=== PATIENT | male | born 1995 | race African-American/Black ===

== ENCOUNTER 2021-07-28 22:53 | Emergency (ER) | payer MEDICAID, SELFPAY ==
[2021-07-28 23:04] VITALS: BP 138/78; PULSE 92; RESP 18; TEMP 36.6; O2SAT 97; BMI 37.5
--- NOTE | 2021-07-28 23:15 | ED_ITS ---
HPI - Psych General Chief Complaint: Psychiatric Symptoms Stated Complaint: PSYCH CRISIS Time Seen by Provider: 07/28/21 23:15 Source: patient Mode of arrival: ambulatory Limitations: no limitations History of Present Illness HPI Narrative: 26-year-old male presents via EMS for a report of bizarre behavior. EMS reports that patient call the police while in the [facility] parking lot to state that he was cold and had no place to go. MD complaint: other (Needs a place to sleep) Onset (ago): day(s) Relieving factors: none Exacerbating factors: none Associated psychiatric symptoms: none Associated symptoms: denies other symptoms Treatments prior to arrival: none Related Data Allergies Allergy/AdvReac Type Severity Reaction Status Date / Time No Known Allergies Allergy Unverified 02/08/20 19:41 [No Known Allergies*] Review of Systems Review of Systems: Yes Other (Unobtainable due to patient noncompliance.) [facility] Past Medical History Attestation statement: The following information was validated with the patient. Source: old records reviewed Physical Exam Vital Signs: Vital Signs: Last Vital Signs Temp 98 F 07/28/21 23:04 Pulse 92 07/28/21 23:04 Resp 18 07/28/21 23:04 BP 138/78 07/28/21 23:04 Pulse Ox 97 07/28/21 23:04 BMI result Body Mass Index 37.5 Appearance: Alert. Oriented X3. No acute distress. Eyes: Pupils equal, round and reactive to light. ENT: Pharynx normal. Neck: Normal inspection. CVS: Normal heart rate Respiratory: No respiratory distress. Abdomen: Soft and nontender. Skin: Skin warm and dry. Normal skin color. Normal skin turgor. Extremities: Gait well-balanced well coordinated. Neuro: No motor deficit. No sensory deficit. Course Course Course Narrative: 26-year-old male presents via EMS for a report of bizarre behavior which included a call to the police department because he was cold and needed a place to sleep. Patient states that he is looking for a place to sleep, does not want to change his clothes, and is very confrontational to all staff. Patient is not answering any questions, however denies being suicidal and homicidal. States he does not have a place to go and just wants a room. Patient states that he feels disrespected, does not feel like he is getting appropriate care, and is not redirectable. Patient was asked by several different people including this CONSTRUCTION SKILLS TEACHER what his purpose for presentation was, and he stated that he just needed a room to sleep in. The only questions he would answer was whether he was suicidal or homicidal. Was only compliant with initial vital signs, did not allow physical exam. Patient stated that he would physically assault all of us if we forced him to change his clothes. As patient is not suicidal or homicidal, and does not present with medical complaint, patient was discharged from this facility. MDM - Psych MDM Narrative Medical decision making narrative: Homeless Medical Records Attestation: I reviewed the patient's medical records. Discharge Plan Discharge Clinical Impression: Cold feeling Patient Disposition: Home, Self-Care Instructions: Conduct Disorder (ED) Additional Instructions: you presented to the emergency department for evaluation however you refused to answer any questions and threatened physical violence. He denied suicidal and homicidal ideation, and did not present with any medical complaints. Thank you for choosing this emergency department for evaluation. Please follow-up with primary care physician as needed. Return to the emergency department for any new, concerning, or worsening symptoms.
--- NOTE | 2021-07-28 23:20 | PC.NURSE ---
Patient refused to comply with exchange clerk process, made repeated verbal threat to the staff member, denied SI/HI/AVH, patient reported he needs a place to stay because it is cold and cant get to [facility], patient refused to address his problem to the provider, when offered option either address his problem (so that we can help) or discharge from the hospital, patient chose discharge option, per patient's choice he was discharged from the [facility] [place], security escorted patient out of ED POD.
== END 2021-07-29 00:15 | disposition home or self-care (01) ==
PROVIDERS: Emergency Provider Internal Medicine
DX: R20.9 Unspecified disturbances of skin sensation (principal); R46.2 Strange and inexplicable behavior; R45.6 Violent behavior; Z91.19 Patient's noncompliance with other medical treatment and regimen
CPT/HCPCS: 99281; 99282

== ENCOUNTER 2021-11-30 01:12 | Emergency (ER) | payer MEDICAID, SELFPAY ==
[2021-11-30 01:19] VITALS: BMI 37.0
--- NOTE | 2021-11-30 01:24 | ED_ITS ---
HPI - Psych General Chief Complaint: Psychiatric Symptoms Stated Complaint: CRISIS Time Seen by Provider: 11/30/21 01:16 Source: patient Mode of arrival: EMS Limitations: no limitations History of Present Illness HPI Narrative: Patient presents emergency department via EMS coming from a fpc at [facility]. Reports that he is here today because he is ?not feeling well? when asked to elaborate on this he says not good mentally . Difficulty obtaining past medical history from patient. He does state that he has not been taking medications for the past 2 months, when asked why he states because he left respite. He denies suicidal or homicidal ideations, denies hallucinations. Denies any street drug or alcohol usage. Denies any recent ill like symptoms, fevers, chills, chest pain, shortness of breath, difficulty breathing, nausea, vomiting, abdominal pain. Related Data Home Medications Medication Instructions Recorded Confirmed No Known Home Meds 11/30/21 11/30/21 Allergies Allergy/AdvReac Type Severity Reaction Status Date / Time No Known Allergies Allergy Unverified 02/08/20 19:41 [No Known Allergies*] Review of Systems Review of Systems: Constitutional : No Fever, No Chills ENT/Mouth : No Ear Pain, No Nasal Congestion, No sore throat Eyes: No Eye Pain, No Swelling, No Redness Cardiovascular : No Chest Pain, No SOB Respiratory : No Cough, No Sputum, No Dyspnea Gastrointestinal : No Nausea, No Vomiting, No Diarrhea, No Hematochezia, No Melena Genitourinary : No Dysuria, No Urinary Frequency, No Hematuria Musculoskeletal : No Myalgias Skin : No Skin Lesions, No rash Neuro : No Weakness, No Numbness, No Paresthesias, No Dizziness, No Headache Psych : Vague mentally unwell no SI/HI Heme/Lymph: No Lymphadenopathy Endocrine : No Polyuria, No Polydipsia Yes all other systems are reviewed and are negative [facility] Past Medical History Attestation statement: The following information was validated with the patient. Source: old records reviewed Social History Social History Advance Directives: No Physical Exam Vital Signs: Vital Signs: Last Vital Signs Temp 98.7 F 11/30/21 01:28 Pulse 92 11/30/21 01:28 Resp 18 11/30/21 01:28 BP 135/85 11/30/21 01:28 Pulse Ox 98 11/30/21 01:28 O2 Del Method 11/30/21 01:28 BMI result Body Mass Index 37.0 Vital signs have been reviewed as normal and appeared to be correct. Blood pressure normal.? Heart rate normal.? Respiration rate normal. Temperature normal.? Oxygen saturation normal. Appearance: Alert.?Oriented to person, place and time. Poor eye contact. Difficulty keeping train of thoughts. Appears to be responding to external stimuli at times. Eyes: Pupils equal, round and reactive to light.? ENT: Pharynx normal.?? Neck: Normal inspection.? Neck supple.?? CVS: Heart sounds normal. Normal heart rate and rhythm.? Pulses normal.?? Respiratory: No respiratory distress.? Lung sounds clear to auscultation bilaterally?? Abdomen: Soft and non-tender. Normoactive bowel sounds. Skin: Skin warm and dry.? Normal skin color.? Extremities: No lower extremity edema.? Neuro: Moves all extremities spontaneously. Sensation intact bilaterally. CN II- XII intact. No focal neuro deficits. Ambulates with normal steady gait. Course Course Course Narrative: Patient is a 26-year-old male with a past medical history of schizophrenia, sent to emergency department today for feeling mentally unwell . Vague historian, however denies SI/HI/hallucinations/drug or alcohol usage. He is overall well- appearing, well-nourished, hemodynamically stable. Answering most questions appropriately. Calm and cooperative with staff. Has no physical complaints at this time. Benign physical exam. Will obtain basic labs, COVID-19 testing, drug of abuse screen and ethanol level. Patient will be referred to [facility] for further evaluation and disposition. Reevaluation(s) Reevaluation #1: Discussed patient with ED attending Dr. Hutton, labs and urinalysis pending at this time. N consult placed, will need to be placed in physician observation as he will require time to be evaluated and have appropriate disposition. Time: 01:42 [facility] - Psych Medical Records Attestation: I reviewed the patient's medical records. Lab Data Attestation: I reviewed the patient's lab results. Labs: Lab Results 11/30/21 Range/Units 01:37 COVID-19 (LUZ MARINA) Negative (Negative) COVID-19 Clin Com See Note Discharge Plan Discharge Clinical Impression: Schizophrenia Patient Disposition: Still a Patient Prescriptions: No Action No Known Home Meds
[2021-11-30 01:28] VITALS: BP 135/85; PULSE 92; RESP 18; TEMP 37.1; O2SAT 98
[2021-11-30 02:03] LABS: COVID-19 Test Negative (Negative); IDNOW Serial# 16C4AD1C
[2021-11-30] MEDS: traZODone HCL 100 MG TABLET PO (03:19)
--- NOTE | 2021-11-30 05:28 | PC.NURSE ---
Went into POD to draw blood on this patient at this time. Pt woke from sleep and refused to have his blood drawn. RN aware and Provider aware.
--- NOTE | 2021-11-30 05:46 | PC.NURSE ---
Patient is in bed appears sleeping, no distress observed/reported, requested for Trazodone for sleep, Trazodone 100 mg administered as ordered at 0319, with + effect, patient refused lab draw, pending urine sample, [facility] referral completed/confirmed/pending ETA, VSS, behavior appropriate, patient is currently not on any medication, will continue to monitor.
--- NOTE | 2021-11-30 07:11 | PC.NURSE ---
patient appears to remain asleep at present respirations are even and unlabored patient appears in no distress
[2021-11-30 07:52] LABS: Amphetamine Screen Urine Not Detected (Not Detect); Barbiturates, Urine Not Detected (Not Detect); Benzodiazepines Screen Urine Not Detected (Not Detect); Cannabinoid Screen Urine Not Detected (Not Detect); Cocaine Screen Urine Not Detected (Not Detect); Fentanyl, urine Not Detected (Not Detect); Opiate Screen Urine Not Detected (Not Detect); Phencyclidine Screen Urine Not Detected (Not Detect)
[2021-11-30 11:34] VITALS: BP 134/107; PULSE 88; RESP 16; TEMP 36.8; O2SAT 99
--- NOTE | 2021-11-30 11:39 | PC.NURSE ---
LAMA Corbin aware of patients BP
== END 2021-11-30 14:29 | disposition home or self-care (01) ==
PROVIDERS: Emergency Medicine; Emergency Provider Student in an Organized Health Care Education/Training Program
DX: F20.9 Schizophrenia, unspecified (principal); Z20.822 Contact with and (suspected) exposure to COVID-19; Z91.14 Patient's other noncompliance with medication regimen
CPT/HCPCS: 80307; 87635; 99284

== ENCOUNTER 2021-12-19 02:05 | Emergency (ER) | payer MEDICAID, SELFPAY ==
--- NOTE | ~2021-12-19 | CT_ITS ---
EXAMINATION: CT HEAD WITHOUT CONTRAST CLINICAL INFORMATION: Fall. Head strike. COMPARISON: None TECHNIQUE: Contiguous axial imaging was performed from the skull base to vertex without intravenous administration of contrast. This CT examination was performed using dose optimization techniques as appropriate, variously including the following: *Automated exposure control *Adjustment of mA and/or kV according to patient size (this includes techniques or standardized protocols for targeted exams where dose is matched to indication/reason for exam; i.e. extremities or head) *Use of iterative reconstruction technique DLP: 752 mGy-cm FINDINGS: There is no evidence of acute intracranial hemorrhage or territorial infarction. No abnormal mass effect or midline shift is seen. Feng to white matter differentiation is well preserved. No extra-axial fluid collections are identified. The ventricles are normal in size. There is no abnormal attenuation within the brain parenchyma. The osseous structures and soft tissues are normal. The mastoid air cells and visualized portions of the paranasal sinuses are well aerated. CT/CT head/brain wo con IMPRESSION: No acute intracranial pathology.
[2021-12-19 02:15] VITALS: BMI 38.5
[2021-12-19] MEDS: LORazepam 1 MG TABLET PO (02:42)
[2021-12-19] MEDS: traZODone HCL 100 MG TABLET PO (02:42)
[2021-12-19 02:58] VITALS: BP 135/84; PULSE 88; RESP 18; TEMP 36.4; O2SAT 97
[2021-12-19 03:57] LABS: COVID-19 Test Negative (Negative)
--- NOTE | 2021-12-19 06:39 | PC.NURSE ---
Patient is in bed appears sleeping, patient restless at the time of arrival, Ativan 1 mg po and Trazodone 100 mg PO administered as ordered at 0242 with positive effect, behavior erratic but non concerning, CT of head completed/result unremarkable, [facility] referral completed/confirmed/pending ETA, med rec completed/patient is off his medication for months, VSS, urine pending, will continue to monitor.
[2021-12-19 08:00] VITALS: RESP 17
--- NOTE | 2021-12-19 09:04 | PC.NURSE ---
pt is sleeping resp even and unlabored. bhn attempted to see pt x 2, pt states/indicated that he is sleepy. bhn to attempt later today.
--- NOTE | 2021-12-19 10:12 | PC.NURSE ---
pt seen by ed mll (december) pt aware of plan of care.
--- NOTE | 2021-12-19 10:54 | ED.PSYCH ---
HPI - Psych General Chief Complaint: Psychiatric Symptoms Stated Complaint: fall Time Seen by Provider: 12/19/21 02:30 Source: patient Mode of arrival: ambulatory Limitations: no limitations History of Present Illness HPI Narrative: 26 yold male with past medical history of schizophrenia, and bipolar brought to ED for evaluation. Patient fell on his head very early this morning and was altered and brought to the ED for evaluation. Due to significant Psycg history EMS started patient should be evaluated for psych. Patient presently denies any suicidal or homicidal thoughts. Patient is not depressed. Patient came to the ED due to him falling hit his head. Patient denies any auditory / visual hallucinations. Related Data Home Medications Medication Instructions Recorded Confirmed No Known Home Meds 12/19/21 12/19/21 Allergies Allergy/AdvReac Type Severity Reaction Status Date / Time No Known Allergies Allergy Unverified 02/08/20 19:41 [No Known Allergies*] Review of Systems Review of Systems: Fall hit his head. Yes all other systems are reviewed and are negative Constitutional: Constitutional: Reports as per HPI and Reports no additional constitutional complaints [facility] Social History Social History Advance Directives: No Advance Directives Information Provided: Yes Physical Exam Vital Signs: Vital Signs: Last Vital Signs Temp 98.2 F 12/19/21 13:49 Pulse 77 12/19/21 13:49 Resp 18 12/19/21 13:49 BP 147/64 H 12/19/21 13:49 Pulse Ox 99 12/19/21 13:49 O2 Del Method 12/19/21 13:49 BMI result Body Mass Index 38.5 Const: General: cooperative, healthy appearing, comfortable, no acute distress, well developed, alert, awake and Physically active Orientation/consciousness: patient oriented x3 HEENT: Head: Yes normal to inspection, Yes No palpable skull fracture present, Yes normocephalic, Yes atraumatic and No abrasion Eyes: General: appearance normal, both eyes and all related structures Neck: Neck: Yes normal visual inspection, Yes full ROM, Yes no lymphadenopathy, Yes no meningeal signs, Yes trachea midline, Yes supple, No anterior neck swelling and No tender Chest: Chest palpation & inspection: normal inspection of the chest and normal palpation of entire chest wall Resp: Effort & Inspection: normal respiratory effort and able to speak in complete sentences Auscultation: clear to auscultation bilaterally Cardio: Jugular venous distension: no JVD Heart sounds: S1 normal heart sound present and S2 normal heart sound present GI: Inspection: Yes normal to inspection and No abdominal wall ecchymosis Palpation (GI): Soft to palpation, not firm, nontender, no guarding and not rigid : General: No CVA tenderness and Yes no CVA tenderness Back/Spine/Pelvis: Back: no CVA tenderness, No CVA tenderness and No back tenderness Skin: General skin exam: no rashes or lesions noted and elasticity normal Neuro: General: patient oriented x3, gait normal, no meningeal signs and CN's II-XI intact bilaterally Cranial nerves: Yes CN's II-XII intact bilaterally Extrem: General: Yes normal to inspection and Yes full ROM Psych: Appearance: grossly normal, well kempt and not disheveled Course Course Course Narrative: patient had head CT scan ordered that was normal. Waiting for UA ND . Crisis consult placed Reevaluation(s) Reevaluation #1: Patient seen by [facility] states patient is safe for discharge. Patient is not suicidal or homicidal. Patient is not depressed. Patient denies any auditory / visual hallucination. She states patient will be discharged and referred psych pharmacological urgent care to get his psych meds. Time: 18:12 MDM - Psych MDM Narrative Medical decision making narrative: head injury. B Lab Data Result diagrams: 12/19/21 16:15 12/19/21 16:15 Labs: Lab Results 12/19/21 12/19/21 12/19/21 Range/Units 03:33 16:15 16:15 WBC 6.2 (4.8-10.8) X10*3/uL RBC 5.33 (4.60-5.80) X10*6/uL Hgb 15.1 (14.0-18.0) g/dl Hct 44.5 (42.0-52.0) % MCV 83.5 (80.0-98.0) fL MCH 28.3 (27.0-33.0) pg MCHC 33.9 (31.0-36.0) g/dl RDW 13.0 (11.0-16.0) % Plt Count 281 (160-400) X10*3/uL MPV 8.9 L (9.4-12.4) fL Immature Gran % (Auto) 0.3 (0.0-0.4) % Neut % (Auto) 50.8 (45-73) % Lymph % (Auto) 34.6 (20-40) % Hudspeth % (Auto) 9.9 (2-11) % Eos % (Auto) 3.9 (0-4) % Baso % (Auto) 0.5 (0-2) % Lymph # (Auto) 2.1 (1.2-4.9) X10*3/uL Hudspeth # (Auto) 0.6 (0.1-1.2) X10*3/uL Eos # (Auto) 0.2 (0.0-0.4) X10*3/uL Baso # (Auto) 0.0 (0.0-0.2) X10*3/uL Abs Immat Gran (auto) 0.02 (0.00-0.03) X10*3/uL Absolute Neuts (auto) 3.1 (2.0-8.3) x10*3/uL Absolute Nucleated RBC 0.000 (0.0-0.012) X10*3/uL Nucleated RBC % (auto) 0.0 (0.0-0.2) /100WBC Sodium 142 (135-145) mmol/L Potassium 4.1 (3.3-5.1) mmol/L Chloride 104 (96-108) mmol/L Carbon Dioxide 27 (22-29) mmol/L Anion Gap 15 (12-20) BUN 12 (9-16) mg/dL Creatinine 1.37 (0.5-1.4) mg/dL Estim Creat Clear Calc 117.8 Estimated GFR > 60 Random Glucose 105 (60-115) mg/dL Calcium 9.9 (8.4-10.2) mg/dL Total Bilirubin 0.4 (0.0-1.0) mg/dL AST 40 H (5-37) U/L ALT 44 H (0-40) U/L Alkaline Phosphatase 91 (39-117) U/L Total Protein 8.2 H (6.5-8.0) g/dL Albumin 5.0 (3.5-5.0) g/dL Urine Opiates Screen (Not Detect) Urine Fentanyl Screen (Not Detect) Ur Barbiturates Screen (Not Detect) Ur Phencyclidine Scrn (Not Detect) Ur Amphetamines Screen (Not Detect) U Benzodiazepines Scrn (Not Detect) Urine Cocaine Screen (Not Detect) U Marijuana (THC) Screen (Not Detect) COVID-19 ([facility]Z MARINA) Negative (Negative) COVID-19 Clin Com See Note 12/19/21 Range/Units 16:15 WBC (4.8-10.8) X10*3/uL RBC (4.60-5.80) X10*6/uL Hgb (14.0-18.0) g/dl Hct (42.0-52.0) % MCV (80.0-98.0) fL MCH (27.0-33.0) pg MCHC (31.0-36.0) g/dl RDW (11.0-16.0) % Plt Count (160-400) X10*3/uL MPV (9.4-12.4) fL Immature Gran % (Auto) (0.0-0.4) % Neut % (Auto) (45-73) % Lymph % (Auto) (20-40) % Hudspeth % (Auto) (2-11) % Eos % (Auto) (0-4) % Baso % (Auto) (0-2) % Lymph # (Auto) (1.2-4.9) X10*3/uL Hudspeth # (Auto) (0.1-1.2) X10*3/uL Eos # (Auto) (0.0-0.4) X10*3/uL Baso # (Auto) (0.0-0.2) X10*3/uL Abs Immat Gran (auto) (0.00-0.03) X10*3/uL Absolute Neuts (auto) (2.0-8.3) x10*3/uL Absolute Nucleated RBC (0.0-0.012) X10*3/uL Nucleated RBC % (auto) (0.0-0.2) /100WBC Sodium (135-145) mmol/L Potassium (3.3-5.1) mmol/L Chloride (96-108) mmol/L Carbon Dioxide (22-29) mmol/L Anion Gap (12-20) BUN (9-16) mg/dL Creatinine (0.5-1.4) mg/dL Estim Creat Clear Calc Estimated GFR Random Glucose (60-115) mg/dL Calcium (8.4-10.2) mg/dL Total Bilirubin (0.0-1.0) mg/dL AST (5-37) U/L ALT (0-40) U/L Alkaline Phosphatase (39-117) U/L Total Protein (6.5-8.0) g/dL Albumin (3.5-5.0) g/dL Urine Opiates Screen Not Detected (Not Detect) Urine Fentanyl Screen Not Detected (Not Detect) Ur Barbiturates Screen Not Detected (Not Detect) Ur Phencyclidine Scrn Not Detected (Not Detect) Ur Amphetamines Screen Not Detected (Not Detect) U Benzodiazepines Scrn Not Detected (Not Detect) Urine Cocaine Screen Not Detected (Not Detect) U Marijuana (THC) Screen Not Detected (Not Detect) COVID-19 ([facility]Z MARINA) (Negative) COVID-19 Clin Com Discharge Plan Discharge Clinical Impression: Bipolar disorder, Head injury Patient Disposition: Home, Self-Care Instructions: Bipolar Disorder (ED), Head Injury (ED) Additional Instructions: return to the ED for any suicidal / homicidal ideation, auditory/visual hallucinations, any physical complaints, any other concerning symptoms. Please follow-up with urgent care to get your prescriptions. Please follow-up with the primary care provider and psychiatrist. Prescriptions: No Action No Known Home Meds Print Language: Pakistani
[2021-12-19 13:49] VITALS: BP 147/64; PULSE 77; RESP 18; TEMP 36.8; O2SAT 99
--- NOTE | 2021-12-19 15:26 | PC.NURSE ---
SARIKA LAM (CHD, ) CALL AND WAS UPDATED ON PT STATUS.
[2021-12-19 16:21] LABS: MANUAL DIFF FLAG NO
[2021-12-19 16:23] LABS: Basophils Percent Auto 0.5 % (0-2); Eosinophils Absolute Auto 0.2 X10*3/uL (0.0-0.4); Eosinophils Percent Auto 3.9 % (0-4); Hematocrit 44.5 % (42.0-52.0); Hemoglobin 15.1 g/dl (14.0-18.0); Imm Gran Abs Auto 0.02 X10*3/uL (0.00-0.03); Imm Gran Pct Auto 0.3 % (0.0-0.4); Lymphocytes Absolute Auto 2.1 X10*3/uL (1.2-4.9); Lymphocytes Percent Auto 34.6 % (20-40); Mean Corpuscular HGB Conc 33.9 g/dl (31.0-36.0); Mean Corpuscular Hemoglobin 28.3 pg (27.0-33.0); Mean Corpuscular Volume 83.5 fL (80.0-98.0); Mean Platelet Volume 8.9 fL (9.4-12.4); Monocytes Absolute Auto 0.6 X10*3/uL (0.1-1.2); Monocytes Percent Auto 9.9 % (2-11); Neutrophils Absolute Auto 3.1 x10*3/uL (2.0-8.3); Neutrophils Percent Auto 50.8 % (45-73); Platelet Count 281 X10*3/uL (160-400); Red Blood Count 5.33 X10*6/uL (4.60-5.80); White Blood Count 6.2 X10*3/uL (4.8-10.8)
[2021-12-19 16:44] LABS: Amphetamine Screen Urine Not Detected (Not Detect); Barbiturates, Urine Not Detected (Not Detect); Benzodiazepines Screen Urine Not Detected (Not Detect); Cannabinoid Screen Urine Not Detected (Not Detect); Cocaine Screen Urine Not Detected (Not Detect); Fentanyl, urine Not Detected (Not Detect); Opiate Screen Urine Not Detected (Not Detect); Phencyclidine Screen Urine Not Detected (Not Detect)
[2021-12-19 16:45] LABS: Alanine Aminotransferase 44 U/L (0-40); Alkaline Phosphatase 91 U/L (39-117); Anion Gap 15 (12-20); Aspartate Amino Transferase 40 U/L (5-37); Bilirubin Total 0.4 mg/dL (0.0-1.0); Blood Urea Nitrogen 12 mg/dL (9-16); Calcium 9.9 mg/dL (8.4-10.2); Carbon Dioxide 27 mmol/L (22-29); Chloride 104 mmol/L (96-108); Creatinine Clr Calc Pharmacy 117.8; Estimated Glomerular Filt Rate > 60; Glucose Random 105 mg/dL (60-115); Potassium 4.1 mmol/L (3.3-5.1); Sodium 142 mmol/L (135-145); Total Protein 8.2 g/dL (6.5-8.0)
--- NOTE | 2021-12-19 17:32 | PC.NURSE ---
[facility] HERE FOR PT ASSESSMENT.
[2021-12-19 21:50] LABS: Appearance Urine CLEAR; Color Urine YELLOW; Glucose Urine UA NEG (NEG); Leukocyte Esterase Urine NEG (NEG); Nitrite Urine NEG (NEG); PH 5.5 (5.0-8.0); Specific Gravity - Urine >= 1.030 (1.005-1.025); Urine Blood TRACE (NEG); Urine Ketones NEG (NEG); Urine Protein NEG (NEG-TRACE)
[2021-12-19 21:58] LABS: Hyaline Casts Urine 0-2 /LPF; Mucus Urine 1+ /LPF; Squamous Epithelial Cell Urine TRACE /LPF
[2021-12-19 21:59] LABS: WBC Urine 0-2 /HPF (0-4)
== END 2021-12-19 18:41 | disposition home or self-care (01) ==
PROVIDERS: Physician Assistant; Emergency Provider Student in an Organized Health Care Education/Training Program
DX: F25.0 Schizoaffective disorder, bipolar type (principal); S09.90XA Unspecified injury of head, initial encounter; W19.XXXA Unspecified fall, initial encounter; F32.A Depression, unspecified; Z20.822 Contact with and (suspected) exposure to COVID-19; Y93.9 Activity, unspecified; Y92.9 Unspecified place or not applicable; Y99.8 Other external cause status
CPT/HCPCS: 36415; 70450; 80053; 80307; 81001; 85025; 87635; 99283; 99284

== ENCOUNTER 2021-12-26 05:52 | Emergency (ER) | payer MEDICAID, SELFPAY ==
[2021-12-26 05:55] VITALS: BP 137/78; PULSE 84; RESP 16; TEMP 36.3; O2SAT 96; BMI 35.9
[2021-12-26 06:27] LABS: COVID-19 Test Negative (Negative)
--- NOTE | 2021-12-26 06:37 | ED.PSYCH ---
HPI - Psych General Chief Complaint: Psychiatric Symptoms Stated Complaint: crisis Time Seen by Provider: 12/26/21 06:37 Source: patient Mode of arrival: EMS Limitations: no limitations History of Present Illness HPI Narrative: states he just needs a break from the senior living Onset (ago): day(s) (few) Duration: constant History of same: No Relieving factors: none Exacerbating factors: other (senior living) Context: significant life stressor Associated psychiatric symptoms: depression Associated symptoms: denies other symptoms Treatments prior to arrival: none Related Data Home Medications Medication Instructions Recorded Confirmed No Known Home Meds 12/26/21 12/26/21 Allergies Allergy/AdvReac Type Severity Reaction Status Date / Time No Known Allergies Allergy Unverified 02/08/20 19:41 [No Known Allergies*] Review of Systems Review of Systems: Constitutional : No Fever, No Chills ENT/Mouth : No Ear Pain, No Nasal Congestion, No sore throat Eyes: No Eye Pain, No Swelling, No Redness Cardiovascular : No Chest Pain, No SOB Respiratory : No Cough, No Sputum, No Dyspnea Gastrointestinal : No Nausea, No Vomiting, No Diarrhea, No Hematochezia, No Melena Genitourinary : No Dysuria, No Urinary Frequency, No Hematuria Musculoskeletal : No Myalgias Skin : No Skin Lesions, No rash Neuro : No Weakness, No Numbness, No Paresthesias, No Dizziness, No Headache Psych : no Anxiety, positive Depression, no SI/HI Heme/Lymph: No Lymphadenopathy Endocrine : No Polyuria, No Polydipsia All other systems reviewed and are negative [facility] Past Medical History Attestation statement: The following information was validated with the patient. Medical History No pertinent past medical history Social History Social History (Updated 12/26/21 @ 07:39 by Rhina Laguna DO) Patient Tobacco Use Status: Never used Tobacco Use of substances other than those prescribed or required for medical reasons: No Advance Directives: No Advance Directives Information Provided: No Physical Exam Vital Signs: Vital Signs: Last Vital Signs Temp 98.2 F 12/26/21 07:55 Pulse 90 12/26/21 07:55 Resp 13 12/26/21 07:55 BP 117/54 L 12/26/21 07:55 Pulse Ox 97 12/26/21 07:55 O2 Del Method 12/26/21 07:55 BMI result Body Mass Index 35.9 Appearance: Alert. Oriented X3. No acute distress. Withdrawn flat affect Eyes: Pupils equal, round and reactive to light. ENT: Pharynx normal. Neck: Normal inspection. Neck supple. CVS: Normal heart rate and rhythm. Pulses normal. Respiratory: No respiratory distress. Breath sounds normal. Abdomen: Soft and nontender. Skin: Skin warm and dry. Normal skin color. Normal skin turgor. Extremities: No lower extremity edema. Neuro: Oriented X 3. No motor deficit. No sensory deficit. CN 2-12 intact Course Course Course Narrative: Physician observation started at 740am. Patient placed in physician observation because the patient needed more time for N to assess the need for psych admission. At the time observation was started the patient's vitals were stable, patient is alert and oriented, Neuro: nonfocal, CV RRR, Lungs clear Physician observation ended at 1222pm Patient seen and cleared by crisis. Plan is to follow up as outpatient NAD, lungs clear, CV RRR, Abd nontender, Neuro intact. Disposition is for respite MDM - Psych MDM Narrative Medical decision making narrative: 26 yo male with no sig PMH no prior dx of mental illness no inpatient stays per his reports comes with depression - he is withdrawn with flat affect having a hard time in the senior living, just states over and over he needs a break from the senior living. Will refer to [facility] team Lab Data Labs: Lab Results 12/26/21 12/26/21 Range/Units 06:07 10:31 Urine Opiates Screen Not Detected (Not Detect) Urine Fentanyl Screen Not Detected (Not Detect) Ur Barbiturates Screen Not Detected (Not Detect) Ur Phencyclidine Scrn Not Detected (Not Detect) Ur Amphetamines Screen Not Detected (Not Detect) U Benzodiazepines Scrn Not Detected (Not Detect) Urine Cocaine Screen Not Detected (Not Detect) U Marijuana (THC) Screen Not Detected (Not Detect) COVID-19 (LUZ MARINA) Negative (Negative) COVID-19 Clin Com See Note Discharge Plan Discharge Clinical Impression: Chronic schizophrenia Patient Disposition: Home, Self-Care Instructions: Schizophrenia (ED) Additional Instructions: return to ED for any worsening symptoms or concerns please go to respite Prescriptions: No Action No Known Home Meds
--- NOTE | 2021-12-26 06:56 | PC.NURSE ---
[facility] referral completed/confirmed/pending ETA, behavior non concerning, off medication for months, will continue to monitor.
[2021-12-26 07:55] VITALS: BP 117/54; PULSE 90; RESP 13; TEMP 36.8; O2SAT 97
[2021-12-26 10:54] LABS: Amphetamine Screen Urine Not Detected (Not Detect); Barbiturates, Urine Not Detected (Not Detect); Benzodiazepines Screen Urine Not Detected (Not Detect); Cannabinoid Screen Urine Not Detected (Not Detect); Cocaine Screen Urine Not Detected (Not Detect); Fentanyl, urine Not Detected (Not Detect); Opiate Screen Urine Not Detected (Not Detect); Phencyclidine Screen Urine Not Detected (Not Detect)
== END 2021-12-26 13:26 | disposition home or self-care (01) ==
PROVIDERS: Emergency Provider Emergency Medicine
DX: F33.1 Major depressive disorder, recurrent, moderate (principal); F25.9 Schizoaffective disorder, unspecified; Z20.822 Contact with and (suspected) exposure to COVID-19; Z79.899 Other long term (current) drug therapy
CPT/HCPCS: 80307; 87635; 99284; 99285

== ENCOUNTER 2022-01-03 22:54 | Emergency (ER) | payer MEDICAID, SELFPAY ==
--- NOTE | ~2022-01-03 | XR_ITS ---
EXAMINATION: XR KNEE, RIGHT CLINICAL INFORMATION: Knee pain. COMPARISON: None TECHNIQUE: Four views of the right knee. FINDINGS: Status post ACL repair. No acute abnormality. No fracture. No dislocation. No joint effusion. Joint spaces are normal. XR/XR knee RT 4V IMPRESSION: No acute abnormality. Status post ACL repair.
[2022-01-03 22:58] VITALS: BP 128/80; PULSE 88; O2SAT 100
[2022-01-03 23:12] VITALS: BP 141/81; PULSE 82; RESP 18; TEMP 36.7; O2SAT 98; BMI 36.9
--- NOTE | 2022-01-03 23:53 | ED_ITS ---
HPI - General Adult General Chief complaint: Extremity Injury, Lower Stated complaint: knee pain Time Seen by Provider: 01/03/22 23:52 Source: patient and EMS Mode of arrival: EMS Limitations: no limitations History of Present Illness HPI narrative: 26-year-old male with a past medical history of torn ACL, MCL, PCL, all of the right knee, presents to the emergency department with right knee pain that started today. Patient states that he was playing football and taking tight turns while running when his right knee suddenly gave out. He reports feeling a pop. Now patient reports being unable to bend/straighten right knee due to pain, some mild joint swelling, and tenderness just to the medial aspect of his right patella. He denies falling to his knees or any trauma to his right knee. He denies fever, chills, headache, vision changes, chest pain, shortness of breath, nausea, vomiting, diarrhea, and abdominal pain. Patient denies any loss of consciousness with the incident. Onset (ago): hour(s) Location: right and lower extremity Radiation: non-radiation Severity: mild Severity scale (1-10): 3 Quality: dull Pain Consistency: constant Relieving factors: immobilization Exacerbating factors: movement Associated symptoms: denies other symptoms Treatments prior to arrival: none Related Data Home Medications Medication Instructions Recorded Confirmed No Known Home Meds 12/26/21 12/26/21 Allergies Allergy/AdvReac Type Severity Reaction Status Date / Time No Known Allergies Allergy Verified 01/03/22 23:16 [No Known Allergies*] Review of Systems Constitutional: Constitutional: Reports as per HPI, Denies chills, Denies fatigue, Denies fever(s), Denies headache(s) and Denies malaise Eyes: Eyes: Reports as per HPI and Denies change in vision ENT: Denies headache(s) Cardiovascular: Cardiovascular: Reports as per HPI, Denies chest pain and Denies dyspnea Respiratory: Respiratory: Reports as per HPI and Denies dyspnea Gastrointestinal: Gastrointestinal: Reports as per HPI, Denies abdominal pain, Denies diarrhea, Denies nausea and Denies vomiting Genitourinary: Genitourinary: Reports no additional male genitourinary complaints, Denies hematuria, Denies oliguria, Denies difficulty urinating, Denies dysuria, Denies urinary frequency, Denies urinary hesitancy, Denies urinary incontinence and Denies urinary urgency Musculoskeletal: Musculoskeletal: Reports arthralgias, Reports joint swelling and Reports limited range of motion Neurologic: Denies headache(s) Psychiatric: Psychiatric: Reports no additional psychiatric complaints Endocrine: Endocrine: Denies fatigue Hematologic/Lymphatic: Hematologic/Lymphatic: Reports no additional hematologic/lymphatic complaints Allergic/Immunologic: Allergic/Immunologic: Reports no additional allergic/immunologic complaints PMFSH Past Medical History Attestation statement: The following information was validated with the patient. Source: old records reviewed Medical History No pertinent past medical history Social History Social History Patient Tobacco Use Status: Never used Tobacco Advance Directives: No Advance Directives Information Provided: Yes Physical Exam ED Vital Signs: Vital Signs - 24 hr 01/03/22 23:12 Temperature 98.1 F Pulse Rate 82 Respiratory Rate 18 Blood Pressure 141/81 H Pulse Oximetry 98 Oxygen Delivery Method Room Air BMI result Body Mass Index 36.9 Const General: cooperative, no acute distress, alert and awake Nutritional Appearance: well nourished Orientation/consciousness: patient oriented x3 Limitations: no limitations HENMT Head: Yes normal to inspection and Yes atraumatic Ears: hearing grossly normal bilaterally and external ears normal General nose exam: Normal external nose present, no nasal discharge noted and no epistaxis Face and sinus: Yes normal facial exam, No abrasion and No laceration Mouth: Normal oral and palatal mucosa present, no drooling and no muffled voice Eyes General: appearance normal, both eyes and all related structures Periorbital: periorbital findings normal Eyelids: Yes eyelids normal Conjunctivae: conjunctivae normal Pupils: Equal, round and reactive pupils present EOM: EOMs intact bilaterally Neck Neck: Yes normal visual inspection, Yes full ROM and Yes no lymphadenopathy Chest Chest palpation & inspection: normal inspection of the chest Resp Effort & Inspection: normal respiratory effort and able to speak in complete sentences Auscultation: clear to auscultation bilaterally Cardio Rate: regular rate Rhythm: regular rhythm GI Inspection: Yes normal to inspection Neuro General: patient oriented x3 and moves all extremities Cranial nerves: Yes Equal, round and reactive pupils present Cognition (Neuro): normal cognition Motor exam (neuro): 5/5 motor strength present throughout Sensory Exam: Normal double simultaneous stimulation for sensation Coordination: [id number] test normal Extrem Other: limited ROM of the right knee secondary to pain General: Yes normal to inspection and Yes capillary refill normal Right lower extremity: knee Details: tenderness Location: of the patella Details: medially and abnormal ROM Details: pain with active ROM during Details: in extension and in flexion; no ecchymosis, no crepitus and no deformity Psych Appearance: grossly normal Mental Status: mental status grossly normal Affect: normal affect Attitude: cooperative Thought process: Normal thought process present Thought content: Normal thought content present Insight: Good insight present (Psych) Procedures Orthopedic Splinting/Casting Injury #1: Side: right Lower Extremity Injury Location: knee Lower Extremity Immobilizer: knee immobilizer Other Orthopedic Equipment: crutches Medical Decision Making MDM Narrative Medical decision making narrative: Patient is a 26 year old male presenting to the emergency department today with right knee pain. Patient's physical exam showed pain with ROM of the right knee but was otherwise unremarkable. Patient's right knee x-ray showed no acute process. I explained my physical exam findings as well as all test results to the patient. I answered all questions asked by the patient. Patient's right knee was placed in an immobilizer and given crutches with crutch instructions. I stressed the importance of the patient taking his medication as prescribed. I stressed the importance of the patient following up with his primary care provider and an orthopedic provider. I stressed the importance of the patient returning to the emergency department immediately if his symptoms were to worsen or if he were to develop any dizziness, shortness of breath, difficulty breathing, chest pain, blurry vision, loss of vision, nausea, vomiting, abdominal pain, fever, chills, back pain, or any other complaints. Patient verbalized agreement and understanding with this treatment plan and discharge. Differential Diagnosis Differential Diagnosis: Right knee injury Medical Records Medical records reviewed: Yes I reviewed the patient's medical records. Imaging Data Right knee x-ray: Attestation: I personally reviewed and interpreted this imaging study as follows: My impression: No acute process. Radiologist's impression: EXAMINATION: XR KNEE, RIGHT? CLINICAL INFORMATION: Knee pain.? COMPARISON: None? TECHNIQUE: Four views of the right knee. FINDINGS: Status post ACL repair. No acute abnormality. No fracture. No dislocation. No joint effusion. Joint spaces are normal. XR/XR knee RT 4V IMPRESSION: No acute abnormality. Status post ACL repair. ? Dictated By: Lyndon Mulligan MD Signed By: Electronically signed by Lyndon Mulligan MD 01/03/22 8341 Discharge Plan Discharge Clinical Impression: Injury of knee Patient Disposition: Home, Self-Care Instructions: Crutch Instructions (ED), Knee Pain (ED), Knee Immobilizer (ED) Additional Instructions: Follow up with your primary care provider and an orthopedic provider. Return to the emergency department immediately if your symptoms worsen or if you develop any dizziness, shortness of breath, difficulty breathing, chest pain, blurry vision, loss of vision, nausea, vomiting, abdominal pain, fever, chills, back pain, or any other complaints. Prescriptions: No Action No Known Home Meds Referrals: [facility] [Provider Group] (Call to establish and follow up with a primary care provider. If you already have a primary care provider, follow up with them. ) [facility] Primary Care, Rosa M [Provider Group] (Call to establish and follow up with a primary care provider. If you already have a primary care provider, follow up with them. ) [facility] [place] Primary Care,Vazquez [Provider Group] (Call to establish and follow up with a primary care provider. If you already have a primary care provider, follow up with them. ) [facility] [Provider Group] (Call to establish and follow up with an orthopedic provider. ) Stand Alone Forms: Work/School Release Interventions: ED Discharge Assessment Last Done: 01/04/22 01:20 Discharge Date/Time: 01/04/22 01:21 Print Language: Grenadian
[2022-01-04] MEDS: Ketorolac Tromethamine 15 MG/ML VIAL IM (00:48)
== END 2022-01-04 01:21 | disposition home or self-care (01) ==
PROVIDERS: Emergency Provider Emergency Medicine
DX: S89.91XA Unspecified injury of right lower leg, initial encounter (principal); M25.561 Pain in right knee; Y33.XXXA Other specified events, undetermined intent, initial encounter; Y93.61 Activity, american tackle football; Y92.321 Football field as the place of occurrence of the external cause; Y99.9 Unspecified external cause status
CPT/HCPCS: 29505; 73564; 96372; 99283; 99284; J1885

== ENCOUNTER 2022-03-19 02:19 | Emergency (ER) | payer MEDICAID, SELFPAY ==
[2022-03-19 02:34] VITALS: BMI 30.5
--- NOTE | 2022-03-19 02:51 | ED.PSYCH ---
HPI - Psych General Chief Complaint: Psychiatric Symptoms Stated Complaint: bipolar Time Seen by Provider: 03/19/22 02:45 Source: patient Mode of arrival: EMS Limitations: no limitations History of Present Illness HPI Narrative: patient with bipolar disorder not on any medications feels too depressed denies any suicidal ideation no hallucinations or delusions requesting to be seen by therapist may be inpatient Related Data Home Medications Medication Instructions Recorded Confirmed No Known Home Meds 12/26/21 12/26/21 Allergies Allergy/AdvReac Type Severity Reaction Status Date / Time No Known Allergies Allergy Verified 01/03/22 23:16 [No Known Allergies*] Review of Systems Review of Systems: Yes all other systems are reviewed and are negative [facility] Past Medical History Medical History No pertinent past medical history Social History Social History Patient Tobacco Use Status: Never used Tobacco Advance Directives: No Advance Directives Information Provided: No Physical Exam Vital Signs: Vital Signs: Last Vital Signs Temp 98.2 F 03/19/22 03:50 Pulse 78 03/19/22 03:50 Resp 18 03/19/22 03:50 BP 129/77 03/19/22 03:50 Pulse Ox 96 03/19/22 03:50 O2 Del Method 03/19/22 03:50 BMI result Body Mass Index 30.5 Appearance: Alert. Oriented X3. No acute distress. flat affect Eyes: PERRLA, No Nystagmus ENT: Pharynx normal. Oral Mucosa moist Neck: Normal inspection. Neck supple. CVS: Normal heart rate and rhythm. Pulses normal. Respiratory: No respiratory distress. Equal air entry bilateral, no wheezing/rales/rhonchi Abdomen: Soft and nontender. Bowel sounds are present, no mass palpable, no CVA tenderness Skin: Skin warm and dry. Normal skin color. Normal skin turgor. Extremities: No lower extremity edema. No calf tenderness psych; look depressed, denies any hallucination or delusions no suicidal ideation at this time fair judgment Neuro: Oriented X 3. No motor deficit. No sensory deficit.No cerebellar signs , cranial nerves II-XII intact MDM - Psych MDM Narrative Medical decision making narrative: patient depression comes here for increased depression will get crisis evaluation. Patient refused any blood draw clinically stable Differential Diagnosis Differential diagnosis: Likely bipolar disorder and depression Lab Data Labs: Lab Results 03/19/22 Range/Units 03:15 COVID-19 ([facility]) Negative (Negative) COVID-19 Clin Com See Note Discharge Plan Discharge Clinical Impression: Depression Patient Disposition: Still a Patient Prescriptions: No Action No Known Home Meds
[2022-03-19] MEDS: LORazepam 1 MG TABLET 2 MG PO (03:25)
[2022-03-19 03:31] LABS: COVID-19 Test Negative (Negative)
[2022-03-19 03:50] VITALS: BP 129/77; PULSE 78; RESP 18; TEMP 36.8; O2SAT 96
[2022-03-19 05:34] VITALS: BP 121/73; PULSE 71; RESP 18; O2SAT 96
--- NOTE | 2022-03-19 05:57 | PC.NURSE ---
I assumed nursing care of Jefe upon his arrival to ED bed 9. He arrived via EMS from a local homeless intermediate after he called 911 for help. On arrival he has a flat affect but at times is observed talking and laughing to himself. He is calm and cooperative, very soft spoken. He denies SI. He denies HI. He has refused labs, MD Moore aware. He has been taking PO fluids without difficulty. He has ambulated to and from the bathroom independently and with steady gait. Awaiting crisis eval.
[2022-03-19 06:40] LABS: Amphetamine Screen Urine Not Detected (Not Detect); Barbiturates, Urine Not Detected (Not Detect); Benzodiazepines Screen Urine Not Detected (Not Detect); Cannabinoid Screen Urine Not Detected (Not Detect); Cocaine Screen Urine Not Detected (Not Detect); Fentanyl, urine Not Detected (Not Detect); Opiate Screen Urine Not Detected (Not Detect); Phencyclidine Screen Urine Not Detected (Not Detect)
[2022-03-19 07:32] VITALS: BP 135/84; PULSE 87; RESP 14; TEMP 36.5; O2SAT 97
--- NOTE | 2022-03-19 07:43 | MHC.CARE ---
Smart sheet submitted
--- NOTE | 2022-03-19 08:23 | PC.NURSE ---
Patient continues to refuse blood work.
--- NOTE | 2022-03-19 10:15 | MHC.CARE ---
CARE Team followed up with pt's housing at [facility] in [place] and spoke to Sharon Romeo ([phone]). Sharon provided information regarding pt's typical level of functioning. Sharon reported that pt has been behaving abnormally recently. She reported pt to be aggressive and confrontational with residents at the [facility] which is not pt's baseline. Sharon reported that pt has recently been having AH and verbal outbursts including symptoms of paranoia and PTSD. When asked about her thoughts on pt returning, Sharon feels pt would benefit from more support.
--- NOTE | 2022-03-19 10:45 | MHC.CARE ---
CARE Team and CARE Team automotive internet sales manager met with Pt who self presented to the ED for depression and wanting to speak with crisis. Pt presented as calm, cooperative, and engaged. Pt state he denies current SI/HI/AH/VH. Pt reported he is diagnosed with schizoaffective disorder bipolar type. Pt reports he lives in [facility] transitional housing and they are working with him on housing. Pt reports providers through [facility]. CARE Team automotive internet sales manager spoke with Pts case manger-see note. Pt is advocating for respite admission. CARE Team and Pt discussed limitations of respite admission from the ED. Plan for Pt to be discharged to [facility] office for crisis eval/ respite admission. CARE Team spoke with [facility] Triage regarding Pts case. They are aware of Pt is coming to receive crisis eval/inpt. CARE Team reviewed case with Dr. Laguna who is an agreement with plan of care.
--- NOTE | 2022-03-19 11:02 | MHC.CARE ---
CARE Team followed up with pt's manager of case, Sharon Romeo informing her of pt's discharge to [facility] on [facility]. Sharon requested for [facility] to contact her once pt is there. T/W contacted [facility] crisis and spoke to Tanmay to relay the information. [facility] will contact Sharon for an update with pt's release.
== END 2022-03-19 10:27 | disposition home or self-care (01) ==
PROVIDERS: Emergency Provider Internal Medicine
DX: F33.1 Major depressive disorder, recurrent, moderate (principal); Z79.899 Other long term (current) drug therapy; Z20.822 Contact with and (suspected) exposure to COVID-19
CPT/HCPCS: 80307; 87635; 99284; 99285

== ENCOUNTER 2022-07-10 11:00 | Emergency (ER) | payer MEDICAID, SELFPAY ==
--- NOTE | ~2022-07-10 | MR_ITS ---
EXAMINATION: MR BRAIN WITHOUT CONTRAST MR NECK WITHOUT AND WITH CONTRAST CLINICAL INFORMATION: Diplopia. Neck mass. COMPARISON: CTA head and neck from 07/10/2022. TECHNIQUE: MRI of the brain was obtained using routine sequences without contrast. Additional MRI of the neck was obtained without and following the administration of 10 mL of Gadavist intravenous contrast. FINDINGS: Brain: No focal restricted diffusion is demonstrated to suggest acute or subacute cerebral ischemia. No evidence of acute or chronic hemorrhagic products on heme-sensitive imaging. Normal parenchymal signal characteristics. The ventricles are normal in morphology and size. No abnormal mass effect. No midline shift. The sella turcica is mildly expanded with flattening of the pituitary gland. The suprasellar cistern remains widely patent. The cerebellar tonsils are mildly low lying, positioned 0.4 cm below the foramen magnum. The CSF space of the foramen magnum is maintained. Normal arterial and venous vascular flow voids are present. No abnormal contrast enhancement. Normal, homogeneous marrow signal. Mild mucosal thickening of the paranasal sinuses. No signal abnormalities within the mastoids. Neck: There is a T2 hyperintense lobulated structure in the left retropharyngeal soft tissues, measuring up to 3.1 x 1.9 x 2.9 cm. There is inherent T1 isointensity and T2 hyperintensity associated with this lesion. This lesion demonstrates patchy enhancement on early postcontrast imaging appears to fill completely with contrast on postcontrast imaging delayed by 5 minutes. No significant cutaneous thickening or subcutaneous inflammation. No discrete fluid collection within the deep tissues of the neck. Redemonstrated partial effacement of the left parapharyngeal adipose tissue. The premaxillary, retromaxillary, pterygopalatine fossa, orbital apical, right parapharyngeal, and prelaryngeal adipose tissue is maintained. Normal appearance of the parotid, submandibular, and thyroid glands. Scattered subcentimeter lymph nodes bilaterally, none of which are pathologically enlarged or abnormally enhancing. No demonstrated focal lesions or abnormal enhancement within the intrinsic tissues of the tongue or floor of mouth. Otherwise, normal mucosal contours of the pharynx and larynx without abnormal enhancement. The atlantooccipital and atlantoaxial articulations remain well aligned. There is anatomic alignment of the vertebral bodies and posterior elements. No epidural collection. There is no prevertebral soft tissue swelling. The major vascular flow voids of the neck are maintained. MR/MR orbits face neck wo/w con IMPRESSION: 1. There is a 3.1 cm lobulated lesion in the left retropharyngeal soft tissues. This lesion demonstrates patchy enhancement on early postcontrast imaging that fills in on delayed imaging. 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 2. No acute intracranial abnormalities. No additional abnormal intracranial enhancement. 3. Nonspecific partially empty sella turcica and mild cerebellar tonsillar ectopia. This constellation of findings is nonspecific but may be seen in the setting of idiopathic intracranial hypertension.
--- NOTE | ~2022-07-10 | CT_ITS ---
CT ANGIOGRAM NECK WITH CONTRAST CT ANGIOGRAM BRAIN WITH CONTRAST CLINICAL INFORMATION: Diplopia. COMPARISON: Head CT 12/19/2021. TECHNIQUE: Test bolus sequences followed by intravenous administration 80 mL of Omnipaque 350. Helical imaging was performed in the axial plane from the thoracic inlet to the skull vertex. Delayed postcontrast imaging of the head was also performed. The data was processed at the fibre technologist workstation for generation of MIP sequences. Angled MIPs and volume rendered reformatted images were also generated at an offline 3D workstation under concurrent supervision. Stenoses are assessed in accordance with NASCET criteria unless otherwise indicated. This CT examination was performed using dose optimization techniques as appropriate, variously including the following: *Automated exposure control *Adjustment of mA and/or kV according to patient size (this includes techniques or standardized protocols for targeted exams where dose is matched to indication/reason for exam; i.e. extremities or head) *Use of iterative reconstruction technique FINDINGS: BRAIN: [There is no intracranial hemorrhage, hydrocephalus, extra-axial surface collection, midline shift, or other herniation pattern. Feng to white matter differentiation is diffusely maintained without evidence of an evolved acute territorial infarct. The basilar cisterns are preserved. No significant soft tissue abnormality. No acute osseous abnormality. There is mild sinus mucosal disease. CERVICAL SOFT TISSUES AND LUNG APICES: [There is a 2.7 cm mass within the left posterolateral parapharyngeal soft tissues on image 59 of series 10 that slightly distorts the adjacent oropharynx for which a MRI with and without IV contrast is recommended for further assessment. NECK CTA: [There is a classic 3 vessel configuration of the aortic arch. The left common carotid artery arises from the brachiocephalic artery, an anatomic variant. No significant ostial stenosis is visualized on either side. Both vertebral arteries are widely patent throughout their extracranial cervical course. Both common and internal carotid arteries are normal in course and caliber.] BRAIN CTA: [There is normal opacification of major intracranial arteries. No focal flow-limiting stenosis nor discrete proximal large artery occlusion. No aneurysm. Timing of the contrast bolus allows assessment of the major dural venous sinuses, which all opacify normally] CT/CT angio head neck IMPRESSION: - There is a 2.7 cm mass within the left posterolateral parapharyngeal soft tissues on image 59 of series 10 that slightly distorts the adjacent oropharynx for which a MRI with and without IV contrast is recommended for further assessment. - No acute intracranial findings. - No acute arterial occlusions and no significant arterial stenoses within the head or neck.
[2022-07-10 11:06] VITALS: BP 138/76; PULSE 76; O2SAT 98
[2022-07-10 11:10] VITALS: BP 116/83; PULSE 83; RESP 17; TEMP 36.6; O2SAT 98; BMI 37.5
--- NOTE | 2022-07-10 11:47 | ECG_ITS ---
Test Reason : DIZZINESS Blood Pressure : / mmHG Vent. Rate : 073 BPM Atrial Rate : 073 BPM P-R Int : 202 ms QRS Dur : 094 ms QT Int : 346 ms P-R-T Axes : 046 044 017 degrees QTc Int : 381 ms Normal sinus rhythm Normal ECG No previous ECGs available Referred By: Que Tatum Electronically Signed By:Randy Franklin
--- NOTE | 2022-07-10 11:48 | ED.DIZZY ---
HPI - Dizziness General Chief Complaint: Dizziness Stated Complaint: Dizzy/tired per EMS Time Seen by Provider: 07/10/22 11:21 Source: patient Mode of arrival: EMS Limitations: no limitations History of Present Illness HPI Narrative: 27 years old patient presented by ambulance with chief complaint of dizziness and diplopia. Denies any chest pain right lower extremity weakness speech problem. He stated he woke up this way this morning MD elicited complaint: dizziness Onset (ago): hour(s) (6) Timing: sudden onset Severity: moderate Description: room spinning Exacerbating factors: nothing Relieving factors: nothing Associated symptoms: denies other symptoms Associated neuro symptoms: diplopia Related Data Home Medications Medication Instructions Recorded Confirmed No Known Home Meds 12/26/21 12/26/21 Allergies Allergy/AdvReac Type Severity Reaction Status Date / Time No Known Allergies Allergy Verified 01/03/22 23:16 [No Known Allergies*] Review of Systems Constitutional: Constitutional: Reports no additional constitutional complaints Eyes: Eyes: Reports as per HPI Cardiovascular: Cardiovascular: Reports no additional cardiovascular complaints Gastrointestinal: Gastrointestinal: Reports no additional gastrointestinal complaints Musculoskeletal: Musculoskeletal: Reports no additional musculoskeletal complaints Neurologic: Reports Abnormal speech present [facility] Past Medical History Medical History No pertinent past medical history Social History Social History Alcohol intake: never Patient Tobacco Use Status: Never used Tobacco Smoked in Last 30 Days: No Use of substances other than those prescribed or required for medical reasons: No Any prior treatment program specific to substance use: No Advance Directives: No Advance Directives Information Provided: No Physical Exam Vital Signs: Vital Signs: Last Vital Signs Temp 98 F 07/10/22 11:10 Pulse 83 07/10/22 11:10 Resp 17 07/10/22 11:10 BP 116/83 07/10/22 11:10 Pulse Ox 98 07/10/22 11:10 O2 Del Method 07/10/22 11:10 BMI result Body Mass Index 37.5 Const: General: cooperative Nutritional Appearance: well nourished Orientation/consciousness: patient oriented x3 Limitations: no limitations HEENT: Head: Yes normal to inspection General nose exam: Normal external nose present Face and sinus: Yes normal facial exam Mouth: Normal oral and palatal mucosa present Teeth and gingiva: dentition normal Neck: Neck: Yes normal visual inspection and Yes full ROM Chest: Chest palpation & inspection: normal inspection of the chest Resp: Effort & Inspection: normal respiratory effort Auscultation: clear to auscultation bilaterally Cardio: Jugular venous distension: no JVD Rate: regular rate Rhythm: regular rhythm GI: Inspection: Yes normal to inspection Palpation (GI): Soft to palpation, not firm, nontender and no guarding Neuro: General: patient oriented x3 Cranial nerves: Yes CN's II-XII intact bilaterally, Yes Facial sensation intact/muscles of mastication intact, Yes Bilaterally intact EOM present and Yes Nystagmus not present Cognition (Neuro): normal cognition Speech: Abnormal speech present Course Reevaluation(s) Reevaluation #1: Patient remained hemodynamically stable, as per since then type diplopia and dizziness, CTA was no diagnostic in the brain but he had a neck mass which probably is unrelated to his dizziness. I discussed the case with neurologist Dr. Puri will admit do an MRI of the brain, I also had an MRI of the neck to better define the mass. I discussed the case with the hospitalist Dr. Orlando. I informed the patient as well about the finding. Time: 15:42 Medications Administered Discontinued Medications Generic Name Dose Route Start Last Admin Trade Name Freq PRN Reason Stop Dose Admin Iohexol 100 ml 07/10/22 13:48 07/10/22 13:48 Iohexol 350 Mg/Ml 100 Ml Infus..Btl IV 07/10/22 13:49 70 ml ONCE ONE Administration Medical Decision Making Medical Decision Making [facility] Narrative: Patient presented with dizziness and diplopia which is improving now will go ahead pleasant IV check CTA head and neck Differential Diagnosis Differential Diagnoses: The differential diagnosis associated with the presentation includes CVA/Brain aneurism Admission/Observation Consideration of admission/observation: Escalation of care including admission/observation considered Consult Healthcare Provider Management of the patient was discussed with: Certified Medical Coding Specialist neurologist Dr Walker Lab Data [facility] Lab Attestation statement: I reviewed the patient's lab results. 07/10/22 12:09 07/10/22 12:09 Labs: Lab Results 07/10/22 07/10/22 07/10/22 Range/Units 12:09 12:09 12:09 WBC 4.6 L (4.8-10.8) X10*3/uL RBC 5.10 (4.60-5.80) X10*6/uL Hgb 14.5 (14.0-18.0) g/dl Hct 42.4 (42.0-52.0) % MCV 83.1 (80.0-98.0) fL MCH 28.4 (27.0-33.0) pg MCHC 34.2 (31.0-36.0) g/dl RDW 12.5 (11.0-16.0) % Plt Count 245 (160-400) X10*3/uL MPV 8.9 L (9.4-12.4) fL Immature Gran % (Auto) 0.2 (0.0-0.4) % Neut % (Auto) 44.2 L (45-73) % Lymph % (Auto) 36.3 (20-40) % [place] % (Auto) 9.3 (2-11) % Eos % (Auto) 9.1 H (0-4) % Baso % (Auto) 0.9 (0-2) % Lymph # (Auto) 1.7 (1.2-4.9) X10*3/uL [place] # (Auto) 0.4 (0.1-1.2) X10*3/uL Eos # (Auto) 0.4 (0.0-0.4) X10*3/uL Baso # (Auto) 0.0 (0.0-0.2) X10*3/uL Abs Immat Gran (auto) 0.01 (0.00-0.03) X10*3/uL Absolute Neuts (auto) 2.0 (2.0-8.3) x10*3/uL Absolute Nucleated RBC 0.000 (0.0-0.012) X10*3/uL Nucleated RBC % (auto) 0.0 (0.0-0.2) /100WBC Sodium 140 (135-145) mmol/L Potassium 4.7 (3.3-5.1) mmol/L Chloride 105 (96-108) mmol/L Carbon Dioxide 27 (22-29) mmol/L Anion Gap 13 (12-20) BUN 11 (9-16) mg/dL Creatinine 1.21 (0.5-1.4) mg/dL Estim Creat Clear Calc 126.9 Estimated GFR > 60 Random Glucose 119 H (60-115) mg/dL Calcium 9.6 (8.4-10.2) mg/dL Total Bilirubin 0.4 (0.0-1.0) mg/dL AST 46 H (5-37) U/L ALT 60 H (0-40) U/L Alkaline Phosphatase 93 (39-117) U/L Troponin I High Sens < 3.5 (<3.5-35.0) ng/L Total Protein 7.0 (6.5-8.0) g/dL Albumin 4.2 (3.5-5.0) g/dL Radiology Impression Discussion of test interpretation with radiology: I discussed test interpretation with the radiologist and I have reviewed the radiologist's reading. Radiologist Impression: anatomic variant. No significant ostial stenosis is visualized on either side. Both vertebral arteries are widely patent throughout their extracranial cervical course. Both common and internal carotid arteries are normal in course and caliber.] BRAIN CTA: [There is normal opacification of major intracranial arteries. No focal flow-limiting stenosis nor discrete proximal large artery occlusion. No aneurysm. Timing of the contrast bolus allows assessment of the major dural venous sinuses, which all opacify normally] CT/CT angio head neck IMPRESSION: - There is a 2.7 cm mass within the left posterolateral parapharyngeal soft tissues on image 59 of series 10 that slightly distorts the adjacent oropharynx for which a MRI with and without IV contrast is recommended for further assessment. ? - No acute intracranial findings. ? - No acute arterial occlusions and no significant arterial stenoses within the head or neck. Dictated By: Ian Dupree MD Signed By: <Electronically signed by Ian Dupree MD in OV> 07/10/22 1418 Chronic Conditions Patient?s care impacted by: Other (schizophrenia) Discharge Plan Discharge Clinical Impression: Dizziness, Diplopia Patient Disposition: Admitted As Inpatient
[2022-07-10 12:23] LABS: MANUAL DIFF FLAG NO
[2022-07-10 12:24] LABS: Basophils Percent Auto 0.9 % (0-2); Eosinophils Absolute Auto 0.4 X10*3/uL (0.0-0.4); Eosinophils Percent Auto 9.1 % (0-4); Hematocrit 42.4 % (42.0-52.0); Hemoglobin 14.5 g/dl (14.0-18.0); Imm Gran Abs Auto 0.01 X10*3/uL (0.00-0.03); Imm Gran Pct Auto 0.2 % (0.0-0.4); Lymphocytes Absolute Auto 1.7 X10*3/uL (1.2-4.9); Lymphocytes Percent Auto 36.3 % (20-40); Mean Corpuscular HGB Conc 34.2 g/dl (31.0-36.0); Mean Corpuscular Hemoglobin 28.4 pg (27.0-33.0); Mean Corpuscular Volume 83.1 fL (80.0-98.0); Mean Platelet Volume 8.9 fL (9.4-12.4); Monocytes Absolute Auto 0.4 X10*3/uL (0.1-1.2); Monocytes Percent Auto 9.3 % (2-11); Neutrophils Percent Auto 44.2 % (45-73); Platelet Count 245 X10*3/uL (160-400); Red Cell Distribution Width 12.5 % (11.0-16.0); White Blood Count 4.6 X10*3/uL (4.8-10.8)
[2022-07-10 12:43] LABS: Alanine Aminotransferase 60 U/L (0-40); Albumin Level 4.2 g/dL (3.5-5.0); Alkaline Phosphatase 93 U/L (39-117); Anion Gap 13 (12-20); Aspartate Amino Transferase 46 U/L (5-37); Bilirubin Total 0.4 mg/dL (0.0-1.0); Blood Urea Nitrogen 11 mg/dL (9-16); Calcium 9.6 mg/dL (8.4-10.2); Carbon Dioxide 27 mmol/L (22-29); Chloride 105 mmol/L (96-108); Creatinine Clr Calc Pharmacy 126.9; Estimated Glomerular Filt Rate > 60; Glucose Random 119 mg/dL (60-115); Potassium 4.7 mmol/L (3.3-5.1); Sodium 140 mmol/L (135-145)
[2022-07-10 12:49] LABS: Troponin-I High Sensitivity < 3.5 ng/L (<3.5-35.0)
[2022-07-10] MEDS: iohexoL 350 MG/ML 100 ML INFUS..BTL IV (13:48)
--- NOTE | 2022-07-10 15:50 | PC.NURSE ---
when pt is ready for d/c call Isauro Melissa @[facility] neal RN,
[2022-07-10 16:19] VITALS: BP 121/84; PULSE 76; RESP 16; O2SAT 97
--- NOTE | 2022-07-10 16:19 | PC.NURSE ---
report recieved from KEYONA Faith pt is resting comfortably on stretcher at this time, reports no pain, ambulating with steady gait to bathroom with no difficulty, awaiting dinner and further orders at this time
--- NOTE | 2022-07-10 17:29 | PC.NURSE ---
pt in MRI at this time
--- NOTE | 2022-07-10 18:20 | PHA.MEDREC ---
MED REC COMPLETE, PATIENT SEEMED UNSURE OF MEDICATIONS AND DOSES, PUT INSTRUCTIONS FROM HOME PHARMACY THE DIRECTIONS Pharmacy Consult ? Medication Reconciliation Pharmacy has completed the medication reconciliation.
--- NOTE | 2022-07-10 18:49 | PC.NURSE ---
pt eating dinner, no apparent distress at this time
[2022-07-10 20:20] LABS: COVID-19 Test Negative (Negative); IDNOW Serial# 16C4AD1C
[2022-07-14 18:48] LABS: Oxcarbazepine 3.5 mcg/mL (8.0-35.0)
== END 2022-07-11 00:04 | disposition home or self-care (01) ==
PROVIDERS: Emergency Medicine; Emergency Provider Emergency Medicine
DX: R42 Dizziness and giddiness (principal); H53.2 Diplopia; R22.1 Localized swelling, mass and lump, neck; Z20.822 Contact with and (suspected) exposure to COVID-19
CPT/HCPCS: 36415; 70496; 70498; 70543; 70551; 80053; 80339; 84484; 85025; 87635; 93005; 96374; 99284; 99285; A9585; Q9967

== ENCOUNTER 2023-05-16 23:45 | Emergency (ER) | payer MEDICAID, OTHER, SELFPAY ==
[2023-05-16 23:48] VITALS: BP 166/96; PULSE 98; RESP 18; TEMP 36.8; O2SAT 96; BMI 36.3
[2023-05-17 00:18] LABS: MANUAL DIFF FLAG NO
[2023-05-17 00:19] LABS: Basophils Absolute Auto 0.1 X10*3/uL (0.0-0.2); Basophils Percent Auto 0.7 % (0-2); Eosinophils Absolute Auto 0.5 X10*3/uL (0.0-0.4); Eosinophils Percent Auto 5.8 % (0-4); Hematocrit 42.5 % (42.0-52.0); Hemoglobin 14.8 g/dl (14.0-18.0); Imm Gran Abs Auto 0.02 X10*3/uL (0.00-0.03); Imm Gran Pct Auto 0.2 % (0.0-0.4); Lymphocytes Absolute Auto 3.8 X10*3/uL (1.2-4.9); Mean Corpuscular HGB Conc 34.8 g/dl (31.0-36.0); Mean Corpuscular Hemoglobin 29.4 pg (27.0-33.0); Mean Corpuscular Volume 84.3 fL (80.0-98.0); Mean Platelet Volume 9.2 fL (9.4-12.4); Monocytes Absolute Auto 0.8 X10*3/uL (0.1-1.2); Monocytes Percent Auto 9.1 % (2-11); Neutrophils Absolute Auto 3.8 x10*3/uL (2.0-8.3); Neutrophils Percent Auto 42.2 % (45-73); Platelet Count 247 X10*3/uL (160-400); Red Blood Count 5.04 X10*6/uL (4.60-5.80); Red Cell Distribution Width 12.2 % (11.0-16.0)
--- NOTE | 2023-05-17 00:29 | ED_ITS ---
HPI - Psych General Chief Complaint: Psychiatric Symptoms Stated Complaint: Request Psych Time Seen by Provider: 05/17/23 00:29 Source: patient Mode of arrival: ambulatory Limitations: no limitations History of Present Illness HPI Narrative: Patient has history of bipolar disorder feeling off for a while denies any SI or HI at this time taking his medications compliant had 2 pints of alcohol today Related Data Home Medications Medication Instructions Recorded Confirmed oxcarbazepine 300 mg tablet 300 mg PO DAILY 07/10/22 07/10/22 oxcarbazepine 300 mg tablet 450 mg PO BEDTIME 07/10/22 07/10/22 quetiapine 50 mg tablet (Seroquel) 50 mg PO BEDTIME 07/10/22 07/10/22 Allergies Allergy/AdvReac Type Severity Reaction Status Date / Time No Known Allergies Allergy Verified 01/03/22 23:16 [No Known Allergies*] Review of Systems 2 Review of Systems: Yes all other systems are reviewed and are negative [facility] Past Medical History Medical History No pertinent past medical history Social History Social History Alcohol intake: never Patient Tobacco Use Status: Never used Tobacco Advance Directives: No Advance Directives Information Provided: No Physical Exam 2 Vital Signs: Vital Signs: Last Vital Signs Temp 98.2 F 05/16/23 23:48 Pulse 98 05/16/23 23:48 Resp 18 05/16/23 23:48 BP 166/96 H 05/16/23 23:48 Pulse Ox 96 05/16/23 23:48 O2 Del Method Room Air 05/16/23 23:48 BMI result Body Mass Index 36.3 Appearance: Alert. Oriented X3. No acute distress. Eyes: PERRLA, No Nystagmus ENT: Pharynx normal. Oral Mucosa moist Neck: Normal inspection. Neck supple. CVS: Normal heart rate and rhythm. Pulses normal. Respiratory: No respiratory distress. Equal air entry bilateral, no wheezing/rales/rhonchi Abdomen: Soft and nontender. Bowel sounds are present, no mass palpable, no CVA tenderness Skin: Skin warm and dry. Normal skin color. Normal skin turgor. Extremities: No lower extremity edema. No calf tenderness psych: Intoxicated no current SI or HI no hallucination or delusion Neuro: Oriented X 3. No motor deficit. No sensory deficit.No cerebellar signs , cranial nerves II-XII intact Medications Administered Discontinued Medications Generic Name Dose Route Start Last Admin Trade Name Lior PRN Reason Stop Dose Admin Hydroxyzine HCl 50 mg 05/17/23 01:03 05/17/23 01:05 Hydroxyzine Hcl 50 Mg Tablet PO 05/17/23 01:04 50 mg ONCE ONE Administration Medical Decision Making Medical Decision Making [facility] Narrative: Patient with bipolar disorder with alcohol intoxication will re-evaluate after patient is over patient may need care team evaluation Lab Data [facility] Lab Attestation statement: I reviewed the patient's lab results. 05/17/23 00:04 05/17/23 00:04 Labs: Lab Results 05/17/23 Range/Units 00:04 WBC 9.0 (4.8-10.8) X10*3/uL RBC 5.04 (4.60-5.80) X10*6/uL Hgb 14.8 (14.0-18.0) g/dl Hct 42.5 (42.0-52.0) % MCV 84.3 (80.0-98.0) fL MCH 29.4 (27.0-33.0) pg MCHC 34.8 (31.0-36.0) g/dl RDW 12.2 (11.0-16.0) % Plt Count 247 (160-400) X10*3/uL MPV 9.2 L (9.4-12.4) fL Immature Gran % (Auto) 0.2 (0.0-0.4) % Neut % (Auto) 42.2 L (45-73) % Lymph % (Auto) 42.0 H (20-40) % [place] % (Auto) 9.1 (2-11) % Eos % (Auto) 5.8 H (0-4) % Baso % (Auto) 0.7 (0-2) % Lymph # (Auto) 3.8 (1.2-4.9) X10*3/uL [place] # (Auto) 0.8 (0.1-1.2) X10*3/uL Eos # (Auto) 0.5 H (0.0-0.4) X10*3/uL Baso # (Auto) 0.1 (0.0-0.2) X10*3/uL Abs Immat Gran (auto) 0.02 (0.00-0.03) X10*3/uL Absolute Neuts (auto) 3.8 (2.0-8.3) x10*3/uL Absolute Nucleated RBC 0.000 (0.0-0.012) X10*3/uL Nucleated RBC % (auto) 0.0 (0.0-0.2) /100WBC Sodium 145 (135-145) mmol/L Potassium 3.5 D (3.3-5.1) mmol/L Chloride 105 (96-108) mmol/L Carbon Dioxide 26 (22-29) mmol/L Anion Gap 18 (12-20) BUN 14 (9-16) mg/dL Creatinine 1.28 (0.5-1.4) mg/dL Estim Creat Clear Calc 116.7 Estimated GFR > 60 Random Glucose 93 (60-115) mg/dL Calcium 9.8 (8.4-10.2) mg/dL Total Bilirubin 0.4 (0.0-1.0) mg/dL AST 87 H (5-37) U/L ALT 103 H (0-40) U/L Alkaline Phosphatase 76 (39-117) U/L Total Protein 8.2 H (6.5-8.0) g/dL Albumin 4.9 (3.5-5.0) g/dL Ethyl Alcohol 335 H* mg/dL COVID-19 ([facility] MARINA) Negative (Negative) COVID-19 Clin Com See Note Discharge Plan Discharge Clinical Impression: Alcohol intoxication Patient Disposition: Still a Patient Prescriptions: No Action quetiapine [Seroquel] 50 mg Tablet 50 mg PO BEDTIME oxcarbazepine 300 mg Tablet 300 mg PO DAILY oxcarbazepine 300 mg Tablet 450 mg PO BEDTIME Interventions: [place]-Suicide Risk Severity Scale Last Done: 05/17/23 00:18
[2023-05-17 00:32] LABS: Alanine Aminotransferase 103 U/L (0-40); Albumin Level 4.9 g/dL (3.5-5.0); Alkaline Phosphatase 76 U/L (39-117); Anion Gap 18 (12-20); Aspartate Amino Transferase 87 U/L (5-37); Bilirubin Total 0.4 mg/dL (0.0-1.0); Blood Urea Nitrogen 14 mg/dL (9-16); Calcium 9.8 mg/dL (8.4-10.2); Carbon Dioxide 26 mmol/L (22-29); Chloride 105 mmol/L (96-108); Creatinine Clr Calc Pharmacy 116.7; Estimated Glomerular Filt Rate > 60; Ethanol 335 mg/dL; Glucose Random 93 mg/dL (60-115); Potassium 3.5 mmol/L (3.3-5.1); Sodium 145 mmol/L (135-145); Total Protein 8.2 g/dL (6.5-8.0)
[2023-05-17 00:37] LABS: COVID-19 Test Negative (Negative); IDNOW Serial# BCCEAD1C
[2023-05-17] MEDS: hydrOXYzine HCL 50 MG TABLET PO (01:05)
--- NOTE | 2023-05-17 01:16 | PC.NURSE ---
patient came and asked t/w questions about his liver if it was healthy, t/w relayed how enzymes were elevated and how etoh can impact this, informed client if he didnt have a pcp we would give him some contacts before he leaves to help him. patient returned to his room.
--- NOTE | 2023-05-17 04:25 | PC.NURSE ---
t/w observed at least three times during the night client seems to yell out loudly in his sleep (like night terrors)
[2023-05-17 10:18] LABS: Appearance Urine Clear; Color Urine Yellow; Glucose Urine UA 100 mg/dL (Negative); Leukocyte Esterase Urine Negative (Negative); Nitrite Urine Negative (Negative); PH 5.5 (5.0-9.0); Specific Gravity - Urine 1.025 (1.005-1.025); Urine Blood Negative (Negative); Urine Ketones Trace mg/dL (Negative); Urine Protein Negative (Neg-Trace)
[2023-05-17 10:23] LABS: Bacteria Urine None Seen (None Seen); Hyaline Casts Urine 0-2 /LPF (0-2); RBC Urine 0-2 /HPF (0-2); Squamous Epithelial Cell Urine 0-2 /HPF (0-2); WBC Urine 0-5 /HPF (0-5)
[2023-05-17 10:25] LABS: Amphetamine Screen Urine Not Detected (Not Detect); Barbiturates, Urine Not Detected (Not Detect); Benzodiazepines Screen Urine Not Detected (Not Detect); Cannabinoid Screen Urine POSITIVE (Not Detect); Cocaine Screen Urine Not Detected (Not Detect); Fentanyl, urine Not Detected (Not Detect); Opiate Screen Urine Not Detected (Not Detect); Phencyclidine Screen Urine Not Detected (Not Detect)
--- NOTE | 2023-05-17 10:34 | PC.NURSE ---
CARE team at bedside to evaluate pt
--- NOTE | 2023-05-17 10:49 | PC.NURSE ---
Addendum entered by Tory Johnson RN 05/17/23 10:52: attempted to call pts pharmacy to determine pts med history, due to the holiday the pharmacy is currently closed Original Note: pt reports he takes home meds and gets them through [facility]. it appears that the last time the pt filled his meds was early july of this year,.
[2023-05-17 13:03] VITALS: BP 144/87; PULSE 82; RESP 16; O2SAT 98
--- NOTE | 2023-05-17 13:17 | MHC.CARE ---
Patient evaluated by the CARE Team, recommendation is for [facility], referral sent to [facility].
--- NOTE | 2023-05-17 15:11 | MHC.CARE ---
Patient accepted to [facility] for admission at 4:00-4:30, CARE Team will arrange transportation via [employer].
--- NOTE | 2023-05-17 15:49 | PC.NURSE ---
pt a&ox4, vss, CIWA 0, plan for [facility] bed, CARE team arranging transport via [employer].
== END 2023-05-17 16:23 ==
PROVIDERS: Emergency Provider Internal Medicine
DX: F10.120 Alcohol abuse with intoxication, uncomplicated (principal); Y90.8 Blood alcohol level of 240 mg/100 ml or more; F31.9 Bipolar disorder, unspecified; Z11.52 Encounter for screening for COVID-19
CPT/HCPCS: 80053; 80307; 81001; 85025; 87635; 99285; S9485

== ENCOUNTER 2023-06-16 23:56 | Emergency (ER) | payer OTHER, SELFPAY ==
[2023-06-16 23:59] VITALS: BP 136/95; PULSE 103; RESP 18; TEMP 36.6; O2SAT 96; BMI 32.8
--- NOTE | 2023-06-17 00:54 | PC.NURSE ---
t/w gave 2 apple juices and warm blanket, patient states current with medications. strong odor or etoh emanates from the client.
[2023-06-17 01:03] LABS: Basophils Absolute Auto 0.1 X10*3/uL (0.0-0.2); Basophils Percent Auto 0.8 % (0-2); Eosinophils Absolute Auto 0.4 X10*3/uL (0.0-0.4); Eosinophils Percent Auto 5.9 % (0-4); Hematocrit 45.2 % (42.0-52.0); Hemoglobin 15.7 g/dl (14.0-18.0); Imm Gran Abs Auto 0.01 X10*3/uL (0.00-0.03); Imm Gran Pct Auto 0.1 % (0.0-0.4); Lymphocytes Absolute Auto 3.8 X10*3/uL (1.2-4.9); Lymphocytes Percent Auto 51.1 % (20-40); MANUAL DIFF FLAG NO; Mean Corpuscular HGB Conc 34.7 g/dl (31.0-36.0); Mean Corpuscular Volume 83.5 fL (80.0-98.0); Mean Platelet Volume 8.7 fL (9.4-12.4); Monocytes Absolute Auto 0.7 X10*3/uL (0.1-1.2); Monocytes Percent Auto 9.3 % (2-11); Neutrophils Absolute Auto 2.4 x10*3/uL (2.0-8.3); Neutrophils Percent Auto 32.8 % (45-73); Platelet Count 311 X10*3/uL (160-400); Red Blood Count 5.41 X10*6/uL (4.60-5.80); Red Cell Distribution Width 12.6 % (11.0-16.0); White Blood Count 7.3 X10*3/uL (4.8-10.8)
[2023-06-17 01:20] LABS: Alanine Aminotransferase 78 U/L (0-40); Alkaline Phosphatase 88 U/L (39-117); Anion Gap 16 (12-20); Aspartate Amino Transferase 69 U/L (5-37); Bilirubin Total 0.5 mg/dL (0.0-1.0); Blood Urea Nitrogen 7 mg/dL (9-16); Calcium 9.5 mg/dL (8.4-10.2); Carbon Dioxide 28 mmol/L (22-29); Chloride 104 mmol/L (96-108); Creatinine Clr Calc Pharmacy 96.1; Estimated Glomerular Filt Rate 56; Ethanol 367 mg/dL; Glucose Random 140 mg/dL (60-115); Potassium 3.7 mmol/L (3.3-5.1); Sodium 144 mmol/L (135-145); Total Protein 8.6 g/dL (6.5-8.0)
--- NOTE | 2023-06-17 01:21 | ED_ITS ---
HPI - General Adult General Chief complaint: Psychiatric Symptoms Stated complaint: depression Time Seen by Provider: 06/17/23 01:08 Source: patient, RN notes reviewed and old records reviewed Mode of arrival: ambulatory History of Present Illness HPI narrative: Significant for bipolar disorder presents for evaluation of ?depression. ? Patient states that he has been depressed for ?a long time. ? When asked him to elaborate he states that he has been depressed since yesterday He denies any inciting incidents leading to worsening depression. He reported to triage that he ?went blind. ? However he was witnessed walking with a steady, even gait. While I was in the room, he was watching TV, picked up the remote and change the volume without any difficulty He does appear to be responding to internal stimuli He was laughing to himself and talking to himself as I entered the room He reports that he has been compliant with his medication Patient was last here about a month ago for alcohol intoxication Related Data Home Medications Medication Instructions Recorded Confirmed aripiprazole 10 mg disintegrating 10 mg PO DAILY 06/17/23 06/17/23 tablet quetiapine 100 mg tablet 100 mg PO BEDTIME 06/17/23 06/17/23 Allergies Allergy/AdvReac Type Severity Reaction Status Date / Time No Known Allergies Allergy Verified 06/16/23 23:58 [No Known Allergies*] Review of Systems 2 Constitutional: Constitutional: Denies chills and Denies fever(s) Cardiovascular: Cardiovascular: Denies chest pain and Denies dyspnea Respiratory: Respiratory: Denies dyspnea Gastrointestinal: Gastrointestinal: Denies abdominal pain and Denies vomiting Psychiatric: Psychiatric: Reports depression PMFSH Past Medical History Medical History No pertinent past medical history Social History Social History Alcohol intake: never Patient Tobacco Use Status: Never used Tobacco Advance Directives: No Advance Directives Information Provided: No Physical Exam ED Vital Signs: Vital Signs - 24 hr 06/16/23 23:59 Temperature 97.8 F Pulse Rate 103 H Respiratory Rate 18 Blood Pressure 136/95 H Pulse Oximetry 96 Oxygen Delivery Method Room Air BMI result Body Mass Index 32.8 Const General: healthy appearing, comfortable, no acute distress, alert and awake Nutritional Appearance: well nourished HENAZ Head: Yes normocephalic and Yes atraumatic Eyes Eyelids: Yes eyelids normal Conjunctivae: conjunctivae normal Sclerae: sclerae normal Corneas: corneas normal Pupils: Equal, round and reactive pupils present EOM: EOMs intact bilaterally Resp Effort & Inspection: normal respiratory effort, able to speak in complete sentences and not labored Skin General skin exam: elasticity normal Neuro Cranial nerves: Yes Equal, round and reactive pupils present and Yes Bilaterally intact EOM present Cognition (Neuro): normal cognition Extrem Other: Moving all extremities well without any obvious deformities Psych Appearance: grossly normal Affect: Animated affect present Attitude: cooperative Thought process: Loose association thought process present Thought content: Depressive thoughts present Insight: Poor insight present (Psych) Judgement: Poor judgement present (Psych) Course Reevaluation(s) Reevaluation #1: Patient workup largely unremarkable with the exception of an alcohol level of 367. Patient can be evaluate the care team once clinically sober Time: 02:00 Reevaluation #2: This patient was re-evaluated by the care team today and was felt to be safe for discharge. There was consideration of the patient going to respite for the patient would prefer to go home. The care team feels this is a safe option and the patient also feels this is a safe option. Apparently the patient has a lot of services at home already. Time: 11:12 Medications Administered Discontinued Medications Generic Name Dose Route Start Last Admin Trade Name Freq PRN Reason Stop Dose Admin Hydroxyzine HCl 50 mg 06/17/23 03:14 06/17/23 03:17 Hydroxyzine Hcl 50 Mg Tablet PO 06/17/23 03:15 50 mg ONCE ONE Administration Medical Decision Making Medical Decision Making [facility] Narrative: 28-year-old male presents for evaluation of depression. He appears to be responding to internal stimuli. The patient does have a history of schizophrenia bipolar disorder. Plan for medical clearance and care team evaluation Differential Diagnosis Differential Diagnoses: The differential diagnosis associated with the presentation includes Schizophrenic Bipolar disorder Polysubstance abuse Hallucinations Depression Suicidal ideation Lab Data [facility] Lab Attestation statement: I reviewed the patient's lab results. Back no leukocytosis or anemia. Normal platelet count. No electrolyte abnormalities. Patient's BUN is just below normal at 7, his creatinine is slightly elevated to 1.48, however his baseline appears to be around 1.3. 06/17/23 00:49 06/17/23 00:49 Labs: Lab Results 06/17/23 06/17/23 Range/Units 00:49 07:37 WBC 7.3 (4.8-10.8) X10*3/uL RBC 5.41 (4.60-5.80) X10*6/uL Hgb 15.7 (14.0-18.0) g/dl Hct 45.2 (42.0-52.0) % MCV 83.5 (80.0-98.0) fL MCH 29.0 (27.0-33.0) pg MCHC 34.7 (31.0-36.0) g/dl RDW 12.6 (11.0-16.0) % Plt Count 311 D (160-400) X10*3/uL MPV 8.7 L (9.4-12.4) fL Immature Gran % (Auto) 0.1 (0.0-0.4) % Neut % (Auto) 32.8 L (45-73) % Lymph % (Auto) 51.1 H (20-40) % [place] % (Auto) 9.3 (2-11) % Eos % (Auto) 5.9 H (0-4) % Baso % (Auto) 0.8 (0-2) % Lymph # (Auto) 3.8 (1.2-4.9) X10*3/uL [place] # (Auto) 0.7 (0.1-1.2) X10*3/uL Eos # (Auto) 0.4 (0.0-0.4) X10*3/uL Baso # (Auto) 0.1 (0.0-0.2) X10*3/uL Abs Immat Gran (auto) 0.01 (0.00-0.03) X10*3/uL Absolute Neuts (auto) 2.4 (2.0-8.3) x10*3/uL Absolute Nucleated RBC 0.000 (0.0-0.012) X10*3/uL Nucleated RBC % (auto) 0.0 (0.0-0.2) /100WBC Sodium 144 (135-145) mmol/L Potassium 3.7 (3.3-5.1) mmol/L Chloride 104 (96-108) mmol/L Carbon Dioxide 28 (22-29) mmol/L Anion Gap 16 (12-20) BUN 7 L (9-16) mg/dL Creatinine 1.48 H (0.5-1.4) mg/dL Estim Creat Clear Calc 96.1 Estimated GFR 56 Random Glucose 140 H (60-115) mg/dL Calcium 9.5 (8.4-10.2) mg/dL Total Bilirubin 0.5 (0.0-1.0) mg/dL AST 69 H (5-37) U/L ALT 78 H (0-40) U/L Alkaline Phosphatase 88 (39-117) U/L Total Protein 8.6 H (6.5-8.0) g/dL Albumin 5.0 (3.5-5.0) g/dL Urine Color Yellow Urine Appearance Clear Urine pH 5.0 (5.0-9.0) Ur Specific [place] 1.025 (1.005-1.025) Urine Protein Negative (Neg-Trace) mg/dL Urine Glucose (UA) Negative (Negative) mg/dL Urine Ketones Trace (Negative) mg/dL Urine Blood Trace H (Negative) Urine Nitrite Negative (Negative) Ur Leukocyte Esterase Negative (Negative) Urine RBC 0-2 (0-2) /HPF Urine WBC 0-5 (0-5) /HPF Ur Squamous Epith Cells 0-2 (0-2) /HPF Urine Bacteria None Seen (None Seen) Hyaline Casts 6-10 (0-2) /LPF Granular Casts Present Urine Opiates Screen Not Detected (Not Detect) Urine Fentanyl Screen Not Detected (Not Detect) Ur Barbiturates Screen Not Detected (Not Detect) Ur Phencyclidine Scrn Not Detected (Not Detect) Ur Amphetamines Screen Not Detected (Not Detect) U Benzodiazepines Scrn Not Detected (Not Detect) Urine Cocaine Screen Not Detected (Not Detect) U Marijuana (THC) Screen POSITIVE H (Not Detect) Ethyl Alcohol 367 H* mg/dL Discharge Plan Discharge Clinical Impression: Depression, Alcohol abuse Patient Disposition: Home, Self-Care Additional Instructions: Please continue all your regular medications and follow up with your regular providers. If at any point you wish to speak somebody confidentially about how you are feeling you can contact the crisis hotline at [phone]. Return to the emergency room if significantly worse. Prescriptions: No Action quetiapine 100 mg tablet 100 mg PO BEDTIME aripiprazole 10 mg tablet,disintegrating 10 mg PO DAILY Interventions: [place]-Suicide Risk Severity Scale Last Done: 06/17/23 00:30
--- NOTE | 2023-06-17 02:46 | PC.NURSE ---
client persevorates on asking for a medication which is incongruous with clients blood etoh level. hes been asked to try an rest and client verbally escalates using profanity, patient appears consistently unhappy with what we provide for his comfort
[2023-06-17] MEDS: hydrOXYzine HCL 50 MG TABLET PO (03:17)
[2023-06-17 07:51] LABS: Appearance Urine Clear; Color Urine Yellow; Glucose Urine UA Negative (Negative); Leukocyte Esterase Urine Negative (Negative); Nitrite Urine Negative (Negative); Specific Gravity - Urine 1.025 (1.005-1.025); UMIC TRIGGER UACC YES; Urine Blood Trace (Negative); Urine Ketones Trace mg/dL (Negative); Urine Protein Negative (Neg-Trace)
[2023-06-17 07:52] LABS: Amphetamine Screen Urine Not Detected (Not Detect); Barbiturates, Urine Not Detected (Not Detect); Benzodiazepines Screen Urine Not Detected (Not Detect); Cannabinoid Screen Urine POSITIVE (Not Detect); Cocaine Screen Urine Not Detected (Not Detect); Fentanyl, urine Not Detected (Not Detect); Opiate Screen Urine Not Detected (Not Detect); Phencyclidine Screen Urine Not Detected (Not Detect)
[2023-06-17 08:09] LABS: Bacteria Urine None Seen (None Seen); Granular Casts Urine Present; RBC Urine 0-2 /HPF (0-2); Squamous Epithelial Cell Urine 0-2 /HPF (0-2); WBC Urine 0-5 /HPF (0-5)
[2023-06-17 11:33] VITALS: RESP 18
--- NOTE | 2023-06-17 11:34 | PC.NURSE ---
Jefe was OOB this morning and is advocating for DC. Pleasant when engaged. CIWA 1. Appetite good. Belongings returned. No behavioral concerns.
--- NOTE | 2023-06-17 16:00 | MHC.CARE ---
Pt seen by CARE team and discharged. Pt referred to [facility] for three day follow up.
== END 2023-06-17 11:35 | disposition home or self-care (01) ==
PROVIDERS: Emergency Medicine Emergency Medical Services; Physician Assistant; Emergency Provider Emergency Medicine
DX: F33.1 Major depressive disorder, recurrent, moderate (principal); F10.10 Alcohol abuse, uncomplicated; Y90.8 Blood alcohol level of 240 mg/100 ml or more; Z79.899 Other long term (current) drug therapy
CPT/HCPCS: 36415; 80053; 80307; 81001; 85025; 99284; S9485

== ENCOUNTER 2023-08-10 21:39 | Inpatient (IN) | payer MEDICAID, OTHER, SELFPAY ==
[2023-08-10 21:44] VITALS: BP 147/87; PULSE 113; RESP 16; TEMP 36.8; O2SAT 96; BMI 33.6
[2023-08-10] MEDS: LORazepam 1 MG TABLET 2 MG PO (22:20)
[2023-08-10 22:34] LABS: Basophils Percent Auto 0.6 % (0-2); Eosinophils Absolute Auto 0.3 X10*3/uL (0.0-0.4); Eosinophils Percent Auto 4.3 % (0-4); Hemoglobin 16.1 g/dl (14.0-18.0); Imm Gran Abs Auto 0.02 X10*3/uL (0.00-0.03); Imm Gran Pct Auto 0.3 % (0.0-0.4); Lymphocytes Absolute Auto 2.7 X10*3/uL (1.2-4.9); MANUAL DIFF FLAG NO; Mean Corpuscular HGB Conc 35.8 g/dl (31.0-36.0); Mean Corpuscular Hemoglobin 29.5 pg (27.0-33.0); Mean Corpuscular Volume 82.4 fL (80.0-98.0); Monocytes Absolute Auto 0.7 X10*3/uL (0.1-1.2); Monocytes Percent Auto 10.3 % (2-11); Neutrophils Absolute Auto 2.7 x10*3/uL (2.0-8.3); Neutrophils Percent Auto 42.5 % (45-73); Platelet Count 248 X10*3/uL (160-400); Red Blood Count 5.46 X10*6/uL (4.60-5.80); Red Cell Distribution Width 13.1 % (11.0-16.0); White Blood Count 6.3 X10*3/uL (4.8-10.8)
--- NOTE | 2023-08-10 22:37 | PC.NURSE ---
states comes in for depression, reports no recent meds, appears obtunded, not given urine as yet, pleasant sometimes gives random outburst type statements 'Im sexually frustrated which seems to indicate some disinhibition.
[2023-08-10 22:46] LABS: COVID-19 Test Negative (Negative); IDNOW Serial# 58CA691E
[2023-08-10 22:49] LABS: Acetaminophen LAB < 3 mcg/mL (<30); Alanine Aminotransferase 89 U/L (0-40); Alkaline Phosphatase 77 U/L (39-117); Anion Gap 17 (12-20); Aspartate Amino Transferase 62 U/L (5-37); Bilirubin Total 0.5 mg/dL (0.0-1.0); Blood Urea Nitrogen 9 mg/dL (9-16); Calcium 9.5 mg/dL (8.4-10.2); Carbon Dioxide 22 mmol/L (22-29); Chloride 108 mmol/L (96-108); Creatinine Clr Calc Pharmacy 97.9; Estimated Glomerular Filt Rate 56; Ethanol 305 mg/dL; Glucose Random 94 mg/dL (60-115); Potassium 3.5 mmol/L (3.3-5.1); Salicylate < 5.0 mg/dL (15-30); Sodium 143 mmol/L (135-145); Total Protein 8.5 g/dL (6.5-8.0)
--- NOTE | 2023-08-10 23:07 | ED.GENADULT ---
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 ? Patient states that he has been experiencing ?erratic behaviors. ? He admits to drinking alcohol today but is unable to state how drink He denies any other substances He states he has not been taking psychiatric medications for last few days He is depressed but not suicidal He denies any somatic complaints Related Data Home Medications Medication Instructions Recorded Confirmed aripiprazole 10 mg disintegrating 10 mg PO DAILY 06/17/23 06/17/23 tablet quetiapine 100 mg tablet 100 mg PO BEDTIME 06/17/23 06/17/23 Allergies Allergy/AdvReac Type Severity Reaction Status Date / Time No Known Allergies Allergy Verified 08/10/23 21:47 [No Known Allergies*] Review of Systems Constitutional: Constitutional: Denies body ache(s), Denies chills and Denies fever(s) Eyes: Eyes: Denies blurry vision ENT: Denies sore throat Cardiovascular: Cardiovascular: Denies chest pain and Denies dyspnea Respiratory: Respiratory: Denies cough and Denies dyspnea Gastrointestinal: Gastrointestinal: Denies abdominal pain, Denies nausea and Denies vomiting Musculoskeletal: Musculoskeletal: Denies back pain Integumentary/Breasts: Skin/Breast: Denies rash Psychiatric: Psychiatric: Denies anxiety, Reports depression, Denies panic attacks and Denies suicidal ideation [facility] Past Medical History Medical History No pertinent past medical history Social History Social History Alcohol intake: never Patient Tobacco Use Status: Never used Tobacco Advance Directives: No Advance Directives Information Provided: No Physical Exam ED Vital Signs: Vital Signs - 24 hr 08/10/23 21:44 Temperature 98.2 F Pulse Rate 113 H Respiratory Rate 16 Blood Pressure 147/87 H Pulse Oximetry 96 Oxygen Delivery Method Room Air BMI result Body Mass Index 33.6 Const General: healthy appearing, comfortable, no acute distress, alert and awake Nutritional Appearance: well nourished Orientation/consciousness: patient oriented x3 HENMT Head: Yes normocephalic and Yes atraumatic Eyes Eyelids: Yes eyelids normal Conjunctivae: conjunctivae normal Sclerae: sclerae normal Corneas: corneas normal Pupils: Equal, round and reactive pupils present EOM: EOMs intact bilaterally Neck Neck: Yes full ROM Resp Effort & Inspection: normal respiratory effort, able to speak in complete sentences and not labored Cardio Rate: regular rate Rhythm: regular rhythm GI Inspection: No distended Palpation (GI): Soft to palpation, not firm, nontender, no guarding and not rigid Skin General skin exam: elasticity normal Neuro General: patient oriented x3 Cranial nerves: Yes Equal, round and reactive pupils present and Yes Bilaterally intact EOM present Cognition (Neuro): normal cognition Extrem Other: Moving all extremities well without any obvious deformities Course Reevaluation(s) Reevaluation #1: Patient is medically cleared for evaluation Time: 01:29 Medications Administered Discontinued Medications Generic Name Dose Route Start Last Admin Trade Name Freq PRN Reason Stop Dose Admin Lorazepam 2 mg 08/10/23 22:03 08/10/23 22:20 Lorazepam 1 Mg Tablet PO 08/10/23 22:04 2 mg ONCE ONE Administration Medical Decision Making Medical Decision Making [facility] Narrative: 28-year-old male with history of psychiatric illness and substance abuse presents for evaluation of depression and substance abuse. Plan for medical clearance and likely care team evaluation once sober Differential Diagnosis Differential Diagnoses: The differential diagnosis associated with the presentation includes Alcohol abuse Depression Polysubstance abuse Schizophrenia Bipolar disorder Lab Data [facility] Lab Attestation statement: I reviewed the patient's lab results. No leukocytosis, no anemia normal platelet count. Patient has no electrolyte abnormalities. Creatinine is elevated to 1.47 which is consistent with his most recent labs from June 172023. Mild transaminitis consistent with baseline, again this is likely related to alcohol abuse 08/10/23 22:27 08/10/23 22:27 Labs: Lab Results 08/10/23 08/10/23 Range/Units 22:27 23:50 WBC 6.3 (4.8-10.8) X10*3/uL RBC 5.46 (4.60-5.80) X10*6/uL Hgb 16.1 (14.0-18.0) g/dl Hct 45.0 (42.0-52.0) % MCV 82.4 (80.0-98.0) fL MCH 29.5 (27.0-33.0) pg MCHC 35.8 (31.0-36.0) g/dl RDW 13.1 (11.0-16.0) % Plt Count 248 (160-400) X10*3/uL MPV 9.0 L (9.4-12.4) fL Immature Gran % (Auto) 0.3 (0.0-0.4) % Neut % (Auto) 42.5 L (45-73) % Lymph % (Auto) 42.0 H (20-40) % Mclean % (Auto) 10.3 (2-11) % Eos % (Auto) 4.3 H (0-4) % Baso % (Auto) 0.6 (0-2) % Lymph # (Auto) 2.7 (1.2-4.9) X10*3/uL Mclean # (Auto) 0.7 (0.1-1.2) X10*3/uL Eos # (Auto) 0.3 (0.0-0.4) X10*3/uL Baso # (Auto) 0.0 (0.0-0.2) X10*3/uL Abs Immat Gran (auto) 0.02 (0.00-0.03) X10*3/uL Absolute Neuts (auto) 2.7 (2.0-8.3) x10*3/uL Absolute Nucleated RBC 0.000 (0.0-0.012) X10*3/uL Nucleated RBC % (auto) 0.0 (0.0-0.2) /100WBC Sodium 143 (135-145) mmol/L Potassium 3.5 (3.3-5.1) mmol/L Chloride 108 (96-108) mmol/L Carbon Dioxide 22 (22-29) mmol/L Anion Gap 17 (12-20) BUN 9 (9-16) mg/dL Creatinine 1.47 H (0.5-1.4) mg/dL Estim Creat Clear Calc 97.9 Estimated GFR 56 Random Glucose 94 (60-115) mg/dL Calcium 9.5 (8.4-10.2) mg/dL Total Bilirubin 0.5 (0.0-1.0) mg/dL AST 62 H (5-37) U/L ALT 89 H (0-40) U/L Alkaline Phosphatase 77 (39-117) U/L Total Protein 8.5 H (6.5-8.0) g/dL Albumin 5.0 (3.5-5.0) g/dL Urine Color Yellow Urine Appearance Clear Urine pH 5.0 (5.0-9.0) Ur Specific [place] 1.015 (1.005-1.025) Urine Protein Trace (Neg-Trace) mg/dL Urine Glucose (UA) Negative (Negative) mg/dL Urine Ketones Negative (Negative) mg/dL Urine Blood Trace H (Negative) Urine Nitrite Negative (Negative) Ur Leukocyte Esterase Negative (Negative) Urine RBC 0-2 (0-2) /HPF Urine WBC 0-5 (0-5) /HPF Ur Squamous Epith Cells 0-2 (0-2) /HPF Urine Bacteria None Seen (None Seen) Hyaline Casts >20 (0-2) /LPF Salicylates < 5.0 L (15-30) mg/dL Urine Opiates Screen Not Detected (Not Detect) Urine Fentanyl Screen Not Detected (Not Detect) Acetaminophen < 3 (<30) mcg/mL Ur Barbiturates Screen Not Detected (Not Detect) Ur Phencyclidine Scrn Not Detected (Not Detect) Ur Amphetamines Screen Not Detected (Not Detect) U Benzodiazepines Scrn Not Detected (Not Detect) Urine Cocaine Screen Not Detected (Not Detect) U Marijuana (THC) Screen POSITIVE H (Not Detect) Ethyl Alcohol 305 H* mg/dL COVID-19 (LUZ MARINA) Negative (Negative) COVID-19 Clin Com Discharge Plan Discharge Clinical Impression: Alcohol abuse, Chronic schizophrenia Patient Disposition: Still a Patient Prescriptions: No Action quetiapine 100 mg tablet 100 mg PO BEDTIME aripiprazole 10 mg tablet,disintegrating 10 mg PO DAILY Interventions: [place]-Suicide Risk Severity Scale Last Done: 08/10/23 23:56
[2023-08-11 00:06] LABS: Appearance Urine Clear; Color Urine Yellow; Glucose Urine UA Negative (Negative); Leukocyte Esterase Urine Negative (Negative); Nitrite Urine Negative (Negative); Specific Gravity - Urine 1.015 (1.005-1.025); UMIC TRIGGER UA YES; Urine Blood Trace (Negative); Urine Ketones Negative (Negative); Urine Protein Trace mg/dL (Neg-Trace)
--- NOTE | 2023-08-11 00:10 | PC.NURSE ---
patient had been periodically (about q five minutes) coming out to nurses station and engaging staff, staff was redirecting client to go back to rest in bed, client was confrontational and seemingly getting upset because he could not demand the attention/response of staff when he wanted.
[2023-08-11 00:11] LABS: Amphetamine Screen Urine Not Detected (Not Detect); Barbiturates, Urine Not Detected (Not Detect); Benzodiazepines Screen Urine Not Detected (Not Detect); Cannabinoid Screen Urine POSITIVE (Not Detect); Cocaine Screen Urine Not Detected (Not Detect); Fentanyl, urine Not Detected (Not Detect); Opiate Screen Urine Not Detected (Not Detect); Phencyclidine Screen Urine Not Detected (Not Detect)
[2023-08-11 00:18] LABS: Bacteria Urine None Seen (None Seen); Hyaline Casts Urine >20 /LPF (0-2); RBC Urine 0-2 /HPF (0-2); Squamous Epithelial Cell Urine 0-2 /HPF (0-2); WBC Urine 0-5 /HPF (0-5)
[2023-08-11 06:37] VITALS: RESP 16
--- NOTE | 2023-08-11 07:18 | PC.NURSE ---
Assumed care of patient at 0645, patient appears to be sleeping, respirations even and unlabored, no apparent distress noted. Continue plan of care for CARE team marisa
--- NOTE | 2023-08-11 11:34 | PC.NURSE ---
RE; med rec this RN completed med rec with patient and patient's visiting nurse who gives him his medications. Only on two meds
[2023-08-11 17:31] VITALS: BP 145/86; PULSE 72; RESP 18; TEMP 36.8; O2SAT 99
--- NOTE | 2023-08-11 19:18 | PC.NURSE ---
aptient appears to remain at rest at present respirations are even and unlabored patient appears in no distress
--- NOTE | 2023-08-11 20:23 | PHA.MEDREC ---
Pharmacy Consult ? Medication Reconciliation Pharmacy has reviewed the medication reconciliation completed by Tammy.
[2023-08-11] MEDS: hydrOXYzine HCL 25 MG TABLET PO (22:18)
--- NOTE | 2023-08-12 | ECG_ITS ---
Test Reason : check qt Blood Pressure : / mmHG Vent. Rate : 060 BPM Atrial Rate : 060 BPM P-R Int : 184 ms QRS Dur : 094 ms QT Int : 380 ms P-R-T Axes : 063 059 019 degrees QTc Int : 380 ms Normal sinus rhythm Normal ECG When compared with ECG of 10-JUL-2022 11:58, No significant change was found Referred By: Kody Roman Electronically Signed By:DEYANIRA BOSWELL
[2023-08-12 08:18] VITALS: BP 144/82; PULSE 71; RESP 16; TEMP 36.6; O2SAT 100
[2023-08-12] MEDS: OLANZapine 2.5 MG TABLET PO (10:09)
[2023-08-12 14:26] VITALS: BP 137/84; PULSE 70; RESP 16; TEMP 36.8; O2SAT 99
[2023-08-12] MEDS: Gabapentin 300 MG CAPSULE PO ×2 (17:03→21:52)
[2023-08-12 18:00] VITALS: BP 134/79; PULSE 64; TEMP 36.9; O2SAT 99
[2023-08-12 21:25] VITALS: BP 129/86; PULSE 59; TEMP 36.4
[2023-08-12] MEDS: hydrOXYzine HCL 25 MG TABLET PO (21:53)
--- NOTE | 2023-08-13 01:42 | PC.ADMIT ---
A single, Estonian-speaking, -Kazakh, male, aged 28 years was [facility] CV at 1445 following referral from [facility]. Pt is not known to [facility], but reports previous [place] in the area. Pt presented to [facility] on 08/10/23 complaining of not feeling well . Pt had BAL 0f 303 upon arrival at 2227. Pt reported increase in self isolating and depressive symptoms over past few weeks. Pt vaguely alluded to hearing voices but offered little else. Pt presents as guarded and paranoid; pt appears internally preoccupied. During admission assessment, pt c/o anxiety and depression of 6/10. Pt denies SI/HI and says can ask staff for help. Pt denies AVH and pain. Pt reports he has no medical issues at this time. Pt reports poor sleep with insomnia and frequent awakening if sleeps without medication. Pt denies having trauma history. Pt reports decreased appetite with weight loss of 30lbs over 4 month period. CIWA ordered and pt scored 4 and 4 on evening shift. Pt is open to medication management. Pt has medication provider through [facility]. Pt says does not want referral to a therapist. Pt is unsure if has a PCP at this time. Pt signed a 3-day notice during admission; it is up on Wednesday08/17/23. UTOX was positive for THC only, pt denies use of marijuana. Pt reports is a non-smoker. Pt declined flu shot. Pt was cooperative with admission, was quiet and often had poor eye contact with this inspector automatic typewriter during admission. [id number] done, admission orders obtained. Intitail treatment plan and safety tool done, but pt needs to sign. Pt is resting in room on 15 minute safety checks at this time.
[2023-08-13 06:25] VITALS: BP 131/81; PULSE 68; RESP 16; TEMP 36.6; O2SAT 98
[2023-08-13 08:33] LABS: Alanine Aminotransferase 54 U/L (0-40); Albumin Level 4.2 g/dL (3.5-5.0); Alkaline Phosphatase 64 U/L (39-117); Anion Gap 10 (12-20); Aspartate Amino Transferase 28 U/L (5-37); Bilirubin Total 0.6 mg/dL (0.0-1.0); Blood Urea Nitrogen 12 mg/dL (9-16); Calcium 9.8 mg/dL (8.4-10.2); Carbon Dioxide 32 mmol/L (22-29); Chloride 102 mmol/L (96-108); Cholesterol 226 mg/dL (<200); Creatinine Clr Calc Pharmacy 113.3; Estimated Glomerular Filt Rate > 60; Glucose Fasting 113 mg/dL (60-99); HDL Cholesterol 54 mg/dL (>40); LDL Cholesterol Calculated 149 mg/dL (<100); Potassium 4.3 mmol/L (3.3-5.1); Sodium 140 mmol/L (135-145); Total Protein 7.1 g/dL (6.5-8.0); Triglycerides 117 mg/dL (<150)
[2023-08-13 08:39] LABS: Estimated Average Glucose 108 mg/dL; Hemoglobin A1c % 5.4 % (<6.0)
--- NOTE | 2023-08-13 08:40 | HO.PSYADMNOT ---
HPI Date of Service: 08/13/23 Chief Complaint: depressed/disorganized Sources of Information: patient interviewed, chart reviewed and crisis/core team assessment reviewed HPI Subjective Notes: [place] Warning and Conditional Voluntary Narrative: Patient is a 28-year-old male with history auditory hallucinations, alcohol use disorder, anxiety/depression who presents for worsening depression and the face of continued alcoholism and minimal medication treatment. Patient reports that he has been feeling like he has had trouble feeling well over the past weeks. Patient said that he is gotten frustrated with himself for doing dumb things like talking out loud. Patient is vague on details but says he is in a cycle of feeling depressed for few days then feeling hyper for few days; he also says he is in a pattern of drinking alcohol heavily for about 4 days in a row and then is sober for 4 days in a row. Patient reports much anxiety but only mild depression. He says he used to struggle with auditory hallucinations a year ago but has not since and does not now. Crisis report says patient caused considerable damage in his apartment recently. On inquiry patient said that he woke up out of a nightmare and punched a wall; he said another time he fell through a wall. Another time he was looking in the mirror, angry at himself and punched the mirror. Discussed history of manic type episodes but difficult to discern adequate details and he seems to say only last for about 2 days. Regarding medication management, patient says the Zyprexa 2.5 mg is helpful and he does not want to increase the dose. Patient was started on gabapentin for alcohol withdrawal which he says has been very calming for him and he would like to continue on this. Regarding alcohol abuse, reports he has been drinking for the past year; prior to this admission, he reports he was sober for 4 days and only drank for the past 2 days; denies any withdrawal symptoms; denies any history of withdrawal seizures. 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 He smokes cannabis once a month but denies all other drug use Trauma History: Denies Diagnostics Vital Signs (24Hr): Vital Signs - 24 hr 08/12/23 14:26 08/12/23 18:00 08/12/23 21:25 Temperature 98.3 F 98.4 F 97.5 F Pulse Rate 70 64 59 Respiratory Rate 16 Blood Pressure 137/84 134/79 129/86 Pulse Oximetry 99 99 Oxygen Delivery Method Room Air Room Air BMI result Body Mass Index 33.6 Labs 08/10/23 22:27 08/13/23 08:06 Labs: Laboratory Results - last 48 hr 08/13/23 08:06 Sodium 140 Potassium 4.3 D Chloride 102 Carbon Dioxide 32 H Anion Gap 10 L BUN 12 Creatinine 1.27 Estim Creat Clear Calc 113.3 Estimated GFR > 60 Fasting Glucose 113 H Estimat Average Glucose 108 Hemoglobin A1c % 5.4 Calcium 9.8 Total Bilirubin 0.6 AST 28 ALT 54 H Alkaline Phosphatase 64 Total Protein 7.1 Albumin 4.2 Triglycerides 117 Cholesterol 226 H LDL Cholesterol, Calc 149 H HDL Cholesterol 54 Meds/Allergies Meds Home Medications Medication Instructions Recorded Confirmed Type hydroxyzine HCl 25 mg tablet 25 mg PO QID PRN Anxiety 08/11/23 08/11/23 History olanzapine 2.5 mg tablet 2.5 mg PO DAILY 08/11/23 08/11/23 History Allergies Allergies Allergy/AdvReac Type Severity Reaction Status Date / Time No Known Allergies Allergy Verified 08/10/23 21:47 [No Known Allergies*] Mental Status Exam Mental Status Exam Narrative: Pt is alert and oriented; behavior is cooperative, calm, guarded but also friendly on approach; patient is not in distress; dressed in hospital attire with adequate hygiene; mood is described as okay though affect blunted; eye contact appropriate; Speech is soft, low deep voice, normal prosody and not pressured; psychomotor retardation present; thought process is organized and goal directed; Thought content is on feeling lonely, struggling with achieving goals; denies any paranoid ideations and none expressed; denies any SI/HI. Denies AVH though does seem to be a little bit internally preoccupied Patients insight and judgment impaired Assessment & Plan Assessment & Plan (1) Schizoaffective disorder, bipolar type: Status: Acute Code(s): F25.0 - Schizoaffective disorder, bipolar type (2) Alcohol abuse: Status: Acute Code(s): F10.10 - Alcohol abuse, uncomplicated Plan Patient is a 28-year-old male with history auditory hallucinations, alcohol use disorder, anxiety/depression who presents for worsening depression and the face of continued alcoholism and minimal medication treatment. Patient reports that he has been feeling like he has had trouble feeling well over the past weeks. Patient said that he is gotten frustrated with himself for doing dumb things like talking out loud. Patient is vague on details but says he is in a cycle of feeling depressed for few days then feeling hyper for few days; he also says he is in a pattern of drinking alcohol heavily for about 4 days in a row and then is sober for 4 days in a row. Patient reports much anxiety but only mild depression. He says he used to struggle with auditory hallucinations a year ago but has not since and does not now. Crisis report says patient caused considerable damage in his apartment recently. On inquiry patient said that he woke up out of a nightmare and punched a wall; he said another time he fell through a wall. Another time he was looking in the mirror, angry at himself and punched the mirror. Discussed history of manic type episodes but difficult to discern adequate details and he seems to say only last for about 2 days. Regarding medication management, patient says the Zyprexa 2.5 mg is helpful and he does not want to increase the dose. Patient was started on gabapentin for alcohol withdrawal which he says has been very calming for him and he would like to continue on this. Regarding alcohol abuse, reports he has been drinking for the past year; prior to this admission, he reports he was sober for 4 days and only drank for the past 2 days; denies any withdrawal symptoms; denies any history of withdrawal seizures. He smokes cannabis once a month but denies all other drug use. Impression: Patient is very vague about symptoms. Although patient is a limited historian, vague on details, Crisis report indicates he has a history of schizoaffective disorder; Long history of alcohol abuse and significant, recent damage to his apartment. It is possible he is now facing eviction. Given patient's reported history and complete loss of contact with all family members, it is unlikely that he has escaped traumatic experiences and probably has some amount of PTSD. At this time he is not willing to increase current antipsychotic medication. No symptoms withdrawal, not scoring on CIWA and reportedly only drinking for the past 2 days. Will however leave on gabapentin since it seems to help with anxiety and can help with alcohol cravings. Plan: CV Q 15 minute checks Continue Zyprexa 2.5 mg daily Continue gabapentin 300 mg t.i.d. DC CIWA Gather collateral Patient educated on: diagnosis, medication risk/benefits, substance abuse and therapeutic strategies Informed Consent: understands, does not understand and further education needed Reason for continued inpatient stay Substantial Risk for: rapid decompensation Statement Statement: I have reviewed the history and physical and performed a pertinent examination on my patient. No changes have occurred unless specified. If the History and Physical was not performed prior to admission, the Hospitalist's service will be consulted for completing the admission physical. Time Spent With Patient Time: Total time managing care of this patient today ____ minutes.
[2023-08-13] MEDS: OLANZapine 2.5 MG TABLET PO (09:03)
[2023-08-13] MEDS: Folic Acid 1 MG TABLET PO (09:03)
[2023-08-13] MEDS: Thiamine HCL 100 MG TABLET PO (09:03)
[2023-08-13] MEDS: Multivitamin TABLET 1 TAB PO (09:04)
[2023-08-13] MEDS: Gabapentin 300 MG CAPSULE PO ×3 (09:04→20:38)
--- NOTE | 2023-08-13 09:30 | MHC.CLN ---
NUTRITION CONSULT FOR REPORTED 30# WEIGHT LOSS X 4 MONTHS. REVIEWED EMR. SHOWS WEIGHT WITH 6# GAIN X ONE MONTH. WEIGHT LOSS X 3 MONTHS=-20#, -7.2%. WEIGHT LOSS NOT SIGNIFICANT. PATIENT WITH ETOH ABUSE AND SCHIZOPHRENIA LIKELY CONTRIBUTING TO DECREASED INTAKE AND WEIGHT LOSS. NO ADDITIONAL NUTRITION INTERVENTIONS AT THIS TIME. PLEASE CONSULT RD IF CONCERNS WITH PO INTAKE.
[2023-08-13 19:40] VITALS: BP 128/72; PULSE 84; RESP 18; TEMP 36.6; O2SAT 97
[2023-08-13] MEDS: hydrOXYzine HCL 25 MG TABLET PO (20:38)
[2023-08-13] MEDS: traZODone HCL 50 MG TABLET PO (22:05)
[2023-08-14] MEDS: traZODone HCL 50 MG TABLET PO ×2 (02:12→22:51)
[2023-08-14] MEDS: hydrOXYzine HCL 25 MG TABLET PO ×2 (02:12→22:51)
[2023-08-14 06:00] VITALS: BP 128/72; PULSE 91; RESP 18; TEMP 36.9; O2SAT 98
[2023-08-14] MEDS: Folic Acid 1 MG TABLET PO (08:18)
[2023-08-14] MEDS: Multivitamin TABLET 1 TAB PO (08:19)
[2023-08-14] MEDS: OLANZapine 2.5 MG TABLET PO (08:19)
[2023-08-14] MEDS: Gabapentin 300 MG CAPSULE PO ×3 (08:19→22:51)
[2023-08-14] MEDS: Thiamine HCL 100 MG TABLET PO (08:19)
--- NOTE | 2023-08-14 09:45 | P.PNPSI_ITS ---
Subjective Subjective Date of Service: 08/14/23 Reason For Visit: depressed/disorganized Interim History: Patient reportedly doing well. No behavioral outbursts. No anger. Mostly withdrawn and isolative to his room. He says depression is way better. Denies SI. Guarded on presentation. Review of Systems Constitutional: Denies body ache(s), Denies chills and Denies fever(s) Eyes: Denies blurry vision Denies sore throat Cardiovascular: Denies chest pain and Denies dyspnea Respiratory: Denies cough and Denies dyspnea Gastrointestinal: Denies abdominal pain, Denies nausea and Denies vomiting Musculoskeletal: Denies back pain Skin/Breast: Denies rash Psychiatric: Denies anxiety, Reports depression, Denies panic attacks and Denies suicidal ideation Mental Status Exam Mental Status Exam Narrative: Pt is alert and oriented; behavior is cooperative, calm, guarded but also friendly on approach; patient is not in distress; dressed in hospital attire with adequate hygiene; mood is described as okay though affect blunted; eye contact appropriate; Speech is soft, low deep voice, normal prosody and not pressured; psychomotor retardation present; thought process is organized and goal directed; Thought content is on feeling lonely, struggling with achieving goals; denies any paranoid ideations and none expressed; denies any SI/HI. Denies AVH though does seem to be a little bit internally preoccupied Patients insight and judgment impaired Diagnostics Vital Signs (24Hr): Vital Signs - 24 hr 08/13/23 19:40 08/14/23 06:00 Temperature 97.8 F 98.4 F Pulse Rate 84 91 Respiratory Rate 18 18 Blood Pressure 128/72 128/72 Pulse Oximetry 97 98 Oxygen Delivery Method Room Air Room Air BMI result Body Mass Index 33.6 Labs 08/10/23 22:27 08/13/23 08:06 Labs: Laboratory Results - last 48 hr 08/13/23 08:06 Sodium 140 Potassium 4.3 D Chloride 102 Carbon Dioxide 32 H Anion Gap 10 L BUN 12 Creatinine 1.27 Estim Creat Clear Calc 113.3 Estimated GFR > 60 Fasting Glucose 113 H Estimat Average Glucose 108 Hemoglobin A1c % 5.4 Calcium 9.8 Total Bilirubin 0.6 AST 28 ALT 54 H Alkaline Phosphatase 64 Total Protein 7.1 Albumin 4.2 Triglycerides 117 Cholesterol 226 H LDL Cholesterol, Calc 149 H HDL Cholesterol 54 Medications Medications Current Medications Acetaminophen (Acetaminophen 325 Mg Tablet) 650 mg PO Q6H PRN PRN Reason: Headache/Pain Mild Scale (1-3) Al Hydroxide/Mg Hydroxide (Magnesium Hydrox/Alum Hydrox 30 Ml Oral.Susp) 30 ml PO Q6H PRN PRN Reason: Heartburn/Nausea Folic Acid (Folic Acid 1 Mg Tablet) 1 mg PO DAILY [facility] Last Admin: 08/14/23 08:18 Dose: 1 mg Gabapentin (Gabapentin 300 Mg Capsule) 300 mg PO TID [facility] Last Admin: 08/14/23 08:19 Dose: 300 mg Hydroxyzine HCl (Hydroxyzine Hcl 25 Mg Tablet) 25 mg PO Q6H PRN PRN Reason: Anxiety Last Admin: 08/14/23 02:12 Dose: 25 mg Magnesium Hydroxide (Milk Of Magnesia 30 Ml Oral.Susp) 30 ml PO DAILY PRN PRN Reason: Constipation Multivitamins/Vitamin C (Multivitamin Tablet) 1 tab PO DAILY [facility] Last Admin: 08/14/23 08:19 Dose: 1 tab Nicotine (Nicotine 21 Mg Patch.Td24) 21 mg TRANSDERMA DAILY PRN PRN Reason: smoking cessation Nicotine Polacrilex (Nicotine Polacrilex 2 Mg Gum) 4 mg BUCCAL Q2H PRN PRN Reason: Nicotine Cravings Olanzapine (Olanzapine 2.5 Mg Tablet) 2.5 mg PO DAILY [facility] Last Admin: 08/14/23 08:19 Dose: 2.5 mg Olanzapine (Olanzapine 5 Mg Tablet) 5 mg PO TID PRN PRN Reason: agitation Thiamine HCl (Thiamine Hcl 100 Mg Tablet) 100 mg PO DAILY [facility] Last Admin: 08/14/23 08:19 Dose: 100 mg Trazodone HCl (Trazodone Hcl 50 Mg Tablet) 50 mg PO BEDTIME MRX1 PRN PRN Reason: Insomnia Last Admin: 08/14/23 02:12 Dose: 50 mg Allergies Allergies Allergy/AdvReac Type Severity Reaction Status Date / Time No Known Allergies Allergy Verified 08/10/23 21:47 [No Known Allergies*] Assessment & Plan Assessment & Plan (1) Schizoaffective disorder, bipolar type: Status: Acute Code(s): F25.0 - Schizoaffective disorder, bipolar type (2) Alcohol abuse: Status: Acute Code(s): F10.10 - Alcohol abuse, uncomplicated Plan Patient is a 28-year-old male with history auditory hallucinations, alcohol use disorder, anxiety/depression who presents for worsening depression and the face of continued alcoholism and minimal medication treatment. Patient reports that he has been feeling like he has had trouble feeling well over the past weeks. Patient said that he is gotten frustrated with himself for doing dumb things like talking out loud. Patient is vague on details but says he is in a cycle of feeling depressed for few days then feeling hyper for few days; he also says he is in a pattern of drinking alcohol heavily for about 4 days in a row and then is sober for 4 days in a row. Patient reports much anxiety but only mild depression. He says he used to struggle with auditory hallucinations a year ago but has not since and does not now. Crisis report says patient caused considerable damage in his apartment recently. On inquiry patient said that he woke up out of a nightmare and punched a wall; he said another time he fell through a wall. Another time he was looking in the mirror, angry at himself and punched the mirror. Discussed history of manic type episodes but difficult to discern adequate details and he seems to say only last for about 2 days. Regarding medication management, patient says the Zyprexa 2.5 mg is helpful and he does not want to increase the dose. Patient was started on gabapentin for alcohol withdrawal which he says has been very calming for him and he would like to continue on this. Regarding alcohol abuse, reports he has been drinking for the past year; prior to this admission, he reports he was sober for 4 days and only drank for the past 2 days; denies any withdrawal symptoms; denies any history of withdrawal seizures. He smokes cannabis once a month but denies all other drug use. Impression: Patient is very vague about symptoms. Although patient is a limited historian, vague on details, Crisis report indicates he has a history of schizoaffective disorder; Long history of alcohol abuse and significant, recent damage to his apartment. It is possible he is now facing eviction. Given patient's reported history and complete loss of contact with all family members, it is unlikely that he has escaped traumatic experiences and probably has some amount of PTSD. At this time he is not willing to increase current antipsychotic medication. No symptoms withdrawal, not scoring on CIWA and reportedly only drinking for the past 2 days. Will however leave on gabapentin since it seems to help with anxiety and can help with alcohol cravings. Plan: CV Q 15 minute checks Continue Zyprexa 2.5 mg daily Continue gabapentin 300 mg t.i.d. [facility] Gather collateral 08/13: continue current management and treatment plan. Reason for continued inpatient stay Substantial Risk for: harm to self and inability to function Time Spent With Patient Time: Total time managing care of this patient today ____ minutes.
--- NOTE | 2023-08-14 17:08 | MHC.RECOVRN ---
AUDIT-C Brief Intervention Pt had positive screen for unhealthy alcohol use on admission, subsequently met with t/w to discuss alcohol use and recovery supports/options. Pt voices concern regarding alcohol use and is aware that drinking at unhealthy levels is known to increase risk of alcohol related health problems. Pt reports that his amount of alcohol has increased lately and does not wish for this to continue. He would like to cut down. Pt expresses how alcohol use has impacted health, including negative impact on Mental Health Discussed risk reduction strategies including drinking below the recommended limit. Provided pt with written resources including information on inpatient and outpatient treatment, [facility], harm reduction, and recovery coaching. Pt plans to practice harm reduction to decrease his overall alcohol intake. Pt provided with t/w contact information if questions or concerns arise. Denies other questions or concerns at this time.
[2023-08-14 18:00] VITALS: BP 133/84; PULSE 88; RESP 16; TEMP 36.6; O2SAT 99
[2023-08-15] MEDS: traZODone HCL 50 MG TABLET PO ×2 (03:41→22:01)
[2023-08-15 07:57] VITALS: BP 137/73; PULSE 77; RESP 16; TEMP 37.1; O2SAT 94
--- NOTE | 2023-08-15 09:01 | HO.PSYCHPN ---
Subjective Subjective Date of Service: 08/15/23 Reason For Visit: depressed/disorganized Interim History: Patient reported vivid dreams last night. Said he thinks it's due to the Trazodone which he has had in the past. He says he used to take Seroquel. Explained Zyprexa and Olanzapine are same class and switch rather than adding Seroquel would be the appropriate approach. No behavioral outbursts. No anger. Mostly withdrawn and isolative to his room. He says depression is way better. Denies SI. Guarded on presentation. Review of Systems Constitutional: Denies body ache(s), Denies chills and Denies fever(s) Eyes: Denies blurry vision Denies sore throat Cardiovascular: Denies chest pain and Denies dyspnea Respiratory: Denies cough and Denies dyspnea Gastrointestinal: Denies abdominal pain, Denies nausea and Denies vomiting Musculoskeletal: Denies back pain Skin/Breast: Denies rash Psychiatric: Denies anxiety, Reports depression, Denies panic attacks and Denies suicidal ideation Mental Status Exam Mental Status Exam Narrative: Pt is alert and oriented; behavior is cooperative, calm, guarded but also friendly on approach; patient is not in distress; dressed in hospital attire with adequate hygiene; mood is described as okay though affect blunted; eye contact appropriate; Speech is soft, low deep voice, normal prosody and not pressured; psychomotor retardation present; thought process is organized and goal directed; Thought content is on feeling lonely, struggling with achieving goals; denies any paranoid ideations and none expressed; denies any SI/HI. Denies AVH though does seem to be a little bit internally preoccupied Patients insight and judgment impaired Diagnostics Vital Signs (24Hr): Vital Signs - 24 hr 08/14/23 18:00 08/15/23 07:57 Temperature 97.8 F 98.7 F Pulse Rate 88 77 Respiratory Rate 16 16 Blood Pressure 133/84 137/73 Pulse Oximetry 99 94 Oxygen Delivery Method Room Air Room Air BMI result Body Mass Index 33.6 Labs 08/10/23 22:27 08/13/23 08:06 Medications Medications Current Medications Acetaminophen (Acetaminophen 325 Mg Tablet) 650 mg PO Q6H PRN PRN Reason: Headache/Pain Mild Scale (1-3) Al Hydroxide/Mg Hydroxide (Magnesium Hydrox/Alum Hydrox 30 Ml Oral.Susp) 30 ml PO Q6H PRN PRN Reason: Heartburn/Nausea Folic Acid (Folic Acid 1 Mg Tablet) 1 mg PO DAILY [facility] Last Admin: 08/14/23 08:18 Dose: 1 mg Gabapentin (Gabapentin 300 Mg Capsule) 300 mg PO TID [facility] Last Admin: 08/14/23 22:51 Dose: 300 mg Hydroxyzine HCl (Hydroxyzine Hcl 25 Mg Tablet) 25 mg PO Q6H PRN PRN Reason: Anxiety Last Admin: 08/14/23 22:51 Dose: 25 mg Magnesium Hydroxide (Milk Of Magnesia 30 Ml Oral.Susp) 30 ml PO DAILY PRN PRN Reason: Constipation Multivitamins/Vitamin C (Multivitamin Tablet) 1 tab PO DAILY [facility] Last Admin: 08/14/23 08:19 Dose: 1 tab Nicotine (Nicotine 21 Mg Patch.Td24) 21 mg TRANSDERMA DAILY PRN PRN Reason: smoking cessation Nicotine Polacrilex (Nicotine Polacrilex 2 Mg Gum) 4 mg BUCCAL Q2H PRN PRN Reason: Nicotine Cravings Olanzapine (Olanzapine 2.5 Mg Tablet) 2.5 mg PO DAILY [facility] Last Admin: 08/14/23 08:19 Dose: 2.5 mg Olanzapine (Olanzapine 5 Mg Tablet) 5 mg PO TID PRN PRN Reason: agitation Thiamine HCl (Thiamine Hcl 100 Mg Tablet) 100 mg PO DAILY [facility] Last Admin: 08/14/23 08:19 Dose: 100 mg Trazodone HCl (Trazodone Hcl 50 Mg Tablet) 50 mg PO BEDTIME MRX1 PRN PRN Reason: Insomnia Last Admin: 08/15/23 03:41 Dose: 50 mg Allergies Allergies Allergy/AdvReac Type Severity Reaction Status Date / Time No Known Allergies Allergy Verified 08/10/23 21:47 [No Known Allergies*] Assessment & Plan Assessment & Plan (1) Schizoaffective disorder, bipolar type: Status: Acute Code(s): F25.0 - Schizoaffective disorder, bipolar type (2) Alcohol abuse: Status: Acute Code(s): F10.10 - Alcohol abuse, uncomplicated Plan Patient is a 28-year-old male with history auditory hallucinations, alcohol use disorder, anxiety/depression who presents for worsening depression and the face of continued alcoholism and minimal medication treatment. Patient reports that he has been feeling like he has had trouble feeling well over the past weeks. Patient said that he is gotten frustrated with himself for doing dumb things like talking out loud. Patient is vague on details but says he is in a cycle of feeling depressed for few days then feeling hyper for few days; he also says he is in a pattern of drinking alcohol heavily for about 4 days in a row and then is sober for 4 days in a row. Patient reports much anxiety but only mild depression. He says he used to struggle with auditory hallucinations a year ago but has not since and does not now. Crisis report says patient caused considerable damage in his apartment recently. On inquiry patient said that he woke up out of a nightmare and punched a wall; he said another time he fell through a wall. Another time he was looking in the mirror, angry at himself and punched the mirror. Discussed history of manic type episodes but difficult to discern adequate details and he seems to say only last for about 2 days. Regarding medication management, patient says the Zyprexa 2.5 mg is helpful and he does not want to increase the dose. Patient was started on gabapentin for alcohol withdrawal which he says has been very calming for him and he would like to continue on this. Regarding alcohol abuse, reports he has been drinking for the past year; prior to this admission, he reports he was sober for 4 days and only drank for the past 2 days; denies any withdrawal symptoms; denies any history of withdrawal seizures. He smokes cannabis once a month but denies all other drug use. Impression: Patient is very vague about symptoms. Although patient is a limited historian, vague on details, Crisis report indicates he has a history of schizoaffective disorder; Long history of alcohol abuse and significant, recent damage to his apartment. It is possible he is now facing eviction. Given patient's reported history and complete loss of contact with all family members, it is unlikely that he has escaped traumatic experiences and probably has some amount of PTSD. At this time he is not willing to increase current antipsychotic medication. No symptoms withdrawal, not scoring on CIWA and reportedly only drinking for the past 2 days. Will however leave on gabapentin since it seems to help with anxiety and can help with alcohol cravings. Plan: CV Q 15 minute checks Continue Zyprexa 2.5 mg daily Continue gabapentin 300 mg t.i.d. [facility] CIWA Gather collateral 08/13: continue current management and treatment plan. 08/14: Suggested increase Olanzapine, or switch to Seroquel which he had taken in the past but patient refused. Also offered to switch Trazodone to Remeron. However he would like to continue Trazodone. Reason for continued inpatient stay Substantial Risk for: inability to function and rapid decompensation Time Spent With Patient Time: Total time managing care of this patient today ____ minutes.
[2023-08-15] MEDS: Thiamine HCL 100 MG TABLET PO (09:13)
[2023-08-15] MEDS: OLANZapine 2.5 MG TABLET PO (09:13)
[2023-08-15] MEDS: Multivitamin TABLET 1 TAB PO (09:13)
[2023-08-15] MEDS: Gabapentin 300 MG CAPSULE PO ×2 (09:13→22:02)
[2023-08-15] MEDS: Folic Acid 1 MG TABLET PO (09:13)
[2023-08-15 16:44] VITALS: BP 133/73; PULSE 90; RESP 17; TEMP 37.2; O2SAT 98
[2023-08-16] MEDS: Folic Acid 1 MG TABLET PO (08:47)
[2023-08-16] MEDS: Thiamine HCL 100 MG TABLET PO (08:47)
[2023-08-16] MEDS: Gabapentin 300 MG CAPSULE PO ×3 (08:47→22:10)
[2023-08-16] MEDS: OLANZapine 2.5 MG TABLET PO ×2 (08:47→13:33)
[2023-08-16] MEDS: Multivitamin TABLET 1 TAB PO (08:47)
--- NOTE | 2023-08-16 09:41 | P.PNPSI_ITS ---
Subjective Subjective Date of Service: 08/16/23 Reason For Visit: depressed/disorganized Interim History: met with patient; discussed with team; reviewed chart pt says overall doing much better; depression and anxiety both better. Remains vague on current AH but much more open in general saying they still come and go; can get confused by them wondering if it's his thoughts or voices...says was much worse in past. That said agrees that he's still having trouble managing himself and agrees he gets overwhelmed and that increase in Zyprexa might help. Crime Prevention Police Officer reviewed risks/side/effects and pt agrees to increase; says whatever he was on in past causes such a side-effect that he's been wary of increasing meds now, but agrees to trial. 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 Mental Status Exam Mental Status Exam Narrative: Pt is alert and oriented; behavior is cooperative, calm, friendly on approach, less guarded; patient is not in distress; dressed in hospital attire with adequate hygiene; mood is described as better though affect a little brighter, more relaxed; eye contact appropriate; Speech is soft, low deep voice, normal prosody and not pressured; some psychomotor retardation present; thought process is organized and goal directed; Thought content is on dealing with stress; struggling with achieving goals; denies any paranoid ideations and none expressed; denies any SI/HI. Denies current AVH Patients insight and judgment impaired but improved. Diagnostics Vital Signs (24Hr): Vital Signs - 24 hr 08/15/23 16:44 Temperature 98.9 F Pulse Rate 90 Respiratory Rate 17 Blood Pressure 133/73 Pulse Oximetry 98 Oxygen Delivery Method Room Air BMI result Body Mass Index 33.6 Labs 08/10/23 22:27 08/13/23 08:06 Medications Medications Current Medications Acetaminophen (Acetaminophen 325 Mg Tablet) 650 mg PO Q6H PRN PRN Reason: Headache/Pain Mild Scale (1-3) Al Hydroxide/Mg Hydroxide (Magnesium Hydrox/Alum Hydrox 30 Ml Oral.Susp) 30 ml PO Q6H PRN PRN Reason: Heartburn/Nausea Folic Acid (Folic Acid 1 Mg Tablet) 1 mg PO DAILY [facility] Last Admin: 08/16/23 08:47 Dose: 1 mg Gabapentin (Gabapentin 300 Mg Capsule) 300 mg PO TID [facility] Last Admin: 08/16/23 08:47 Dose: 300 mg Hydroxyzine HCl (Hydroxyzine Hcl 25 Mg Tablet) 25 mg PO Q6H PRN PRN Reason: Anxiety Last Admin: 08/14/23 22:51 Dose: 25 mg Magnesium Hydroxide (Milk Of Magnesia 30 Ml Oral.Susp) 30 ml PO DAILY PRN PRN Reason: Constipation Multivitamins/Vitamin C (Multivitamin Tablet) 1 tab PO DAILY [facility] Last Admin: 08/16/23 08:47 Dose: 1 tab Nicotine (Nicotine 21 Mg Patch.Td24) 21 mg TRANSDERMA DAILY PRN PRN Reason: smoking cessation Nicotine Polacrilex (Nicotine Polacrilex 2 Mg Gum) 4 mg BUCCAL Q2H PRN PRN Reason: Nicotine Cravings Olanzapine (Olanzapine 2.5 Mg Tablet) 2.5 mg PO DAILY [facility] Last Admin: 08/16/23 08:47 Dose: 2.5 mg Olanzapine (Olanzapine 5 Mg Tablet) 5 mg PO TID PRN PRN Reason: agitation Thiamine HCl (Thiamine Hcl 100 Mg Tablet) 100 mg PO DAILY [facility] Last Admin: 08/16/23 08:47 Dose: 100 mg Trazodone HCl (Trazodone Hcl 50 Mg Tablet) 50 mg PO BEDTIME PRN PRN Reason: Insomnia Last Admin: 08/15/23 22:01 Dose: 50 mg Allergies Allergies Allergy/AdvReac Type Severity Reaction Status Date / Time No Known Allergies Allergy Verified 08/10/23 21:47 [No Known Allergies*] Assessment & Plan Assessment & Plan (1) Schizoaffective disorder, bipolar type: Status: Acute Code(s): F25.0 - Schizoaffective disorder, bipolar type (2) Alcohol abuse: Status: Acute Code(s): F10.10 - Alcohol abuse, uncomplicated Plan Patient is a 28-year-old male with history auditory hallucinations, alcohol use disorder, anxiety/depression who presents for worsening depression and the face of continued alcoholism and minimal medication treatment. Patient reports that he has been feeling like he has had trouble feeling well over the past weeks. Patient said that he is gotten frustrated with himself for doing dumb things like talking out loud. Patient is vague on details but says he is in a cycle of feeling depressed for few days then feeling hyper for few days; he also says he is in a pattern of drinking alcohol heavily for about 4 days in a row and then is sober for 4 days in a row. Patient reports much anxiety but only mild depression. He says he used to struggle with auditory hallucinations a year ago but has not since and does not now. Crisis report says patient caused considerable damage in his apartment recently. On inquiry patient said that he woke up out of a nightmare and punched a wall; he said another time he fell through a wall. Another time he was looking in the mirror, angry at himself and punched the mirror. Discussed history of manic type episodes but difficult to discern adequate details and he seems to say only last for about 2 days. Regarding medication management, patient says the Zyprexa 2.5 mg is helpful and he does not want to increase the dose. Patient was started on gabapentin for alcohol withdrawal which he says has been very calming for him and he would like to continue on this. Regarding alcohol abuse, reports he has been drinking for the past year; prior to this admission, he reports he was sober for 4 days and only drank for the past 2 days; denies any withdrawal symptoms; denies any history of withdrawal seizures. He smokes cannabis once a month but denies all other drug use. Impression: Patient is very vague about symptoms. Although patient is a limited historian, vague on details, Crisis report indicates he has a history of schizoaffective disorder; Long history of alcohol abuse and significant, recent damage to his apartment. It is possible he is now facing eviction. Given patient's reported history and complete loss of contact with all family members, it is unlikely that he has escaped traumatic experiences and probably has some amount of PTSD. At this time he is not willing to increase current antipsychotic medication. No symptoms withdrawal, not scoring on CIWA and reportedly only drinking for the past 2 days. Will however leave on gabapentin since it seems to help with anxiety and can help with alcohol cravings. Hospital course: 08/13: continue current management and treatment plan. 08/14: Suggested increase Olanzapine, or switch to Seroquel which he had taken in the past but patient refused. Also offered to switch Trazodone to Remeron. However he would like to continue Trazodone. 08/05 pt says overall doing much better; depression and anxiety both better. Remains vague on current AH but much more open in general saying they still come and go; can get confused by them wondering if it's his thoughts or voices...says was much worse in past. That said agrees that he's still having trouble managing himself and agrees he gets overwhelmed and that increase in Zyprexa might help. Crime Prevention Police Officer reviewed risks/side/effects and pt agrees to increase; says whatever he was on in past causes such a side-effect that he's been wary of increasing meds now, but agrees to trial. 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 [facility] Gather collateral Patient educated on: diagnosis, medication risk/benefits, substance abuse and therapeutic strategies Informed Consent: understands Reason for continued inpatient stay Substantial Risk for: rapid decompensation Time Spent With Patient Time: Total time managing care of this patient today ____ minutes.
[2023-08-16] MEDS: traZODone HCL 50 MG TABLET PO (22:10)
[2023-08-17 08:16] VITALS: BP 152/97; PULSE 68; RESP 16; TEMP 36.4; O2SAT 100
[2023-08-17] MEDS: Thiamine HCL 100 MG TABLET PO (08:35)
[2023-08-17] MEDS: Folic Acid 1 MG TABLET PO (08:35)
[2023-08-17] MEDS: Multivitamin TABLET 1 TAB PO (08:35)
[2023-08-17] MEDS: OLANZapine 5 MG TABLET PO (08:35)
[2023-08-17] MEDS: Gabapentin 300 MG CAPSULE PO ×3 (08:35→22:11)
--- NOTE | 2023-08-17 09:44 | P.PNPSI_ITS ---
Subjective Subjective Date of Service: 08/17/23 Reason For Visit: depressed/disorganized Interim History: met with patient; discussed with team feels overall improved; feels more calm, clear minded; tolerating increased Zyprexa. Pt says it's fair that he's getting evicted and grateful [facility] will give him another chance. He shares that he plans to go to [facility] respite who will help him possibly get into [facility] (dual diagnosis program; he must be in treatment and sober for 3 months) Mental Status Exam Mental Status Exam Narrative: Pt is alert and oriented; behavior is cooperative, calm, friendly on approach, less guarded; patient is not in distress; dressed in hospital attire with adequate hygiene; mood is described as better though affect a little brighter, more relaxed; eye contact appropriate; Speech is soft, low deep voice, normal prosody and not pressured; some psychomotor retardation present; thought process is organized and goal directed; Thought content is on dealing with stress; struggling with achieving goals; denies any paranoid ideations and none expressed; denies any SI/HI. Denies current [facility] Patients insight and judgment impaired but improved. Diagnostics Vital Signs (24Hr): Vital Signs - 24 hr 08/17/23 08:16 Temperature 97.6 F Pulse Rate 68 Respiratory Rate 16 Blood Pressure 152/97 H Pulse Oximetry 100 Oxygen Delivery Method Room Air BMI result Body Mass Index 33.6 Labs 08/10/23 22:27 08/13/23 08:06 Medications Medications Current Medications Acetaminophen (Acetaminophen 325 Mg Tablet) 650 mg PO Q6H PRN PRN Reason: Headache/Pain Mild Scale (1-3) Al Hydroxide/Mg Hydroxide (Magnesium Hydrox/Alum Hydrox 30 Ml Oral.Susp) 30 ml PO Q6H PRN PRN Reason: Heartburn/Nausea Folic Acid (Folic Acid 1 Mg Tablet) 1 mg PO DAILY [facility] Last Admin: 08/17/23 08:35 Dose: 1 mg Gabapentin (Gabapentin 300 Mg Capsule) 300 mg PO TID [facility] Last Admin: 08/17/23 08:35 Dose: 300 mg Hydroxyzine HCl (Hydroxyzine Hcl 25 Mg Tablet) 25 mg PO Q6H PRN PRN Reason: Anxiety Last Admin: 08/14/23 22:51 Dose: 25 mg Magnesium Hydroxide (Milk Of Magnesia 30 Ml Oral.Susp) 30 ml PO DAILY PRN PRN Reason: Constipation Multivitamins/Vitamin C (Multivitamin Tablet) 1 tab PO DAILY [facility] Last Admin: 08/17/23 08:35 Dose: 1 tab Nicotine (Nicotine 21 Mg Patch.Td24) 21 mg TRANSDERMA DAILY PRN PRN Reason: smoking cessation Nicotine Polacrilex (Nicotine Polacrilex 2 Mg Gum) 4 mg BUCCAL Q2H PRN PRN Reason: Nicotine Cravings Olanzapine (Olanzapine 5 Mg Tablet) 5 mg PO TID PRN PRN Reason: agitation Olanzapine (Olanzapine 5 Mg Tablet) 5 mg PO DAILY [facility] Last Admin: 08/17/23 08:35 Dose: 5 mg Thiamine HCl (Thiamine Hcl 100 Mg Tablet) 100 mg PO DAILY [facility] Last Admin: 08/17/23 08:35 Dose: 100 mg Trazodone HCl (Trazodone Hcl 50 Mg Tablet) 50 mg PO BEDTIME PRN PRN Reason: Insomnia Last Admin: 08/16/23 22:10 Dose: 50 mg Allergies Allergies Allergy/AdvReac Type Severity Reaction Status Date / Time No Known Allergies Allergy Verified 08/10/23 21:47 [No Known Allergies*] Assessment & Plan Assessment & Plan (1) Schizoaffective disorder, bipolar type: Status: Acute Code(s): F25.0 - Schizoaffective disorder, bipolar type (2) Alcohol abuse: Status: Acute Code(s): F10.10 - Alcohol abuse, uncomplicated Plan Patient is a 28-year-old male with history auditory hallucinations, alcohol use disorder, anxiety/depression who presents for worsening depression and the face of continued alcoholism and minimal medication treatment. Patient reports that he has been feeling like he has had trouble feeling well over the past weeks. Patient said that he is gotten frustrated with himself for doing dumb things like talking out loud. Patient is vague on details but says he is in a cycle of feeling depressed for few days then feeling hyper for few days; he also says he is in a pattern of drinking alcohol heavily for about 4 days in a row and then is sober for 4 days in a row. Patient reports much anxiety but only mild depression. He says he used to struggle with auditory hallucinations a year ago but has not since and does not now. Crisis report says patient caused considerable damage in his apartment recently. On inquiry patient said that he woke up out of a nightmare and punched a wall; he said another time he fell through a wall. Another time he was looking in the mirror, angry at himself and punched the mirror. Discussed history of manic type episodes but difficult to discern adequate details and he seems to say only last for about 2 days. Regarding medication management, patient says the Zyprexa 2.5 mg is helpful and he does not want to increase the dose. Patient was started on gabapentin for alcohol withdrawal which he says has been very calming for him and he would like to continue on this. Regarding alcohol abuse, reports he has been drinking for the past year; prior to this admission, he reports he was sober for 4 days and only drank for the past 2 days; denies any withdrawal symptoms; denies any history of withdrawal seizures. He smokes cannabis once a month but denies all other drug use. Impression: Patient is very vague about symptoms. Although patient is a limited historian, vague on details, Crisis report indicates he has a history of schizoaffective disorder; Long history of alcohol abuse and significant, recent damage to his apartment. It is possible he is now facing eviction. Given patient's reported history and complete loss of contact with all family members, it is unlikely that he has escaped traumatic experiences and probably has some amount of PTSD. At this time he is not willing to increase current antipsychotic medication. No symptoms withdrawal, not scoring on CIWA and reportedly only drinking for the past 2 days. Will however leave on gabapentin since it seems to help with anxiety and can help with alcohol cravings. Hospital course: 08/13: continue current management and treatment plan. 08/14: Suggested increase Olanzapine, or switch to Seroquel which he had taken in the past but patient refused. Also offered to switch Trazodone to Remeron. However he would like to continue Trazodone. 08/15 pt says overall doing much better; depression and anxiety both better. Remains vague on current AH but much more open in general saying they still come and go; can get confused by them wondering if it's his thoughts or voices...says was much worse in past. That said agrees that he's still having trouble managing himself and agrees he gets overwhelmed and that increase in Zyprexa might help. Client Service Associate reviewed risks/side/effects and pt agrees to increase; says whatever he was on in past causes such a side-effect that he's been wary of increasing meds now, but agrees to trial. 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 Pt says it's fair that he's getting evicted and grateful [facility] will give him another chance. He shares that he plans to go to [facility] respite who will help him possibly get into [facility] (dual diagnosis program; he must be in treatment and sober for 3 months) Plan: CV Q 15 minute checks Continue Zyprexa 5 mg daily Continue gabapentin 300 mg t.i.d. for anxiety and etoh cravings Gather collateral Patient educated on: diagnosis, medication risk/benefits, substance abuse and therapeutic strategies Informed Consent: understands Reason for continued inpatient stay Substantial Risk for: rapid decompensation Time Spent With Patient Time: Total time managing care of this patient today ____ minutes.
[2023-08-17 16:15] VITALS: BP 129/82; PULSE 78; TEMP 36.5; O2SAT 99
[2023-08-17] MEDS: traZODone HCL 50 MG TABLET PO (22:11)
[2023-08-18 07:57] VITALS: BP 126/79; PULSE 84; RESP 16; TEMP 36.9; O2SAT 98
[2023-08-18] MEDS: OLANZapine 5 MG TABLET PO (08:47)
[2023-08-18] MEDS: Folic Acid 1 MG TABLET PO (08:47)
[2023-08-18] MEDS: Thiamine HCL 100 MG TABLET PO (08:47)
[2023-08-18] MEDS: Multivitamin TABLET 1 TAB PO (08:47)
[2023-08-18] MEDS: Gabapentin 300 MG CAPSULE PO ×3 (08:47→22:21)
--- NOTE | 2023-08-18 09:51 | P.PNPSI_ITS ---
Subjective Subjective Date of Service: 08/18/23 Reason For Visit: depressed/disorganized Interim History: met with patient; discussed with team pt reports he continues to do well, feeling much more calm and in good mood. Says sleeping well; No AVH. He is optimistic and hopeful about [employer] program. Pt is attending groups and remains in good behavioral and impulse control, appropriate with peers and staff. Mental Status Exam Mental Status Exam Narrative: Pt is alert and oriented; behavior is cooperative, calm, friendly on approach, less guarded; patient is not in distress; dressed in hospital attire with adequate hygiene; mood is described as good and affect brighter, more relaxed; eye contact appropriate; Speech is soft, low deep voice, normal prosody and not pressured; some psychomotor retardation present; thought process is organized and goal directed; Thought content is on dealing with stress; struggling with achieving goals; denies any paranoid ideations and none expressed; denies any SI/HI. Denies current [facility] Patients insight and judgment fair. Diagnostics Vital Signs (24Hr): Vital Signs - 24 hr 08/17/23 16:15 08/18/23 07:57 Temperature 97.7 F 98.5 F Pulse Rate 78 84 Respiratory Rate 16 Blood Pressure 129/82 126/79 Pulse Oximetry 99 98 Oxygen Delivery Method Room Air Room Air BMI result Body Mass Index 33.6 Labs 08/10/23 22:27 08/13/23 08:06 Medications Medications Current Medications Acetaminophen (Acetaminophen 325 Mg Tablet) 650 mg PO Q6H PRN PRN Reason: Headache/Pain Mild Scale (1-3) Al Hydroxide/Mg Hydroxide (Magnesium Hydrox/Alum Hydrox 30 Ml Oral.Susp) 30 ml PO Q6H PRN PRN Reason: Heartburn/Nausea Folic Acid (Folic Acid 1 Mg Tablet) 1 mg PO DAILY [facility] Last Admin: 08/18/23 08:47 Dose: 1 mg Gabapentin (Gabapentin 300 Mg Capsule) 300 mg PO TID [facility] Last Admin: 08/18/23 08:47 Dose: 300 mg Hydroxyzine HCl (Hydroxyzine Hcl 25 Mg Tablet) 25 mg PO Q6H PRN PRN Reason: Anxiety Last Admin: 08/14/23 22:51 Dose: 25 mg Magnesium Hydroxide (Milk Of Magnesia 30 Ml Oral.Susp) 30 ml PO DAILY PRN PRN Reason: Constipation Multivitamins/Vitamin C (Multivitamin Tablet) 1 tab PO DAILY [facility] Last Admin: 08/18/23 08:47 Dose: 1 tab Nicotine (Nicotine 21 Mg Patch.Td24) 21 mg TRANSDERMA DAILY PRN PRN Reason: smoking cessation Nicotine Polacrilex (Nicotine Polacrilex 2 Mg Gum) 4 mg BUCCAL Q2H PRN PRN Reason: Nicotine Cravings Olanzapine (Olanzapine 5 Mg Tablet) 5 mg PO TID PRN PRN Reason: agitation Olanzapine (Olanzapine 5 Mg Tablet) 5 mg PO DAILY [facility] Last Admin: 08/18/23 08:47 Dose: 5 mg Thiamine HCl (Thiamine Hcl 100 Mg Tablet) 100 mg PO DAILY [facility] Last Admin: 08/18/23 08:47 Dose: 100 mg Trazodone HCl (Trazodone Hcl 50 Mg Tablet) 50 mg PO BEDTIME PRN PRN Reason: Insomnia Last Admin: 08/17/23 22:11 Dose: 50 mg Allergies Allergies Allergy/AdvReac Type Severity Reaction Status Date / Time No Known Allergies Allergy Verified 08/10/23 21:47 [No Known Allergies*] Assessment & Plan Assessment & Plan (1) Schizoaffective disorder, bipolar type: Status: Acute Code(s): F25.0 - Schizoaffective disorder, bipolar type (2) Alcohol abuse: Status: Acute Code(s): F10.10 - Alcohol abuse, uncomplicated Plan Patient is a 28-year-old male with history auditory hallucinations, alcohol use disorder, anxiety/depression who presents for worsening depression and the face of continued alcoholism and minimal medication treatment. Patient reports that he has been feeling like he has had trouble feeling well over the past weeks. Patient said that he is gotten frustrated with himself for doing dumb things like talking out loud. Patient is vague on details but says he is in a cycle of feeling depressed for few days then feeling hyper for few days; he also says he is in a pattern of drinking alcohol heavily for about 4 days in a row and then is sober for 4 days in a row. Patient reports much anxiety but only mild depression. He says he used to struggle with auditory hallucinations a year ago but has not since and does not now. Crisis report says patient caused considerable damage in his apartment recently. On inquiry patient said that he woke up out of a nightmare and punched a wall; he said another time he fell through a wall. Another time he was looking in the mirror, angry at himself and punched the mirror. Discussed history of manic type episodes but difficult to discern adequate details and he seems to say only last for about 2 days. Regarding medication management, patient says the Zyprexa 2.5 mg is helpful and he does not want to increase the dose. Patient was started on gabapentin for alcohol withdrawal which he says has been very calming for him and he would like to continue on this. Regarding alcohol abuse, reports he has been drinking for the past year; prior to this admission, he reports he was sober for 4 days and only drank for the past 2 days; denies any withdrawal symptoms; denies any history of withdrawal seizures. He smokes cannabis once a month but denies all other drug use. Impression: Patient is very vague about symptoms. Although patient is a limited historian, vague on details, Crisis report indicates he has a history of schizoaffective disorder; Long history of alcohol abuse and significant, recent damage to his apartment. It is possible he is now facing eviction. Given patient's reported history and complete loss of contact with all family members, it is unlikely that he has escaped traumatic experiences and probably has some amount of PTSD. At this time he is not willing to increase current antipsychotic medication. No symptoms withdrawal, not scoring on CIWA and reportedly only drinking for the past 2 days. Will however leave on gabapentin since it seems to help with anxiety and can help with alcohol cravings. Hospital course: 08/13: continue current management and treatment plan. 08/14: Suggested increase Olanzapine, or switch to Seroquel which he had taken in the past but patient refused. Also offered to switch Trazodone to Remeron. However he would like to continue Trazodone. 08/15 pt says overall doing much better; depression and anxiety both better. Remains vague on current AH but much more open in general saying they still come and go; can get confused by them wondering if it's his thoughts or voices...says was much worse in past. That said agrees that he's still having trouble managing himself and agrees he gets overwhelmed and that increase in Zyprexa might help. [employer] reviewed risks/side/effects and pt agrees to increase; says whatever he was on in past causes such a side-effect that he's been wary of increasing meds now, but agrees to trial. 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 Pt says it's fair that he's getting evicted and grateful [facility] will give him another chance. He shares that he plans to go to [facility] respite who will help him possibly get into [facility] (dual diagnosis program; he must be in treatment and sober for 3 months) 08/17 pt reports he continues to do well, feeling much more calm and in good mood. Says sleeping well; No AVH. He is optimistic and hopeful about [facility] program. Pt is attending groups and remains in good behavioral and impulse control, appropriate with peers and staff. Pt is stable on current medication regimen. That said, blog writer and team agree that he will do much better if he can discharge to stable environment and it's worth him remaining on unit for dispo planning. Plan: CV Q 15 minute checks Continue Zyprexa 5 mg daily Continue gabapentin 300 mg t.i.d. for anxiety and etoh cravings Gather collateral Patient educated on: diagnosis, medication risk/benefits, substance abuse and therapeutic strategies Informed Consent: understands Reason for continued inpatient stay Substantial Risk for: stable for discharge Time Spent With Patient Time: Total time managing care of this patient today ____ minutes.
[2023-08-18 17:00] VITALS: BP 134/85; PULSE 79; TEMP 36.8; O2SAT 98
[2023-08-18] MEDS: traZODone HCL 50 MG TABLET PO (22:22)
[2023-08-18] MEDS: hydrOXYzine HCL 25 MG TABLET PO (22:22)
[2023-08-19 07:00] VITALS: BMI 33.5
[2023-08-19 08:29] VITALS: BP 139/83; PULSE 83; RESP 18; TEMP 36.6; O2SAT 98
[2023-08-19] MEDS: Multivitamin TABLET 1 TAB PO (09:21)
[2023-08-19] MEDS: Thiamine HCL 100 MG TABLET PO (09:21)
[2023-08-19] MEDS: OLANZapine 5 MG TABLET PO (09:21)
[2023-08-19] MEDS: Gabapentin 300 MG CAPSULE PO ×3 (09:21→21:22)
[2023-08-19] MEDS: Folic Acid 1 MG TABLET PO (09:21)
[2023-08-19] MEDS: hydrOXYzine HCL 25 MG TABLET PO (21:22)
[2023-08-19] MEDS: traZODone HCL 50 MG TABLET PO (21:22)
--- NOTE | 2023-08-19 21:38 | P.PNPSI_ITS ---
Subjective Subjective Date of Service: 08/19/23 Reason For Visit: depressed/disorganized Interim History: Met with patient; discussed with team Patient remains in good behavioral and impulse control, friendly, cooperative and polite and appropriate with peers and staff. Says he is doing good and overall feeling much better, more clear minded, calm. Denies any AVH. Patient feels he is benefitting from groups and is grateful for help received. He remains hopeful about getting into program Mental Status Exam Mental Status Exam Narrative: Pt is alert and oriented; behavior is cooperative, calm, friendly; patient is not in distress; dressed in hospital attire with adequate hygiene; mood is described as good and affect brighter, more relaxed; eye contact appropriate; Speech is soft, low deep voice, normal prosody and not pressured; no psychomotor retardation present; thought process is organized and goal directed; Thought content is on aftercare plans; denies any paranoid ideations and none expressed; denies any SI/HI. Denies current AVH Patients insight and judgment fair. Diagnostics Vital Signs (24Hr): Vital Signs - 24 hr 08/19/23 08:29 Temperature 97.9 F Pulse Rate 83 Respiratory Rate 18 Blood Pressure 139/83 Pulse Oximetry 98 Oxygen Delivery Method Room Air BMI result Body Mass Index 33.5 Labs 08/10/23 22:27 08/13/23 08:06 Medications Medications Current Medications Acetaminophen (Acetaminophen 325 Mg Tablet) 650 mg PO Q6H PRN PRN Reason: Headache/Pain Mild Scale (1-3) Al Hydroxide/Mg Hydroxide (Magnesium Hydrox/Alum Hydrox 30 Ml Oral.Susp) 30 ml PO Q6H PRN PRN Reason: Heartburn/Nausea Folic Acid (Folic Acid 1 Mg Tablet) 1 mg PO DAILY [facility] Last Admin: 08/19/23 09:21 Dose: 1 mg Gabapentin (Gabapentin 300 Mg Capsule) 300 mg PO TID [facility] Last Admin: 08/19/23 21:22 Dose: 300 mg Hydroxyzine HCl (Hydroxyzine Hcl 25 Mg Tablet) 25 mg PO Q6H PRN PRN Reason: Anxiety Last Admin: 08/19/23 21:22 Dose: 25 mg Magnesium Hydroxide (Milk Of Magnesia 30 Ml Oral.Susp) 30 ml PO DAILY PRN PRN Reason: Constipation Multivitamins/Vitamin C (Multivitamin Tablet) 1 tab PO DAILY [facility] Last Admin: 08/19/23 09:21 Dose: 1 tab Nicotine (Nicotine 21 Mg Patch.Td24) 21 mg TRANSDERMA DAILY PRN PRN Reason: smoking cessation Nicotine Polacrilex (Nicotine Polacrilex 2 Mg Gum) 4 mg BUCCAL Q2H PRN PRN Reason: Nicotine Cravings Olanzapine (Olanzapine 5 Mg Tablet) 5 mg PO TID PRN PRN Reason: agitation Olanzapine (Olanzapine 5 Mg Tablet) 5 mg PO DAILY [facility] Last Admin: 08/19/23 09:21 Dose: 5 mg Thiamine HCl (Thiamine Hcl 100 Mg Tablet) 100 mg PO DAILY [facility] Last Admin: 08/19/23 09:21 Dose: 100 mg Trazodone HCl (Trazodone Hcl 50 Mg Tablet) 50 mg PO BEDTIME PRN PRN Reason: Insomnia Last Admin: 08/19/23 21:22 Dose: 50 mg Allergies Allergies Allergy/AdvReac Type Severity Reaction Status Date / Time No Known Allergies Allergy Verified 08/10/23 21:47 [No Known Allergies*] Assessment & Plan Assessment & Plan (1) Schizoaffective disorder, bipolar type: Status: Acute Code(s): F25.0 - Schizoaffective disorder, bipolar type (2) Alcohol abuse: Status: Acute Code(s): F10.10 - Alcohol abuse, uncomplicated Plan Patient is a 28-year-old male with history auditory hallucinations, alcohol use disorder, anxiety/depression who presents for worsening depression and the face of continued alcoholism and minimal medication treatment. Patient reports that he has been feeling like he has had trouble feeling well over the past weeks. Patient said that he is gotten frustrated with himself for doing dumb things like talking out loud. Patient is vague on details but says he is in a cycle of feeling depressed for few days then feeling hyper for few days; he also says he is in a pattern of drinking alcohol heavily for about 4 days in a row and then is sober for 4 days in a row. Patient reports much anxiety but only mild depression. He says he used to struggle with auditory hallucinations a year ago but has not since and does not now. Crisis report says patient caused considerable damage in his apartment recently. On inquiry patient said that he woke up out of a nightmare and punched a wall; he said another time he fell through a wall. Another time he was looking in the mirror, angry at himself and punched the mirror. Discussed history of manic type episodes but difficult to discern adequate details and he seems to say only last for about 2 days. Regarding medication management, patient says the Zyprexa 2.5 mg is helpful and he does not want to increase the dose. Patient was started on gabapentin for alcohol withdrawal which he says has been very calming for him and he would like to continue on this. Regarding alcohol abuse, reports he has been drinking for the past year; prior to this admission, he reports he was sober for 4 days and only drank for the past 2 days; denies any withdrawal symptoms; denies any history of withdrawal seizures. He smokes cannabis once a month but denies all other drug use. Impression: Patient is very vague about symptoms. Although patient is a limited historian, vague on details, Crisis report indicates he has a history of schizoaffective disorder; Long history of alcohol abuse and significant, recent damage to his apartment. It is possible he is now facing eviction. Given patient's reported history and complete loss of contact with all family members, it is unlikely that he has escaped traumatic experiences and probably has some amount of PTSD. At this time he is not willing to increase current antipsychotic medication. No symptoms withdrawal, not scoring on CIWA and reportedly only drinking for the past 2 days. Will however leave on gabapentin since it seems to help with anxiety and can help with alcohol cravings. Hospital course: 08/13: continue current management and treatment plan. 08/14: Suggested increase Olanzapine, or switch to Seroquel which he had taken in the past but patient refused. Also offered to switch Trazodone to Remeron. However he would like to continue Trazodone. 08/15 pt says overall doing much better; depression and anxiety both better. Remains vague on current AH but much more open in general saying they still come and go; can get confused by them wondering if it's his thoughts or voices...says was much worse in past. That said agrees that he's still having trouble managing himself and agrees he gets overwhelmed and that increase in Zyprexa might help. Mixing Picker Tender reviewed risks/side/effects and pt agrees to increase; says whatever he was on in past causes such a side-effect that he's been wary of increasing meds now, but agrees to trial. 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 says needs more day structure; looking forward to football, being outside; yes to tin recovery worker 08/16 feels overall improved; feels more calm, clear minded; tolerating increased Zyprexa. Pt says it's fair that he's getting evicted and grateful [facility] will give him another chance. He shares that he plans to go to [facility] respite who will help him possibly get into [facility] (dual diagnosis program; he must be in treatment and sober for 3 months) 08/17 pt reports he continues to do well, feeling much more calm and in good mood. Says sleeping well; No AVH. He is optimistic and hopeful about [facility] program. Pt is attending groups and remains in good behavioral and impulse control, appropriate with peers and staff. Pt is stable on current medication regimen. That said, insurance writer and team agree that he will do much better if he can discharge to stable environment and it's worth him remaining on unit for dispo planning. 08/18 Patient remains in good behavioral and impulse control, friendly, cooperative and polite and appropriate with peers and staff. Says he is doing good and overall feeling much better, more clear minded, calm. Denies any AVH. Patient feels he is benefitting from groups and is grateful for help received. He remains hopeful about getting into program -insurance writer discussed case with patient's outpatient provider Manpreet Taveras who agrees with current treatment plan Pt is stable on current medication regimen and no changes warranted at this time. Plan: CV Q 15 minute checks Continue Zyprexa 5 mg daily Continue gabapentin 300 mg t.i.d. for anxiety and etoh cravings Gather collateral Patient educated on: diagnosis, medication risk/benefits and therapeutic strategies Informed Consent: understands Reason for continued inpatient stay Substantial Risk for: stable for discharge Time Spent With Patient Time: Total time managing care of this patient today ____ minutes.
[2023-08-20] MEDS: Folic Acid 1 MG TABLET PO (09:04)
[2023-08-20] MEDS: Thiamine HCL 100 MG TABLET PO (09:04)
[2023-08-20] MEDS: Gabapentin 300 MG CAPSULE PO ×3 (09:04→22:24)
[2023-08-20] MEDS: OLANZapine 5 MG TABLET PO ×2 (09:05→22:25)
[2023-08-20] MEDS: Multivitamin TABLET 1 TAB PO (09:05)
[2023-08-20 09:15] VITALS: BP 111/74; PULSE 80; RESP 18; TEMP 36.4; O2SAT 100
[2023-08-20] MEDS: clonazePAM 0.5 MG TABLET PO ×2 (14:36→19:20)
[2023-08-20] MEDS: traZODone HCL 50 MG TABLET PO (22:25)
[2023-08-21] MEDS: Gabapentin 300 MG CAPSULE PO ×3 (09:01→22:13)
[2023-08-21] MEDS: Folic Acid 1 MG TABLET PO (09:02)
[2023-08-21] MEDS: Thiamine HCL 100 MG TABLET PO (09:02)
[2023-08-21] MEDS: Multivitamin TABLET 1 TAB PO (09:02)
[2023-08-21] MEDS: OLANZapine 5 MG TABLET PO (09:02)
[2023-08-21 10:03] VITALS: BP 134/70; PULSE 78; RESP 18; TEMP 36.3; O2SAT 98
--- NOTE | 2023-08-21 11:18 | HO.PSYCHPN ---
Subjective Subjective Date of Service: 08/21/23 Reason For Visit: depressed/disorganized Interim History: met with patient; discussed with team pt reported to nurse that he continues to have AH but they are much better than on admission; he continues to minimize with news writer and will not increase Zyrpexa. He says they are tolerable now and he's able to ignore them. Pt however wanted to dc saying he was feeling claustrophobic around people on unit. Much discussion about it but pt came to conclusion it's best for him to stay on unit through weekend so that he can make sure he has a stable dispo (if no respite available, will go to a hotel for a while, which he discussed with outpt team). Mental Status Exam Mental Status Exam Narrative: Pt is alert and oriented; behavior is cooperative, calm, friendly; patient is not in distress; dressed in hospital attire with adequate hygiene; mood is described as good and affect brighter, more relaxed; eye contact appropriate; Speech is soft, low deep voice, normal prosody and not pressured; no psychomotor retardation present; thought process is organized and goal directed; Thought content is on aftercare plans; denies any paranoid ideations and none expressed; denies any SI/HI. Endorses AH but says better and tolerable. Patients insight and judgment fair. Diagnostics Vital Signs (24Hr): Vital Signs - 24 hr 08/21/23 10:03 Temperature 97.3 F Pulse Rate 78 Respiratory Rate 18 Blood Pressure 134/70 Pulse Oximetry 98 Oxygen Delivery Method Room Air BMI result Body Mass Index 33.5 Labs 08/10/23 22:27 08/13/23 08:06 Medications Medications Current Medications Acetaminophen (Acetaminophen 325 Mg Tablet) 650 mg PO Q6H PRN PRN Reason: Headache/Pain Mild Scale (1-3) Al Hydroxide/Mg Hydroxide (Magnesium Hydrox/Alum Hydrox 30 Ml Oral.Susp) 30 ml PO Q6H PRN PRN Reason: Heartburn/Nausea Clonazepam (Clonazepam 0.5 Mg Tablet) 0.5 mg PO BID PRN PRN Reason: moderate anxiety Last Admin: 08/20/23 19:20 Dose: 0.5 mg Folic Acid (Folic Acid 1 Mg Tablet) 1 mg PO DAILY [facility] Last Admin: 08/21/23 09:02 Dose: 1 mg Gabapentin (Gabapentin 300 Mg Capsule) 300 mg PO TID [facility] Last Admin: 08/21/23 09:01 Dose: 300 mg Hydroxyzine HCl (Hydroxyzine Hcl 25 Mg Tablet) 25 mg PO Q6H PRN PRN Reason: Anxiety Last Admin: 08/19/23 21:22 Dose: 25 mg Magnesium Hydroxide (Milk Of Magnesia 30 Ml Oral.Susp) 30 ml PO DAILY PRN PRN Reason: Constipation Multivitamins/Vitamin C (Multivitamin Tablet) 1 tab PO DAILY [facility] Last Admin: 08/21/23 09:02 Dose: 1 tab Nicotine (Nicotine 21 Mg Patch.Td24) 21 mg TRANSDERMA DAILY PRN PRN Reason: smoking cessation Nicotine Polacrilex (Nicotine Polacrilex 2 Mg Gum) 4 mg BUCCAL Q2H PRN PRN Reason: Nicotine Cravings Olanzapine (Olanzapine 5 Mg Tablet) 5 mg PO TID PRN PRN Reason: agitation Olanzapine (Olanzapine 5 Mg Tablet) 5 mg PO DAILY [facility] Last Admin: 08/21/23 09:02 Dose: 5 mg Thiamine HCl (Thiamine Hcl 100 Mg Tablet) 100 mg PO DAILY [facility] Last Admin: 08/21/23 09:02 Dose: 100 mg Trazodone HCl (Trazodone Hcl 50 Mg Tablet) 50 mg PO BEDTIME PRN PRN Reason: Insomnia Last Admin: 08/20/23 22:25 Dose: 50 mg Allergies Allergies Allergy/AdvReac Type Severity Reaction Status Date / Time No Known Allergies Allergy Verified 08/10/23 21:47 [No Known Allergies*] Assessment & Plan Assessment & Plan (1) Schizoaffective disorder, bipolar type: Status: Acute Code(s): F25.0 - Schizoaffective disorder, bipolar type (2) Alcohol abuse: Status: Acute Code(s): F10.10 - Alcohol abuse, uncomplicated Plan Patient is a 28-year-old male with history auditory hallucinations, alcohol use disorder, anxiety/depression who presents for worsening depression and the face of continued alcoholism and minimal medication treatment. Patient reports that he has been feeling like he has had trouble feeling well over the past weeks. Patient said that he is gotten frustrated with himself for doing dumb things like talking out loud. Patient is vague on details but says he is in a cycle of feeling depressed for few days then feeling hyper for few days; he also says he is in a pattern of drinking alcohol heavily for about 4 days in a row and then is sober for 4 days in a row. Patient reports much anxiety but only mild depression. He says he used to struggle with auditory hallucinations a year ago but has not since and does not now. Crisis report says patient caused considerable damage in his apartment recently. On inquiry patient said that he woke up out of a nightmare and punched a wall; he said another time he fell through a wall. Another time he was looking in the mirror, angry at himself and punched the mirror. Discussed history of manic type episodes but difficult to discern adequate details and he seems to say only last for about 2 days. Regarding medication management, patient says the Zyprexa 2.5 mg is helpful and he does not want to increase the dose. Patient was started on gabapentin for alcohol withdrawal which he says has been very calming for him and he would like to continue on this. Regarding alcohol abuse, reports he has been drinking for the past year; prior to this admission, he reports he was sober for 4 days and only drank for the past 2 days; denies any withdrawal symptoms; denies any history of withdrawal seizures. He smokes cannabis once a month but denies all other drug use. Impression: Patient is very vague about symptoms. Although patient is a limited historian, vague on details, Crisis report indicates he has a history of schizoaffective disorder; Long history of alcohol abuse and significant, recent damage to his apartment. It is possible he is now facing eviction. Given patient's reported history and complete loss of contact with all family members, it is unlikely that he has escaped traumatic experiences and probably has some amount of PTSD. At this time he is not willing to increase current antipsychotic medication. No symptoms withdrawal, not scoring on CIWA and reportedly only drinking for the past 2 days. Will however leave on gabapentin since it seems to help with anxiety and can help with alcohol cravings. Hospital course: 08/13: continue current management and treatment plan. 08/14: Suggested increase Olanzapine, or switch to Seroquel which he had taken in the past but patient refused. Also offered to switch Trazodone to Remeron. However he would like to continue Trazodone. 08/15 pt says overall doing much better; depression and anxiety both better. Remains vague on current AH but much more open in general saying they still come and go; can get confused by them wondering if it's his thoughts or voices...says was much worse in past. That said agrees that he's still having trouble managing himself and agrees he gets overwhelmed and that increase in Zyprexa might help. Curling Machine Operator reviewed risks/side/effects and pt agrees to increase; says whatever he was on in past causes such a side-effect that he's been wary of increasing meds now, but agrees to trial. 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 says needs more day structure; looking forward to football, being outside; yes to chief engineer drilling and recovery 08/16 feels overall improved; feels more calm, clear minded; tolerating increased Zyprexa. Pt says it's fair that he's getting evicted and grateful [facility] will give him another chance. He shares that he plans to go to [facility] respite who will help him possibly get into [facility] (dual diagnosis program; he must be in treatment and sober for 3 months) 08/17 pt reports he continues to do well, feeling much more calm and in good mood. Says sleeping well; No AVH. He is optimistic and hopeful about [facility] program. Pt is attending groups and remains in good behavioral and impulse control, appropriate with peers and staff. Pt is stable on current medication regimen. That said, news writer and team agree that he will do much better if he can discharge to stable environment and it's worth him remaining on unit for dispo planning. 08/18 Patient remains in good behavioral and impulse control, friendly, cooperative and polite and appropriate with peers and staff. Says he is doing good and overall feeling much better, more clear minded, calm. Denies any AVH. Patient feels he is benefitting from groups and is grateful for help received. He remains hopeful about getting into program -news writer discussed case with patient's outpatient provider Manpreet Taveras who agrees with current treatment plan 08/19 acknowledged continued AH but says much better on increased Zyprexa and now tolerable; does not want further increase and he remains in good behavioral and impulse control Pt is stable on current medication regimen and no changes warranted at this time. Plan: CV Q 15 minute checks Continue Zyprexa 5 mg daily Continue gabapentin 300 mg t.i.d. for anxiety and etoh cravings Gather collateral Patient educated on: diagnosis and medication risk/benefits Informed Consent: understands Reason for continued inpatient stay Substantial Risk for: med/psych decompensation Time Spent With Patient Time: Total time managing care of this patient today ____ minutes.
--- NOTE | 2023-08-21 13:04 | HO.PSYCHPN ---
Subjective Subjective Date of Service: 08/21/23 Reason For Visit: depressed/disorganized Subjective Notes: Conditional Voluntary Interim History: 28 yo with chronic psychotic disorder doing better closer to baseline, mostly closed off/guarded but enough open with one nurse to decide best to stay weekend than risk transition wednesday with meds/housing/program- eliminating one step can get his CHD worker to help him scrap picker medications and get where he needs to be. He currently denies si/hi/ah or s/e of medications. Slept ok and eating Medication Compliance: Yes Side effects from medications: No Attending Groups: Intermittent Review of Systems Acute medical concerns: No Medical Review of Systems: unchanged Mental Status Exam Mental Status Exam Patient Appearance: Appropriate Patient Orientation: Person, Place, Time and Situation Level of Consciousness: Awake Patient Behavior: Guarded and Passive Mood Description: Apprehensive Affect Description: Blunted Patient Cognition Impaired: No Ability to Follow Directions: Fair Speech Pattern: Clear Thought Process: Intact and Linear Thought Content: positive for Poverty of Content Depressive Symptoms: Muscle Tension Judgement: Fair Diagnostics Vital Signs (24Hr): Vital Signs - 24 hr 08/21/23 10:03 Temperature 97.3 F Pulse Rate 78 Respiratory Rate 18 Blood Pressure 134/70 Pulse Oximetry 98 Oxygen Delivery Method Room Air BMI result Body Mass Index 33.5 Labs 08/10/23 22:27 08/13/23 08:06 Medications Medications Current Medications Acetaminophen (Acetaminophen 325 Mg Tablet) 650 mg PO Q6H PRN PRN Reason: Headache/Pain Mild Scale (1-3) Al Hydroxide/Mg Hydroxide (Magnesium Hydrox/Alum Hydrox 30 Ml Oral.Susp) 30 ml PO Q6H PRN PRN Reason: Heartburn/Nausea Clonazepam (Clonazepam 0.5 Mg Tablet) 0.5 mg PO BID PRN PRN Reason: moderate anxiety Last Admin: 08/20/23 19:20 Dose: 0.5 mg Folic Acid (Folic Acid 1 Mg Tablet) 1 mg PO DAILY [facility] Last Admin: 08/21/23 09:02 Dose: 1 mg Gabapentin (Gabapentin 300 Mg Capsule) 300 mg PO TID [facility] Last Admin: 08/21/23 09:01 Dose: 300 mg Hydroxyzine HCl (Hydroxyzine Hcl 25 Mg Tablet) 25 mg PO Q6H PRN PRN Reason: Anxiety Last Admin: 08/19/23 21:22 Dose: 25 mg Magnesium Hydroxide (Milk Of Magnesia 30 Ml Oral.Susp) 30 ml PO DAILY PRN PRN Reason: Constipation Multivitamins/Vitamin C (Multivitamin Tablet) 1 tab PO DAILY [facility] Last Admin: 08/21/23 09:02 Dose: 1 tab Nicotine (Nicotine 21 Mg Patch.Td24) 21 mg TRANSDERMA DAILY PRN PRN Reason: smoking cessation Nicotine Polacrilex (Nicotine Polacrilex 2 Mg Gum) 4 mg BUCCAL Q2H PRN PRN Reason: Nicotine Cravings Olanzapine (Olanzapine 5 Mg Tablet) 5 mg PO TID PRN PRN Reason: agitation Olanzapine (Olanzapine 5 Mg Tablet) 5 mg PO DAILY [facility] Last Admin: 08/21/23 09:02 Dose: 5 mg Thiamine HCl (Thiamine Hcl 100 Mg Tablet) 100 mg PO DAILY [facility] Last Admin: 08/21/23 09:02 Dose: 100 mg Trazodone HCl (Trazodone Hcl 50 Mg Tablet) 50 mg PO BEDTIME PRN PRN Reason: Insomnia Last Admin: 08/20/23 22:25 Dose: 50 mg Allergies Allergies Allergy/AdvReac Type Severity Reaction Status Date / Time No Known Allergies Allergy Verified 08/10/23 21:47 [No Known Allergies*] Assessment & Plan Assessment & Plan (1) Schizoaffective disorder, bipolar type: Status: Acute Code(s): F25.0 - Schizoaffective disorder, bipolar type (2) Alcohol abuse: Status: Acute Code(s): F10.10 - Alcohol abuse, uncomplicated Plan Patient is a 28-year-old male with history auditory hallucinations, alcohol use disorder, anxiety/depression who presents for worsening depression and the face of continued alcoholism and minimal medication treatment. Patient reports that he has been feeling like he has had trouble feeling well over the past weeks. Patient said that he is gotten frustrated with himself for doing dumb things like talking out loud. Patient is vague on details but says he is in a cycle of feeling depressed for few days then feeling hyper for few days; he also says he is in a pattern of drinking alcohol heavily for about 4 days in a row and then is sober for 4 days in a row. Patient reports much anxiety but only mild depression. He says he used to struggle with auditory hallucinations a year ago but has not since and does not now. Crisis report says patient caused considerable damage in his apartment recently. On inquiry patient said that he woke up out of a nightmare and punched a wall; he said another time he fell through a wall. Another time he was looking in the mirror, angry at himself and punched the mirror. Discussed history of manic type episodes but difficult to discern adequate details and he seems to say only last for about 2 days. Regarding medication management, patient says the Zyprexa 2.5 mg is helpful and he does not want to increase the dose. Patient was started on gabapentin for alcohol withdrawal which he says has been very calming for him and he would like to continue on this. Regarding alcohol abuse, reports he has been drinking for the past year; prior to this admission, he reports he was sober for 4 days and only drank for the past 2 days; denies any withdrawal symptoms; denies any history of withdrawal seizures. He smokes cannabis once a month but denies all other drug use. Impression: Patient is very vague about symptoms. Although patient is a limited historian, vague on details, Crisis report indicates he has a history of schizoaffective disorder; Long history of alcohol abuse and significant, recent damage to his apartment. It is possible he is now facing eviction. Given patient's reported history and complete loss of contact with all family members, it is unlikely that he has escaped traumatic experiences and probably has some amount of PTSD. At this time he is not willing to increase current antipsychotic medication. No symptoms withdrawal, not scoring on CIWA and reportedly only drinking for the past 2 days. Will however leave on gabapentin since it seems to help with anxiety and can help with alcohol cravings. Hospital course: 08/13: continue current management and treatment plan. 08/14: Suggested increase Olanzapine, or switch to Seroquel which he had taken in the past but patient refused. Also offered to switch Trazodone to Remeron. However he would like to continue Trazodone. 08/15 pt says overall doing much better; depression and anxiety both better. Remains vague on current AH but much more open in general saying they still come and go; can get confused by them wondering if it's his thoughts or voices...says was much worse in past. That said agrees that he's still having trouble managing himself and agrees he gets overwhelmed and that increase in Zyprexa might help. Digital Media Planner reviewed risks/side/effects and pt agrees to increase; says whatever he was on in past causes such a side-effect that he's been wary of increasing meds now, but agrees to trial. 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 Pt says it's fair that he's getting evicted and grateful [facility] will give him another chance. He shares that he plans to go to [facility] respite who will help him possibly get into [facility] (dual diagnosis program; he must be in treatment and sober for 3 months) 08/17 pt reports he continues to do well, feeling much more calm and in good mood. Says sleeping well; No AVH. He is optimistic and hopeful about [facility] program. Pt is attending groups and remains in good behavioral and impulse control, appropriate with peers and staff. Pt is stable on current medication regimen. That said, health underwriter and team agree that he will do much better if he can discharge to stable environment and it's worth him remaining on unit for dispo planning. 08/18 Patient remains in good behavioral and impulse control, friendly, cooperative and polite and appropriate with peers and staff. Says he is doing good and overall feeling much better, more clear minded, calm. Denies any AVH. Patient feels he is benefitting from groups and is grateful for help received. He remains hopeful about getting into program -health underwriter discussed case with patient's outpatient provider Manpreet Taveras who agrees with current treatment plan 08/19 acknowledged continued AH but says much better on increased Zyprexa and now tolerable; does not want further increase and he remains in good behavioral and impulse control 08/21/23 - CTP Pt is stable on current medication regimen and no changes warranted at this time. Plan: CV Q 15 minute checks Continue Zyprexa 5 mg daily Continue gabapentin 300 mg t.i.d. for anxiety and etoh cravings Gather collateral Reason for continued inpatient stay Substantial Risk for: rapid decompensation Time Spent With Patient Time: Total time managing care of this patient today ____ minutes.
[2023-08-21] MEDS: clonazePAM 0.5 MG TABLET PO ×2 (13:32→22:14)
[2023-08-21 18:00] VITALS: BP 134/70; PULSE 91; TEMP 37; O2SAT 99
[2023-08-21] MEDS: traZODone HCL 50 MG TABLET PO (22:13)
[2023-08-22] MEDS: Thiamine HCL 100 MG TABLET PO (09:41)
[2023-08-22] MEDS: Multivitamin TABLET 1 TAB PO (09:41)
[2023-08-22] MEDS: Gabapentin 300 MG CAPSULE PO ×3 (09:41→21:00)
[2023-08-22] MEDS: Folic Acid 1 MG TABLET PO (09:41)
[2023-08-22] MEDS: OLANZapine 5 MG TABLET PO (09:41)
[2023-08-22 09:44] VITALS: BP 153/80; PULSE 75; RESP 18; TEMP 36.4; O2SAT 98
--- NOTE | 2023-08-22 12:48 | HO.PSYCHPN ---
Subjective Subjective Date of Service: 08/22/23 Reason For Visit: depressed/disorganized Subjective Notes: Conditional Voluntary Interim History: 28 yo anxious for dc - ally with nurse who helped him make decision to stay over weekend for better chance of sucessful dc planning- transition- but still anxious to get going- denies si/hi=- appears fairly closed off and distrusting- guarded- but answered all providers questions- Medication Compliance: Yes Side effects from medications: No Attending Groups: Intermittent Review of Systems Acute medical concerns: No Medical Review of Systems: unchanged Mental Status Exam Mental Status Exam Patient Appearance: Appropriate Patient Orientation: Person, Place, Time and Situation Level of Consciousness: Awake Patient Behavior: Guarded and Passive Mood Description: Apprehensive Affect Description: Blunted Patient Cognition Impaired: No Ability to Follow Directions: Fair Speech Pattern: Clear Thought Process: Intact and Linear Thought Content: positive for Poverty of Content Depressive Symptoms: Muscle Tension Judgement: Fair Diagnostics Vital Signs (24Hr): Vital Signs - 24 hr 08/21/23 18:00 08/22/23 09:44 Temperature 98.6 F 97.6 F Pulse Rate 91 75 Respiratory Rate 18 Blood Pressure 134/70 153/80 H Pulse Oximetry 99 98 Oxygen Delivery Method Nasal Cannula Room Air BMI result Body Mass Index 33.5 Labs 08/10/23 22:27 08/13/23 08:06 Medications Medications Current Medications Acetaminophen (Acetaminophen 325 Mg Tablet) 650 mg PO Q6H PRN PRN Reason: Headache/Pain Mild Scale (1-3) Al Hydroxide/Mg Hydroxide (Magnesium Hydrox/Alum Hydrox 30 Ml Oral.Susp) 30 ml PO Q6H PRN PRN Reason: Heartburn/Nausea Clonazepam (Clonazepam 0.5 Mg Tablet) 0.5 mg PO BID PRN PRN Reason: moderate anxiety Last Admin: 08/21/23 22:14 Dose: 0.5 mg Folic Acid (Folic Acid 1 Mg Tablet) 1 mg PO DAILY [facility] Last Admin: 08/22/23 09:41 Dose: 1 mg Gabapentin (Gabapentin 300 Mg Capsule) 300 mg PO TID [facility] Last Admin: 08/22/23 09:41 Dose: 300 mg Hydroxyzine HCl (Hydroxyzine Hcl 25 Mg Tablet) 25 mg PO Q6H PRN PRN Reason: Anxiety Last Admin: 08/19/23 21:22 Dose: 25 mg Magnesium Hydroxide (Milk Of Magnesia 30 Ml Oral.Susp) 30 ml PO DAILY PRN PRN Reason: Constipation Multivitamins/Vitamin C (Multivitamin Tablet) 1 tab PO DAILY [facility] Last Admin: 08/22/23 09:41 Dose: 1 tab Nicotine (Nicotine 21 Mg Patch.Td24) 21 mg TRANSDERMA DAILY PRN PRN Reason: smoking cessation Nicotine Polacrilex (Nicotine Polacrilex 2 Mg Gum) 4 mg BUCCAL Q2H PRN PRN Reason: Nicotine Cravings Olanzapine (Olanzapine 5 Mg Tablet) 5 mg PO TID PRN PRN Reason: agitation Olanzapine (Olanzapine 5 Mg Tablet) 5 mg PO DAILY [facility] Last Admin: 08/22/23 09:41 Dose: 5 mg Thiamine HCl (Thiamine Hcl 100 Mg Tablet) 100 mg PO DAILY [facility] Last Admin: 08/22/23 09:41 Dose: 100 mg Trazodone HCl (Trazodone Hcl 50 Mg Tablet) 50 mg PO BEDTIME PRN PRN Reason: Insomnia Last Admin: 08/21/23 22:13 Dose: 50 mg Allergies Allergies Allergy/AdvReac Type Severity Reaction Status Date / Time No Known Allergies Allergy Verified 08/10/23 21:47 [No Known Allergies*] Assessment & Plan Assessment & Plan (1) Schizoaffective disorder, bipolar type: Status: Acute Code(s): F25.0 - Schizoaffective disorder, bipolar type (2) Alcohol abuse: Status: Acute Code(s): F10.10 - Alcohol abuse, uncomplicated Plan Patient is a 28-year-old male with history auditory hallucinations, alcohol use disorder, anxiety/depression who presents for worsening depression and the face of continued alcoholism and minimal medication treatment. Patient reports that he has been feeling like he has had trouble feeling well over the past weeks. Patient said that he is gotten frustrated with himself for doing dumb things like talking out loud. Patient is vague on details but says he is in a cycle of feeling depressed for few days then feeling hyper for few days; he also says he is in a pattern of drinking alcohol heavily for about 4 days in a row and then is sober for 4 days in a row. Patient reports much anxiety but only mild depression. He says he used to struggle with auditory hallucinations a year ago but has not since and does not now. Crisis report says patient caused considerable damage in his apartment recently. On inquiry patient said that he woke up out of a nightmare and punched a wall; he said another time he fell through a wall. Another time he was looking in the mirror, angry at himself and punched the mirror. Discussed history of manic type episodes but difficult to discern adequate details and he seems to say only last for about 2 days. Regarding medication management, patient says the Zyprexa 2.5 mg is helpful and he does not want to increase the dose. Patient was started on gabapentin for alcohol withdrawal which he says has been very calming for him and he would like to continue on this. Regarding alcohol abuse, reports he has been drinking for the past year; prior to this admission, he reports he was sober for 4 days and only drank for the past 2 days; denies any withdrawal symptoms; denies any history of withdrawal seizures. He smokes cannabis once a month but denies all other drug use. Impression: Patient is very vague about symptoms. Although patient is a limited historian, vague on details, Crisis report indicates he has a history of schizoaffective disorder; Long history of alcohol abuse and significant, recent damage to his apartment. It is possible he is now facing eviction. Given patient's reported history and complete loss of contact with all family members, it is unlikely that he has escaped traumatic experiences and probably has some amount of PTSD. At this time he is not willing to increase current antipsychotic medication. No symptoms withdrawal, not scoring on CIWA and reportedly only drinking for the past 2 days. Will however leave on gabapentin since it seems to help with anxiety and can help with alcohol cravings. Hospital course: 08/13: continue current management and treatment plan. 08/14: Suggested increase Olanzapine, or switch to Seroquel which he had taken in the past but patient refused. Also offered to switch Trazodone to Remeron. However he would like to continue Trazodone. 08/15 pt says overall doing much better; depression and anxiety both better. Remains vague on current AH but much more open in general saying they still come and go; can get confused by them wondering if it's his thoughts or voices...says was much worse in past. That said agrees that he's still having trouble managing himself and agrees he gets overwhelmed and that increase in Zyprexa might help. Thermite Bomb Loader reviewed risks/side/effects and pt agrees to increase; says whatever he was on in past causes such a side-effect that he's been wary of increasing meds now, but agrees to trial. 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 says needs more day structure; looking forward to football, being outside; yes to recovery unit operator 08/16 feels overall improved; feels more calm, clear minded; tolerating increased Zyprexa. Pt says it's fair that he's getting evicted and grateful [facility] will give him another chance. He shares that he plans to go to [facility] respite who will help him possibly get into [facility] (dual diagnosis program; he must be in treatment and sober for 3 months) 08/17 pt reports he continues to do well, feeling much more calm and in good mood. Says sleeping well; No AVH. He is optimistic and hopeful about [facility] program. Pt is attending groups and remains in good behavioral and impulse control, appropriate with peers and staff. Pt is stable on current medication regimen. That said, administrative underwriter and team agree that he will do much better if he can discharge to stable environment and it's worth him remaining on unit for dispo planning. 08/18 Patient remains in good behavioral and impulse control, friendly, cooperative and polite and appropriate with peers and staff. Says he is doing good and overall feeling much better, more clear minded, calm. Denies any AVH. Patient feels he is benefitting from groups and is grateful for help received. He remains hopeful about getting into program -administrative underwriter discussed case with patient's outpatient provider Manpreet Taveras who agrees with current treatment plan 08/19 acknowledged continued AH but says much better on increased Zyprexa and now tolerable; does not want further increase and he remains in good behavioral and impulse control 08/21/23 - CTP 08/22/23 CTp pending dc Pt is stable on current medication regimen and no changes warranted at this time. Plan: CV Q 15 minute checks Continue Zyprexa 5 mg daily Continue gabapentin 300 mg t.i.d. for anxiety and etoh cravings Gather collateral Patient educated on: other (dc planning and follow through) Informed Consent: understands Reason for continued inpatient stay Substantial Risk for: rapid decompensation Time Spent With Patient Time: Total time managing care of this patient today ____ minutes.
[2023-08-22 18:00] VITALS: RESP 18
[2023-08-22] MEDS: clonazePAM 0.5 MG TABLET PO (18:42)
[2023-08-22] MEDS: hydrOXYzine HCL 25 MG TABLET PO (21:00)
[2023-08-22] MEDS: traZODone HCL 50 MG TABLET PO (21:00)
[2023-08-23] MEDS: OLANZapine 5 MG TABLET PO ×2 (00:35→09:44)
[2023-08-23] MEDS: traZODone HCL 50 MG TABLET PO (00:35)
[2023-08-23 08:00] VITALS: BP 128/93; PULSE 82; RESP 16; TEMP 36.9; O2SAT 100
[2023-08-23] MEDS: Folic Acid 1 MG TABLET PO (09:44)
[2023-08-23] MEDS: Gabapentin 300 MG CAPSULE PO (09:44)
[2023-08-23] MEDS: Thiamine HCL 100 MG TABLET PO (09:44)
[2023-08-23] MEDS: Multivitamin TABLET 1 TAB PO (09:44)
--- NOTE | 2023-08-23 10:38 | PM.PSYDC ---
DS: Providers Provider Date of Service: 08/23/23 Date of admission: 08/12/23 13:01 Date of discharge: 08/23/23 Primary care physician: Unknown Physician Attending physician on admission: Bahman Hudson Consults: 08/12/23 21:35 Addiction Medicine Routine Consulting Provider: Addiction Covering Reason for consultation: Etoh, Audit-C Alcohol sore of 4 Has provider been notified: No Attending physician on discharge: Bahman Hudson DS: Diagnosis Discharge Diagnosis (1) Schizoaffective disorder, bipolar type: Status: Acute (2) Alcohol abuse: Status: Acute DS: Medications Discharge Medications Home Medications: Previous Rx's Medication Instructions Recorded gabapentin 300 mg capsule 300 mg PO TID 30 days #90 caps 08/23/23 hydroxyzine HCl 25 mg tablet 25 mg PO QID PRN Anxiety 30 days 08/23/23 #90 tabs olanzapine 5 mg tablet 5 mg PO DAILY 30 days #30 tabs 08/23/23 trazodone 50 mg tablet 50 mg PO BEDTIME PRN Insomnia 30 08/23/23 days #30 tabs Mental Status Exam Mental Status Exam Narrative: Pt is alert and oriented; behavior is cooperative, calm, friendly; patient is not in distress; dressed in hospital attire with adequate hygiene; mood is described as good and affect brighter, more relaxed; eye contact appropriate; Speech is soft, low deep voice, normal prosody and not pressured; no psychomotor retardation present; thought process is organized and goal directed; Thought content is on aftercare plans; denies any paranoid ideations and none expressed; denies any SI/HI. Little to no AH. Patients insight and judgment fair. DS: Summary Hospital Course Hospital Course: HPI: Patient is a 28-year-old male with history auditory hallucinations, alcohol use disorder, anxiety/depression who presents for worsening depression and the face of continued alcoholism and minimal medication treatment. Patient reports that he has been feeling like he has had trouble feeling well over the past weeks. Patient said that he is gotten frustrated with himself for doing dumb things like talking out loud. Patient is vague on details but says he is in a cycle of feeling depressed for few days then feeling hyper for few days; he also says he is in a pattern of drinking alcohol heavily for about 4 days in a row and then is sober for 4 days in a row. Patient reports much anxiety but only mild depression. He says he used to struggle with auditory hallucinations a year ago but has not since and does not now. Crisis report says patient caused considerable damage in his apartment recently. On inquiry patient said that he woke up out of a nightmare and punched a wall; he said another time he fell through a wall. Another time he was looking in the mirror, angry at himself and punched the mirror. Discussed history of manic type episodes but difficult to discern adequate details and he seems to say only last for about 2 days. Regarding medication management, patient says the Zyprexa 2.5 mg is helpful and he does not want to increase the dose. Patient was started on gabapentin for alcohol withdrawal which he says has been very calming for him and he would like to continue on this. Regarding alcohol abuse, reports he has been drinking for the past year; prior to this admission, he reports he was sober for 4 days and only drank for the past 2 days; denies any withdrawal symptoms; denies any history of withdrawal seizures. He smokes cannabis once a month but denies all other drug use. Impression: Patient is very vague about symptoms. Although patient is a limited historian, vague on details, Crisis report indicates he has a history of schizoaffective disorder; Long history of alcohol abuse and significant, recent damage to his apartment; is now facing eviction. Given patient's reported history and complete loss of contact with all family members, it is unlikely that he has escaped traumatic experiences and probably has some amount of PTSD. Hospital course: pleasant, calm, polite on admission; guarded about psychotic symptoms; no etoh w/drawal He was started on Gabapentin initially for withdrawal but found it helpful for anxiety and since could help w/ etoh cravings, it was continued to good effect. At first pt did not want med changes and minimized AH; he later disclosed they were more bothersome than first reported and agreed to increase in Zyprexa to 5mg, which was well tolerated and reportedly significantly reduced AH down to whisper and not bothersome. He reproted good mood, much lower anxiety and felt ready for discharge. Working w/ [facility] staff to get him to respite (since being evicted) and then [facility] (dual diagnosis). He got a little anxious remaining on unit longer but able to cope with it. reported feels overall improved; feels more calm, clear minded; tolerating increased Zyprexa. Pt says it's fair that he's getting evicted and grateful [facility] will give him another chance....remained in good behavioral/impulse control, appropriate w/ peers and staff and sleeping at eating well, AH minimal. Electronic Typesetting Machine Operator discussed case with patient's outpatient provider Manpreet Taveras who agrees with current treatment plan. Pt asked for discharge to go to [facility] while waiting for [facility] or [facility]; outpt team agrees with plan. Pt is much improved and while he remains at risk for relapse or decompensation, this chronic struggle will not resolve w/ longer inpatient stay and he is not in imminent risk for harm to self or others. Request for dc honored. . Time spent discussing smoking cessation with patient: 3 to 10 minutes Status at Discharge Functional status at discharge: independent ambulation Overall status at discharge: patient is back to baseline Time Spent with Patient Time attestation: Total time managing care of this patient today __40__ minutes. Time spent: Greater than 30 minutes Discharge Plan Discharge Anticipated Discharge Date/Time: 08/23/23 11:30 Patient Disposition: Long Term Discharge Diagnosis: Schizoaffective disorder, bipolar type Referrals: [facility] [Other] - 1 Week (fax- [phone] Visiting nurse to re start at D/C. ) Physician,Unknown J [Primary Care Provider] - 1 Week Discharge Medications: New gabapentin 300 mg Capsule 300 mg PO TID 30 Days Qty: 90 0RF trazodone 50 mg Tablet 50 mg PO BEDTIME PRN (Reason: Insomnia) 30 Days Qty: 30 0RF Continued hydroxyzine HCl 25 mg tablet 25 mg PO QID PRN (Reason: Anxiety) 30 Days Qty: 90 0RF Changed olanzapine 5 mg tablet 5 mg PO DAILY 30 Days Qty: 30 0RF Discharge Orders: Discharge Order (Routine); Ordered 08/23/23 Ordered By: Bahman Hudson Diet: Regular diet Activity on Discharge: As tolerated Stand Alone Forms: Patient Portal Discharge page Care Plan Goals: Maintain mood and safe behaviors Take medications as prescribed Continue to pursue sobriety Practice coping skills Continue with outpatient providers and reach out to them as needed Health Concerns: Mood stability and behaviors Sobriety Plan of Treatment: Follow up with your PCP, psychiatric provider and other outpatient providers regarding above concerns Take medications as prescribed Assessment: Risk assessment at time of discharge:? Patient was interviewed prior to discharge and found to be fully oriented and without any SI or HI. Patient has improved insight and judgment and wants to continue treatment. Patient is not in imminent risk of harm to self or others and has a safety plan that includes presenting to the closest ER or calling 911 if feeling unsafe.? Patient has been observed closely by nursing and unit staff throughout admission; patient has not engaged in any behaviors that suggest dangerousness to self or others and has demonstrated appropriate behaviors and impulse control
== END 2023-08-23 11:52 | disposition home or self-care (01) | DRG 750 ==
LOC: HO.ED 23:12 → HO.PM5 08-12 13:12
PROVIDERS: Admitting Provider Psychiatry & Neurology Psychiatry; Emergency Provider Internal Medicine; Visit Provider Psychiatry & Neurology Psychiatry
DX: F25.0 Schizoaffective disorder, bipolar type (principal); F10.129 Alcohol abuse with intoxication, unspecified; Z20.822 Contact with and (suspected) exposure to COVID-19; Z87.891 Personal history of nicotine dependence; Y90.8 Blood alcohol level of 240 mg/100 ml or more; Z79.899 Other long term (current) drug therapy
CPT/HCPCS: 36415; 80053; 80061; 80143; 80179; 80307; 81001; 83036; 85025; 87635; 93005; 99285; S9485

== ENCOUNTER → 2023-08-12 09:55 | Outpatient (BNV) | payer MEDICAID, SELFPAY | PROVIDERS: Admitting Provider Psychiatry & Neurology Psychiatry; Emergency Provider Internal Medicine; Visit Provider Internal Medicine | DX: I45.81 Long QT syndrome (principal) | CPT/HCPCS: 93010 ==

== ENCOUNTER → 2023-08-12 13:01 | Outpatient (BNV) | payer OTHER, SELFPAY | PROVIDERS: Admitting Provider Psychiatry & Neurology Psychiatry; Emergency Provider Internal Medicine; Visit Provider Psychiatry & Neurology Psychiatry | DX: F25.0 Schizoaffective disorder, bipolar type (principal); F10.10 Alcohol abuse, uncomplicated | CPT/HCPCS: 99231; 99232 ==

== ENCOUNTER 2024-01-14 02:01 | Emergency (ER) | payer MEDICAID, SELFPAY ==
[2024-01-14 02:11] VITALS: BP 143/83; BP 163/90; PULSE 101; PULSE 95; RESP 18; TEMP 36.7; O2SAT 97; BMI 31.6
[2024-01-14] MEDS: LORazepam 1 MG TABLET 2 MG PO (02:41)
[2024-01-14] MEDS: traZODone HCL 50 MG TABLET PO (02:42)
--- NOTE | 2024-01-14 03:15 | ED_ITS ---
HPI - Psych General Chief Complaint: Psychiatric Symptoms Stated Complaint: CRISIS EVAL Time Seen by Provider: 01/14/24 02:37 Source: patient and EMS Mode of arrival: EMS Limitations: no limitations History of Present Illness ED Provider: jose enrique ARZATE Narrative: Patient's history of alcohol abuse came from [facility] intoxicated but patient denied any alcohol use feel very depressed rambling and argumentative on arrival denies any SI Related Data Home Medications ?Medication ?Instructions ?Recorded ?Confirmed clonidine HCl 0.1 mg PO BID 01/14/24 01/14/24 Previous Rx's ?Medication ?Instructions ?Recorded gabapentin 300 mg capsule 300 mg PO TID 30 days #90 caps 08/26/23 hydroxyzine HCl 25 mg tablet 25 mg PO QID PRN anxiety 30 days 08/26/23 #90 tabs olanzapine 5 mg tablet (Zyprexa) 5 mg PO DAILY 30 days #30 tabs 08/26/23 trazodone 50 mg tablet 50 mg PO BEDTIME PRN insomnia 30 10/28/23 days #30 tabs Allergies Allergy/AdvReac Type Severity Reaction Status Date / Time No Known Allergies Allergy Verified 01/14/24 02:18 [No Known Allergies*] Review of Systems Review of Systems: Yes all other systems are reviewed and are negative PMFSH Past Medical History Medical History Schizoaffective disorder, bipolar type Chronic schizophrenia No pertinent past medical history Social History Social History Household Members: None Housing: Apartment Do you presently have visiting nurse or other home services: Yes Unable to assess alcohol history related to: Refusing to respond Alcohol intake: never Patient Tobacco Use Status: Former Tobacco user e-Cigarette/Vaping Use: Never Used Second Hand Smoke Exposure: No Do you have a plan to hurt others: No Plan service: No Sexual orientation: Straight/Heterosexual Physical Exam Vital Signs: Vital Signs: Last Vital Signs Temp 98.1 F 01/14/24 02:11 Pulse 101 H 01/14/24 02:11 Resp 18 01/14/24 02:11 BP 143/83 H 01/14/24 02:11 Pulse Ox 97 01/14/24 02:11 O2 Del Method Room Air 01/14/24 02:11 BMI result Body Mass Index 31.6 Appearance: Alert. Oriented X3. No acute distress. ETOH+ Eyes: PERRLA, No Nystagmus ENT: Pharynx normal. Oral Mucosa moist Neck: Normal inspection. Neck supple. CVS: Normal heart rate and rhythm. Pulses normal. Respiratory: No respiratory distress. Equal air entry bilateral, no wheezing/rales/rhonchi Abdomen: Soft and nontender. Bowel sounds are present, no mass palpable, no CVA tenderness Skin: Skin warm and dry. Normal skin color. Normal skin turgor. Extremities: No lower extremity edema. No calf tenderness Neuro: Oriented X 3. No motor deficit. Medications Administered Discontinued Medications Generic Name Dose Route Start Last Admin Trade Name Freq PRN Reason Stop Dose Admin Lorazepam 2 mg 01/14/24 02:31 01/14/24 02:41 Lorazepam 1 Mg Tablet PO 01/14/24 02:32 2 mg ONCE ONE Administration Trazodone HCl 50 mg 01/14/24 02:31 01/14/24 02:42 Trazodone Hcl 50 Mg Tablet PO 01/14/24 02:32 50 mg ONCE ONE Administration Medical Decision Making Medical Decision Making [facility] Narrative: Patient's seems to intoxicated refusing to do the labs will re-evaluate in a.m. disposition pending re-evaluation Discharge Plan Discharge Clinical Impression: Alcohol abuse Patient Disposition: Still a Patient Prescriptions: No Action gabapentin 300 mg capsule 300 mg PO TID 30 Days Qty: 90 0RF hydroxyzine HCl 25 mg tablet 25 mg PO QID PRN (Reason: anxiety) 30 Days Qty: 90 0RF olanzapine [Zyprexa] 5 mg tablet 5 mg PO DAILY 30 Days Qty: 30 0RF trazodone 50 mg tablet 50 mg PO BEDTIME PRN (Reason: insomnia) 30 Days Qty: 30 2RF clonidine HCl 0.1 mg PO BID Interventions: [place]-Suicide Risk Severity Scale Last Done: 01/14/24 06:21 Print Language: Malaysian
--- NOTE | 2024-01-14 05:05 | MHC.EDTECH ---
Patient continues to refuse labs. RN aware
--- NOTE | 2024-01-14 05:52 | MHC.EDTECH ---
pt refusing lab draw and urine samples all night and wanted to remain in gym shorts upon changeover. per Marcelo from security the shorts are okay since the drawstring was removed. RN Keli aware. MHT Blanca as witness.
--- NOTE | 2024-01-14 08:17 | PC.NURSE ---
Resumed care of patient at 0700, he has been sleeping comfortably in bed. Care team aware he is refusing labs/urine. They are willing to see him without once he wakes up.
[2024-01-14 08:44] LABS: Appearance Urine Clear; Color Urine Yellow; Glucose Urine UA Negative (Negative); Leukocyte Esterase Urine Negative (Negative); Nitrite Urine Negative (Negative); PH 5.5 (5.0-9.0); Urine Blood Negative (Negative); Urine Ketones Trace mg/dL (Negative); Urine Protein Negative (Neg-Trace)
[2024-01-14 08:46] LABS: Bacteria Urine None Seen (None Seen); Hyaline Casts Urine 0-2 /LPF (0-2); RBC Urine 0-2 /HPF (0-2); Squamous Epithelial Cell Urine 0-2 /HPF (0-2); WBC Urine 0-5 /HPF (0-5)
[2024-01-14 09:12] LABS: Amphetamine Screen Urine Not Detected (Not Detect); Barbiturates, Urine Not Detected (Not Detect); Benzodiazepines Screen Urine Not Detected (Not Detect); Buprenorphine Scr Not Detected (Not Detect); Cannabinoid Screen Urine POSITIVE (Not Detect); Cocaine Screen Urine Not Detected (Not Detect); Methadone Screen, Urine Not Detected (Not Detect); Opiate Screen Urine Not Detected (Not Detect); Oxycodone Screen Urine Not Detected (Not Detect); Phencyclidine Screen Urine Not Detected (Not Detect)
[2024-01-14 09:17] LABS: Fentanyl, urine Not Detected (Not Detect)
--- NOTE | 2024-01-14 09:23 | PC.NURSE ---
This RN and mitchel talked with patient who wants respite care, pt needs to give bloodwork in order to go, pt is now in agreement to give labs, labwork [id number] at this time
[2024-01-14 09:40] LABS: MANUAL DIFF FLAG NO
[2024-01-14 09:42] LABS: Basophils Percent Auto 0.6 % (0-2); Eosinophils Absolute Auto 0.3 X10*3/uL (0.0-0.4); Eosinophils Percent Auto 4.9 % (0-4); Hematocrit 41.5 % (42.0-52.0); Hemoglobin 14.9 g/dl (14.0-18.0); Imm Gran Abs Auto 0.02 X10*3/uL (0.00-0.03); Imm Gran Pct Auto 0.3 % (0.0-0.4); Lymphocytes Absolute Auto 2.4 X10*3/uL (1.2-4.9); Mean Corpuscular HGB Conc 35.9 g/dl (31.0-36.0); Mean Corpuscular Hemoglobin 29.4 pg (27.0-33.0); Mean Corpuscular Volume 81.9 fL (80.0-98.0); Mean Platelet Volume 8.8 fL (9.4-12.4); Monocytes Absolute Auto 0.7 X10*3/uL (0.1-1.2); Monocytes Percent Auto 10.9 % (2-11); Neutrophils Absolute Auto 3.2 x10*3/uL (2.0-8.3); Neutrophils Percent Auto 47.3 % (45-73); Platelet Count 231 X10*3/uL (160-400); Red Blood Count 5.07 X10*6/uL (4.60-5.80); White Blood Count 6.7 X10*3/uL (4.8-10.8)
[2024-01-14 09:59] LABS: Alanine Aminotransferase 53 U/L (0-40); Albumin Level 4.4 g/dL (3.5-5.0); Alkaline Phosphatase 73 U/L (39-117); Anion Gap 13 (12-20); Aspartate Amino Transferase 30 U/L (5-37); Bilirubin Total 0.3 mg/dL (0.0-1.0); Blood Urea Nitrogen 12 mg/dL (9-16); Calcium 9.6 mg/dL (8.4-10.2); Carbon Dioxide 27 mmol/L (22-29); Chloride 109 mmol/L (96-108); Creatinine Clr Calc Pharmacy 100.5; Estimated Glomerular Filt Rate > 60; Ethanol 41 mg/dL; Glucose Random 108 mg/dL (60-115); Sodium 145 mmol/L (135-145); Total Protein 7.4 g/dL (6.5-8.0)
--- NOTE | 2024-01-14 12:24 | MHC.CARE ---
[facility] did not have any open male beds today. Pt does not meet higher level of care and will be discharged back to [facility]. Jazmín, digital program manager was informed.
[2024-01-14 12:36] VITALS: BP 135/86; PULSE 90; RESP 16; TEMP 36.8; O2SAT 97
== END 2024-01-14 12:37 | disposition other institution (70) ==
PROVIDERS: Emergency Provider Internal Medicine
DX: F10.10 Alcohol abuse, uncomplicated (principal); F32.A Depression, unspecified; R45.1 Restlessness and agitation; F25.0 Schizoaffective disorder, bipolar type; Z87.891 Personal history of nicotine dependence; Z79.899 Other long term (current) drug therapy
CPT/HCPCS: 36415; 80053; 80307; 81001; 85025; 99284; 99285; S9485

== ENCOUNTER 2024-03-11 23:37 | Inpatient (IN) | payer MEDICAID, OTHER, SELFPAY ==
--- NOTE | 2024-03-12 00:05 | ED_ITS ---
HPI - General Adult General Chief complaint: General Medical Stated complaint: ETOH, stable, request [facility], will not ans Q's? Time Seen by Provider: 03/11/24 23:57 Source: patient, RN notes reviewed and old records reviewed Mode of arrival: EMS Limitations: other (Not cooperative, patient endorses alcohol consumption) History of Present Illness ED Provider: Jessie ARZATE narrative: 28-year-old male with past medical history significant for schizoaffective disorder, alcohol abuse presents for evaluation of ?I want to get to [place]. ? And was reportedly refusing to answer questions for EMS personnel The patient states that he was trying to get to [place] to ?be a better version of myself. ? He tells me that he does not have any thoughts of harming himself or anybody else He is ?looking to get my life back on track. ? He denies any somatic complaints Related Data Home Medications ?Medication ?Instructions ?Recorded ?Confirmed clonidine HCl 0.1 mg PO BID 01/14/24 01/14/24 Previous Rx's ?Medication ?Instructions ?Recorded gabapentin 300 mg capsule 300 mg PO TID 30 days #90 caps 08/26/23 hydroxyzine HCl 25 mg tablet 25 mg PO QID PRN anxiety 30 days 08/26/23 #90 tabs olanzapine 5 mg tablet (Zyprexa) 5 mg PO DAILY 30 days #30 tabs 08/26/23 trazodone 50 mg tablet 50 mg PO BEDTIME PRN insomnia 30 10/28/23 days #30 tabs Allergies Allergy/AdvReac Type Severity Reaction Status Date / Time No Known Allergies Allergy Verified 03/12/24 00:22 [No Known Allergies*] Review of Systems Constitutional: Constitutional: Denies body ache(s), Denies chills, Denies fever(s) and Denies headache(s) ENT: Denies vertigo, Denies dizziness and Denies headache(s) Cardiovascular: Cardiovascular: Denies chest pain and Denies dyspnea Respiratory: Respiratory: Denies cough and Denies dyspnea Gastrointestinal: Gastrointestinal: Denies abdominal pain, Denies nausea and Denies vomiting Musculoskeletal: Musculoskeletal: Denies back pain Neurologic: Denies vertigo, Denies dizziness and Denies headache(s) Psychiatric: Psychiatric: Denies homicidal ideation and Denies suicidal ideation [facility] Past Medical History Medical History Schizoaffective disorder, bipolar type Chronic schizophrenia No pertinent past medical history Social History Social History Household Members: None Housing: Apartment Do you presently have visiting nurse or other home services: Yes Unable to assess alcohol history related to: Refusing to respond Alcohol intake: never Patient Tobacco Use Status: Former Tobacco user e-Cigarette/Vaping Use: Never Used Second Hand Smoke Exposure: No service: No Sexual orientation: Straight/Heterosexual Physical Exam ED Vital Signs: BMI result Body Mass Index 38.3 Const General: healthy appearing, comfortable, no acute distress, alert and awake Nutritional Appearance: well nourished Orientation/consciousness: patient oriented x3 HENMT Head: Yes normocephalic and Yes atraumatic Eyes Eyelids: Yes eyelids normal Conjunctivae: conjunctivae normal Sclerae: sclerae normal Corneas: corneas normal Pupils: Equal, round and reactive pupils present EOM: EOMs intact bilaterally Neck Neck: Yes full ROM Resp Effort & Inspection: normal respiratory effort, able to speak in complete sentences and not labored Skin General skin exam: elasticity normal Neuro General: patient oriented x3 Cranial nerves: Yes Equal, round and reactive pupils present and Yes Bilaterally intact EOM present Cognition (Neuro): normal cognition Extrem Other: Moving all extremities well without any obvious deformities Medical Decision Making Medical Decision Making MDM Narrative: 28-year-old male presents for evaluation of seeking help with getting my life back on track. ? Patient denies SI, HI. He does appear somewhat paranoid. The patient does have a history of schizoaffective disorder. Plan for care team evaluation once medically cleared pin the patient took a significant amount of time redirect the patient to follow procedures to be able to see the care team. Differential Diagnosis Differential Diagnoses: The differential diagnosis associated with the presentation includes Schizoaffective disorder Alcohol abuse Depression Psychosis Substance abuse Discharge Plan Discharge Clinical Impression: Schizoaffective disorder, bipolar type Patient Disposition: Still a Patient Prescriptions: No Action gabapentin 300 mg capsule 300 mg PO TID 30 Days Qty: 90 0RF hydroxyzine HCl 25 mg tablet 25 mg PO QID PRN (Reason: anxiety) 30 Days Qty: 90 0RF olanzapine [Zyprexa] 5 mg tablet 5 mg PO DAILY 30 Days Qty: 30 0RF trazodone 50 mg tablet 50 mg PO BEDTIME PRN (Reason: insomnia) 30 Days Qty: 30 2RF clonidine HCl 0.1 mg PO BID Print Language: Turkmen
[2024-03-12 00:19] VITALS: BMI 38.3
[2024-03-12 01:03] VITALS: BP 131/75; PULSE 97; RESP 18; TEMP 36.7; O2SAT 97
--- NOTE | 2024-03-12 01:15 | MHC.EDTECH ---
patient walking around the department and not following directions well. Patient was [facility].
[2024-03-12] MEDS: LORazepam 1 MG TABLET 2 MG PO (01:25)
--- NOTE | 2024-03-12 02:17 | PC.NURSE ---
This RN assumed care of pt after pt spoke with ALMA Yuan and decided he wanted to stay and be seen by care team to go to [place]. Pt reports he wants to get his life together and be the best version of himself. Pt belongings checked by security and put in closet on shelf. Pt multiple times required redirection, trying to walk around ED, went into bathroom ut left again, unsure of what he wants to do. Pt reports he had a couple of beers but denies any recreational drug use. Pt denies SI/HI. Pt doesn't always answer questions when asked and not cooperative all the time. Pt moved from 6hall to room 9 and he did not want to go, pt did allow this RN to eventually take vitals but refused labs d/t fel of needles and states I just need time . Pt did take off pants and shoes, in sweatpants and mohinder. Security took pt shoes and clothes. Kwabena MARQUEZ ordered 2mg ativan to help with pt anxiety, Pt took ativan and is currently in bed, restinng eyes closed, snoring, RR even and unlabored. Kwabena MARQUEZ ok that pt is not exchange architect at this time. product development scientist aware, will attempt to change pt over again when he wakes up and is more cooperative.
--- NOTE | 2024-03-12 02:37 | MHC.EDTECH ---
Addendum entered by Pauline Duncan 03/12/24 02:54: Locked in the closet on shelf 2 Original Note: This tech took over care of patient at 0200,patient is sleeping,belongings list completed,locked in the closet on shelf 3,will attempt lab work when patient is awake per RN and provider
[2024-03-12 03:33] VITALS: BP 119/71; PULSE 98; RESP 18; TEMP 36.7; O2SAT 98
--- NOTE | 2024-03-12 03:39 | MHC.EDTECH ---
Patient allowed this tech to draw his labs,patient is calm and cooperative at this time,gave patient 2 cups of gingerale,call anderson in reach
[2024-03-12 03:47] LABS: MANUAL DIFF FLAG NO
[2024-03-12 03:48] LABS: Basophils Absolute Auto 0.1 X10*3/uL (0.0-0.2); Basophils Percent Auto 0.6 % (0-2); Eosinophils Absolute Auto 0.3 X10*3/uL (0.0-0.4); Eosinophils Percent Auto 4.1 % (0-4); Hematocrit 41.9 % (42.0-52.0); Hemoglobin 14.9 g/dl (14.0-18.0); Imm Gran Abs Auto 0.04 X10*3/uL (0.00-0.03); Imm Gran Pct Auto 0.5 % (0.0-0.4); Lymphocytes Absolute Auto 3.5 X10*3/uL (1.2-4.9); Lymphocytes Percent Auto 43.9 % (20-40); Mean Corpuscular HGB Conc 35.6 g/dl (31.0-36.0); Mean Corpuscular Hemoglobin 29.2 pg (27.0-33.0); Mean Corpuscular Volume 82.2 fL (80.0-98.0); Monocytes Absolute Auto 0.7 X10*3/uL (0.1-1.2); Neutrophils Absolute Auto 3.3 x10*3/uL (2.0-8.3); Neutrophils Percent Auto 41.9 % (45-73); Platelet Count 259 X10*3/uL (160-400); Red Cell Distribution Width 13.3 % (11.0-16.0)
[2024-03-12 04:04] LABS: Alanine Aminotransferase 61 U/L (0-40); Albumin Level 4.7 g/dL (3.5-5.0); Alkaline Phosphatase 86 U/L (39-117); Anion Gap 18 (12-20); Aspartate Amino Transferase 67 U/L (5-37); Bilirubin Total 0.3 mg/dL (0.0-1.0); Blood Urea Nitrogen 12 mg/dL (9-16); Calcium 9.2 mg/dL (8.4-10.2); Carbon Dioxide 23 mmol/L (22-29); Chloride 106 mmol/L (96-108); Creatinine Clr Calc Pharmacy 104.5; Estimated Glomerular Filt Rate 56; Ethanol 139 mg/dL; Glucose Random 139 mg/dL (60-115); Potassium 3.9 mmol/L (3.3-5.1); Sodium 143 mmol/L (135-145); Total Protein 7.6 g/dL (6.5-8.0)
[2024-03-12 04:07] LABS: Acetaminophen LAB < 3 mcg/mL (<30); Salicylate < 5.0 mg/dL (15-30)
[2024-03-12 06:49] LABS: Amphetamine Screen Urine Not Detected (Not Detect); Barbiturates, Urine Not Detected (Not Detect); Benzodiazepines Screen Urine Not Detected (Not Detect); Buprenorphine Scr Not Detected (Not Detect); Cannabinoid Screen Urine POSITIVE (Not Detect); Cocaine Screen Urine Not Detected (Not Detect); Fentanyl, urine Not Detected (Not Detect); Methadone Screen, Urine Not Detected (Not Detect); Opiate Screen Urine Not Detected (Not Detect); Oxycodone Screen Urine Not Detected (Not Detect); Phencyclidine Screen Urine Not Detected (Not Detect)
--- NOTE | 2024-03-12 11:19 | MHC.CARE ---
Pt seen by CARE team and meets criteria for inpatient level of care, patient is agreeable to this level of care and ED provider Dr. Sow was notified and is in agreement with disposition, section 12 completed and placed in chart.
[2024-03-12 14:28] VITALS: BP 136/82; PULSE 77; RESP 18; TEMP 36.7; O2SAT 99
[2024-03-12 18:07] VITALS: BP 156/94; PULSE 78; RESP 18; TEMP 36.6; O2SAT 99
--- NOTE | 2024-03-12 21:04 | PC.NURSE ---
MD shea verbal read back order to order pt Hydroxyzine 50mg and Trazodone 100mg scheduled at bedtime
[2024-03-12] MEDS: hydrOXYzine HCL 50 MG TABLET PO (21:12)
[2024-03-12] MEDS: traZODone HCL 100 MG TABLET PO (21:12)
[2024-03-12 23:08] VITALS: BP 125/96; PULSE 74; RESP 18; TEMP 36.7; O2SAT 97
[2024-03-13 07:37] VITALS: BP 138/93; PULSE 75; RESP 20; TEMP 36.9; O2SAT 99
--- NOTE | 2024-03-13 09:02 | PHA.MEDREC ---
Pharmacy Consult ? Medication Reconciliation Pharmacy has completed the medication reconciliation. Spoke with patient who was able to recall his medications and frequencies.
[2024-03-13] MEDS: Naltrexone HCl 50 MG TABLET PO (11:06)
[2024-03-13 11:29] LABS: Appearance Urine Clear; Color Urine Yellow; Glucose Urine UA Negative (Negative); Leukocyte Esterase Urine Negative (Negative); Nitrite Urine Negative (Negative); PH 7.5 (5.0-9.0); Specific Gravity - Urine 1.015 (1.005-1.025); Urine Blood Negative (Negative); Urine Ketones Negative (Negative); Urine Protein Negative (Neg-Trace)
[2024-03-13 15:15] VITALS: BP 156/89; PULSE 67; TEMP 36.9; O2SAT 99; BMI 38.2
--- NOTE | 2024-03-13 18:16 | PC.ADMIT ---
Addendum entered by Alisha Pro RN 03/13/24 19:16: Prior to getting kicked out of the Rehab ([facility]), Mr. Blank reports being sober x 5 months. Original Note: Mr. Jefe Blank was admitted to room 507-1 from our Emergency Room at 2:55pm. Per KEYONA Vincent in the ER, he came to the ER via ambulance on 03/11 at approximately 23:00, with a diagnosis of psychosis and a history of schizoaffective disorder, bipolar type and current paranoid ideation. Upon arrival on the unit, a skin/ safety check was completed and was unremarkable. He signed a CV and was placed on 15 minute checks. Tox screen positive for cannabis. Per the admission assessment with this life underwriter, the patient endorses depression and recent substance use after being kicked out of [facility] in [place] after being suspected by staff to be drinking which he vehemently denies. He does, however, admit to vaping cannabis, drinking 1 beer and 3 nips on Wednesday night after being kicked out. He denied SI/ and H to this life underwriter and admitted to a distant history of auditory hallucinations but none for years. He is On a CIWA q 4 hours and scored a 0 at 4pm. He denies allergies and declined the flu vaccine. He is a former smoker and does not want or need nicotine replacement. He was cooperative with the admission process, soft spoken and sometimes difficult to hear but made good eye contact and was very respectful.
[2024-03-13 19:56] VITALS: BP 144/79; PULSE 88; RESP 16; TEMP 36.6; O2SAT 100
[2024-03-13] MEDS: hydrOXYzine HCL 50 MG TABLET PO (20:05)
[2024-03-13] MEDS: traZODone HCL 100 MG TABLET PO (20:05)
[2024-03-13] MEDS: OLANZapine 2.5 MG TABLET PO (20:05)
[2024-03-14 08:12] VITALS: BP 126/77; PULSE 94; RESP 16; TEMP 36.9; O2SAT 99
[2024-03-14] MEDS: Folic Acid 1 MG TABLET PO (08:37)
[2024-03-14] MEDS: Thiamine HCL 100 MG TABLET PO (08:37)
[2024-03-14] MEDS: Naltrexone HCl 50 MG TABLET PO (08:37)
--- NOTE | 2024-03-14 08:59 | HO.PSYADMNOT ---
HPI Date of Service: 03/14/24 Chief Complaint: pyschotic Sources of Information: patient interviewed, chart reviewed and crisis/core team assessment reviewed HPI Subjective Notes: [place] Warning, Conditional Voluntary and 3 Day Narrative: pt is a 28 yo male with hx of schizoaffective disorder, history of alcohol abuse, who presents following being discharged from [facility] accused of drinking while being there being verbally aggressive. Patient reports that he has remained on Zyprexa which he mostly takes regularly, sometimes skipping a night here and there. He says that this past week he got into a verbal debate with a staff person, saying he was careful to not raise his voice, not say any so wears but just trying to express his thoughts. Reports that she called the police, accused him of drinking alcohol and that he needed to leave the premises. He adamantly denies that he had been drinking any alcohol at all; says the police also told the staff person he did not appear to be intoxicated and challenged the decision but ultimately patient was discharged from [facility]. Patient said he wandered around that night having no where to go; he did drink alcohol that next day and self presented to the hospital. Patient reports that a few weeks ago he had another contentious interaction with a staff member whom he said was provoking him. Patient denies any AVH, denies any SI or HI or substance abuse other than the day after he left the senior living. He says he likes most of the staff members and that they are great... But feels singled out by a few and ultimately feels they really do not want me there. He is unsure what to do. Patient agrees to continue with Zyprexa Past Psychiatric History: Psych admission [facility] 07/2023 Patient reports Last psychiatric hospitalization 7 years ago Medical Evaluation Reviewed: Yes [facility] Medical History (Updated 03/14/24 @ 15:04 by Bahman Hudson MD) Alcohol use disorder Schizoaffective disorder, bipolar type Chronic schizophrenia No pertinent past medical history Family History: Denies any knowledge of Social History: Currently has been living in [facility] for past 7 months. 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 [place] where he did some college but says his anxiety got to be too much, he did not finish college and ended up homeless and in shelters for the next 10 years Reports he is estranged from his biological family and has no contact with them Substance History: alcohol abuse disorder Trauma History: Denies Diagnostics Vital Signs (24Hr): Vital Signs - 24 hr 03/13/24 15:15 03/13/24 19:56 03/14/24 08:12 Temperature 98.4 F 97.8 F 98.5 F Pulse Rate 67 88 94 Respiratory Rate 16 16 Blood Pressure 156/89 H 144/79 H 126/77 Pulse Oximetry 99 100 99 Oxygen Delivery Method Room Air Room Air Room Air BMI result Body Mass Index 38.2 Labs 03/12/24 03:38 03/12/24 03:38 Labs: Laboratory Results - last 48 hr 03/13/24 11:23 Urine Color Yellow Urine Appearance Clear Urine pH 7.5 Ur Specific [place] 1.015 Urine Protein Negative Urine Glucose (UA) Negative Urine Ketones Negative Urine Blood Negative Urine Nitrite Negative Ur Leukocyte Esterase Negative Meds/Allergies Meds Home Medications ?Medication ?Instructions ?Recorded ?Confirmed ?Type hydroxyzine HCl 25 mg tablet 50 mg PO QID PRN anxiety 03/12/24 03/12/24 History trazodone 50 mg tablet 100 mg PO BEDTIME PRN insomnia 03/12/24 03/12/24 History naltrexone 50 mg tablet 50 mg PO DAILY 03/13/24 03/13/24 History olanzapine 2.5 mg tablet 2.5 mg PO BEDTIME 03/13/24 03/13/24 History Allergies Allergies Allergy/AdvReac Type Severity Reaction Status Date / Time No Known Allergies Allergy Verified 03/12/24 00:22 [No Known Allergies*] Mental Status Exam Mental Status Exam Narrative: Pt is alert and oriented; behavior is cooperative, calm, friendly on approach; patient is not in distress; dressed in hospital attire with adequate hygiene, wearing scarf on head; mood is described as ok and affect a constricted; eye contact appropriate; Speech is soft, low deep voice, normal prosody and not pressured; some psychomotor retardation present; thought process is organized and goal directed; Thought content is on dealing with stress of living situation; denies any paranoid ideations and none expressed; denies any SI/HI. Denies current AVH Patients insight and judgment impaired. Assessment & Plan Assessment & Plan (1) Schizoaffective disorder, bipolar type: Status: Acute Code(s): F25.0 - Schizoaffective disorder, bipolar type (2) Alcohol use disorder: Status: Acute Code(s): F10.90 - Alcohol use, unspecified, uncomplicated Plan pt is a 28 yo male with hx of schizoaffective disorder, history of alcohol abuse, who presents following being discharged from [facility] accused of drinking while being there being verbally aggressive. Patient reports that he has remained on Zyprexa which he mostly takes regularly, sometimes skipping a night here and there. He says that this past week he got into a verbal debate with a staff person, saying he was careful to not raise his voice, not say any so wears but just trying to express his thoughts. Reports that she called the police, accused him of drinking alcohol and that he needed to leave the premises. He adamantly denies that he had been drinking any alcohol at all; says the police also told the staff person he did not appear to be intoxicated and challenged the decision but ultimately patient was discharged from [facility]. Patient said he wandered around that night having no where to go; he did drink alcohol that next day and self presented to the hospital. Patient reports that a few weeks ago he had another contentious interaction with a staff member whom he said was provoking him. Patient denies any AVH, denies any SI or HI or substance abuse other than the day after he left the senior living. He says he likes most of the staff members and that they are great... But feels singled out by a few and ultimately feels they really do not want me there. He is unsure what to do. Patient agrees to continue with Zyprexa Clinical reasoning/formulation; Not clear exactly what occurred at senior living; patient reports history of verbal altercations with police having been called twice in the past several weeks with comments that patient has been intimidating. Will need collateral to better assess PLAN: CV Q 15 minute checks Continue/Restart Zyprexa 5 mg q.h.s. Trazodone p.r.n. Get collateral Patient educated on: diagnosis, medication risk/benefits, substance abuse and therapeutic strategies Informed Consent: understands Reason for continued inpatient stay Substantial Risk for: rapid decompensation Statement Statement: I have reviewed the history and physical and performed a pertinent examination on my patient. No changes have occurred unless specified. If the History and Physical was not performed prior to admission, the Hospitalist's service will be consulted for completing the admission physical. Time Spent With Patient Time: Total time managing care of this patient today ____ minutes.
--- NOTE | 2024-03-14 10:47 | PC.NURSE ---
signed 3 day on 03/14/2024, up on 03/17/2024.
[2024-03-14 20:00] VITALS: BP 137/78; PULSE 89; RESP 16; TEMP 36.4; O2SAT 100
[2024-03-14] MEDS: traZODone HCL 100 MG TABLET PO (21:00)
[2024-03-14] MEDS: hydrOXYzine HCL 50 MG TABLET PO (21:00)
[2024-03-14] MEDS: OLANZapine 5 MG TABLET PO (21:00)
[2024-03-15 08:08] VITALS: BP 144/63; PULSE 86; RESP 16; TEMP 36.4; O2SAT 98
[2024-03-15] MEDS: Naltrexone HCl 50 MG TABLET PO (08:39)
[2024-03-15] MEDS: Thiamine HCL 100 MG TABLET PO (08:39)
[2024-03-15] MEDS: Folic Acid 1 MG TABLET PO (08:40)
--- NOTE | 2024-03-15 10:04 | HO.PSYCHPN ---
Subjective Subjective Date of Service: 03/15/24 Reason For Visit: pyschotic Interim History: Met with patient; discussed with team Patient continues to report that he is doing well; sleeping and eating well, denies psychiatric symptoms. Patient remains very frustrated with correction that discharged him on a Wednesday night with no where to go. He feels hurt by that decision and even though he is offered a chance to return, does not want to go. Initially he was ambivalent but has decided that they really do not care about him all that much and he rather just figure out where to live on his own. Patient also has a job that he very much wants to keep and does not want to miss any shifts due to being in the hospital. dc CIWA; only drinking for 1 day dc Naltrexone; patient says does not need, does not help Mental Status Exam Mental Status Exam Narrative: Pt is alert and oriented; behavior is cooperative, calm, friendly on approach; patient is not in distress; dressed in casual attire with adequate hygiene, wearing scarf on head; mood is described as ok and affect a constricted; eye contact appropriate; Speech is soft, low deep voice, normal prosody and not pressured; no psychomotor retardation present; thought process is organized and goal directed; Thought content is on dealing with stress of living situation; denies any paranoid ideations and none expressed; denies any SI/HI. Denies current [facility] Patients insight and judgment impaired but at baseline and adequate. Diagnostics Vital Signs (24Hr): Vital Signs - 24 hr 03/14/24 20:00 03/15/24 08:08 Temperature 97.6 F 97.6 F Pulse Rate 89 86 Respiratory Rate 16 16 Blood Pressure 137/78 144/63 H Pulse Oximetry 100 98 Oxygen Delivery Method Room Air Room Air BMI result Body Mass Index 38.2 Labs 03/12/24 03:38 03/12/24 03:38 Labs: Laboratory Results - last 48 hr 03/13/24 11:23 Urine Color Yellow Urine Appearance Clear Urine pH 7.5 Ur Specific [place] 1.015 Urine Protein Negative Urine Glucose (UA) Negative Urine Ketones Negative Urine Blood Negative Urine Nitrite Negative Ur Leukocyte Esterase Negative Medications Medications Current Medications Acetaminophen (Acetaminophen 325 Mg Tablet) 650 mg PO Q6H PRN PRN Reason: Headache/Pain Mild Scale (1-3) Al Hydroxide/Mg Hydroxide (Magnesium Hydrox/Alum Hydrox 30 Ml Oral.Susp) 30 ml PO Q6H PRN PRN Reason: Heartburn/Nausea Folic Acid (Folic Acid 1 Mg Tablet) 1 mg PO DAILY [facility] Last Admin: 03/15/24 08:40 Dose: 1 mg Hydroxyzine HCl (Hydroxyzine Hcl 50 Mg Tablet) 50 mg PO QID PRN PRN Reason: anxiety Last Admin: 03/14/24 21:00 Dose: 50 mg Lorazepam (Lorazepam 1 Mg Tablet) 2 mg PO Q2H PRN PRN Reason: CIWA 11 and above Lorazepam (Lorazepam 1 Mg Tablet) 1 mg PO Q2H PRN PRN Reason: CIWA 6-10 Magnesium Hydroxide (Milk Of Magnesia 30 Ml Oral.Susp) 30 ml PO DAILY PRN PRN Reason: Constipation Naltrexone HCl (Naltrexone Hcl 50 Mg Tablet) 50 mg PO DAILY [facility] Last Admin: 03/15/24 08:39 Dose: 50 mg Nicotine (Nicotine 21 Mg Patch.Td24) 21 mg TRANSDERMA DAILY PRN PRN Reason: smoking cessation Nicotine Polacrilex (Nicotine Polacrilex 2 Mg Gum) 4 mg BUCCAL Q2H PRN PRN Reason: Nicotine Cravings Olanzapine (Olanzapine 5 Mg Tablet) 5 mg PO TID PRN PRN Reason: agitation Olanzapine (Olanzapine 5 Mg Tablet) 5 mg PO BEDTIME [facility] Last Admin: 03/14/24 21:00 Dose: 5 mg Thiamine HCl (Thiamine Hcl 100 Mg Tablet) 100 mg PO DAILY [facility] Last Admin: 03/15/24 08:39 Dose: 100 mg Trazodone HCl (Trazodone Hcl 100 Mg Tablet) 100 mg PO BEDTIME PRN PRN Reason: insomnia Last Admin: 03/14/24 21:00 Dose: 100 mg Allergies Allergies Allergy/AdvReac Type Severity Reaction Status Date / Time No Known Allergies Allergy Verified 03/12/24 00:22 [No Known Allergies*] Assessment & Plan Assessment & Plan (1) Schizoaffective disorder, bipolar type: Status: Acute Code(s): F25.0 - Schizoaffective disorder, bipolar type (2) Alcohol use disorder: Status: Acute Code(s): F10.90 - Alcohol use, unspecified, uncomplicated Plan pt is a 28 yo male with hx of schizoaffective disorder, history of alcohol abuse, who presents following being discharged from [facility] accused of drinking while being there being verbally aggressive. Patient reports that he has remained on Zyprexa which he mostly takes regularly, sometimes skipping a night here and there. He says that this past week he got into a verbal debate with a staff person, saying he was careful to not raise his voice, not say any so wears but just trying to express his thoughts. Reports that she called the police, accused him of drinking alcohol and that he needed to leave the premises. He adamantly denies that he had been drinking any alcohol at all; says the police also told the staff person he did not appear to be intoxicated and challenged the decision but ultimately patient was discharged from [facility]. Patient said he wandered around that night having no where to go; he did drink alcohol that next day and self presented to the hospital. Patient reports that a few weeks ago he had another contentious interaction with a staff member whom he said was provoking him. Patient denies any AVH, denies any SI or HI or substance abuse other than the day after he left the correction. He says he likes most of the staff members and that they are great... But feels singled out by a few and ultimately feels they really do not want me there. He is unsure what to do. Patient agrees to continue with Zyprexa Clinical reasoning/formulation; Not clear exactly what occurred at correction; patient reports history of verbal altercations with police having been called twice in the past several weeks with comments that patient has been intimidating. Will need collateral to better assess Hospital course: 03/15 Patient continues to report that he is doing well; sleeping and eating well, denies psychiatric symptoms. Patient remains very frustrated with correction that discharged him on a Wednesday night with no where to go. He feels hurt by that decision and even though he is offered a chance to return, does not want to go. Initially he was ambivalent but has decided that they really do not care about him all that much and he rather just figure out where to live on his own. Patient also has a job that he very much wants to keep and does not want to miss any shifts due to being in the hospital. dc CIWA; only drinking for 1 day dc Naltrexone; patient says does not need, does not help Impression: Patient appears to be at baseline and thus far he has been in good behavioral and impulse control on the unit. Patient has had interpersonal struggles with staff in the past and this is a chronic issue. However he is not in imminent risk for harm to self or others. He agrees to remain until Wednesday which contract writer thinks is a good idea since he has got no where else to go and it is good for him to get continued doses of medication to help him remain stable PLAN: Three day notice Q 15 minute checks Continue/Restart Zyprexa 5 mg q.h.s. Trazodone p.r.n. Get collateral Patient educated on: diagnosis, medication risk/benefits and therapeutic strategies Informed Consent: understands Reason for continued inpatient stay Substantial Risk for: stable for discharge and rapid decompensation Time Spent With Patient Time: Total time managing care of this patient today ____ minutes.
[2024-03-15] MEDS: traZODone HCL 100 MG TABLET PO (20:43)
[2024-03-15] MEDS: OLANZapine 5 MG TABLET PO ×2 (20:43)
[2024-03-15] MEDS: hydrOXYzine HCL 50 MG TABLET PO (20:43)
[2024-03-16 08:00] VITALS: RESP 18
[2024-03-16] MEDS: Thiamine HCL 100 MG TABLET PO (08:25)
[2024-03-16] MEDS: Folic Acid 1 MG TABLET PO (08:25)
--- NOTE | 2024-03-16 13:18 | P.PNPSI_ITS ---
Subjective Subjective Date of Service: 03/16/24 Reason For Visit: pyschotic Subjective Notes: 3 Day Interim History: Reviewed with Dr. Hutchins. Patient reports feeling good ; he reports looking forward to leaving tomorrow. pt denies any issues at this time. He reports sleeping well. Medication Compliance: Yes Side effects from medications: No Review of Systems Constitutional: Reports as per HPI Eyes: Reports as per HPI Reports as per HPI Cardiovascular: Reports as per HPI Respiratory: Reports as per HPI Gastrointestinal: Reports as per HPI Genitourinary: Reports as per HPI Musculoskeletal: Reports as per HPI Skin/Breast: Reports as per HPI Reports as per HPI Psychiatric: Reports as per HPI Endocrine: Reports as per HPI Hematologic/Lymphatic: Reports as per HPI Allergic/Immunologic: Reports as per HPI Mental Status Exam Mental Status Exam Patient Appearance: Well Grooomed Patient Orientation: Person, Place and Time Level of Consciousness: Awake and Alert Patient Behavior: Appropriate and Cooperative Mood Description: Calm Affect Description: Calm Ability to Follow Directions: Good Speech Pattern: Clear and Appropriate Thought Process: Intact Thought Content: positive for Intact and positive for Goal Oriented Diagnostics Vital Signs (24Hr): Vital Signs - 24 hr 03/16/24 08:00 Respiratory Rate 18 BMI result Body Mass Index 38.2 Labs 03/12/24 03:38 03/12/24 03:38 Medications Medications Current Medications Acetaminophen (Acetaminophen 325 Mg Tablet) 650 mg PO Q6H PRN PRN Reason: Headache/Pain Mild Scale (1-3) Al Hydroxide/Mg Hydroxide (Magnesium Hydrox/Alum Hydrox 30 Ml Oral.Susp) 30 ml PO Q6H PRN PRN Reason: Heartburn/Nausea Folic Acid (Folic Acid 1 Mg Tablet) 1 mg PO DAILY [facility] Last Admin: 03/16/24 08:25 Dose: 1 mg Hydroxyzine HCl (Hydroxyzine Hcl 50 Mg Tablet) 50 mg PO QID PRN PRN Reason: anxiety Last Admin: 03/15/24 20:43 Dose: 50 mg Magnesium Hydroxide (Milk Of Magnesia 30 Ml Oral.Susp) 30 ml PO DAILY PRN PRN Reason: Constipation Nicotine (Nicotine 21 Mg Patch.Td24) 21 mg TRANSDERMA DAILY PRN PRN Reason: smoking cessation Nicotine Polacrilex (Nicotine Polacrilex 2 Mg Gum) 4 mg BUCCAL Q2H PRN PRN Reason: Nicotine Cravings Olanzapine (Olanzapine 5 Mg Tablet) 5 mg PO TID PRN PRN Reason: agitation Last Admin: 03/15/24 20:43 Dose: 5 mg Olanzapine (Olanzapine 5 Mg Tablet) 5 mg PO BEDTIME [facility] Last Admin: 03/15/24 20:43 Dose: 5 mg Thiamine HCl (Thiamine Hcl 100 Mg Tablet) 100 mg PO DAILY [facility] Last Admin: 03/16/24 08:25 Dose: 100 mg Trazodone HCl (Trazodone Hcl 100 Mg Tablet) 100 mg PO BEDTIME PRN PRN Reason: insomnia Last Admin: 03/15/24 20:43 Dose: 100 mg Allergies Allergies Allergy/AdvReac Type Severity Reaction Status Date / Time No Known Allergies Allergy Verified 03/12/24 00:22 [No Known Allergies*] Assessment & Plan Assessment & Plan (1) Schizoaffective disorder, bipolar type: Status: Acute Code(s): F25.0 - Schizoaffective disorder, bipolar type (2) Alcohol use disorder: Status: Acute Code(s): F10.90 - Alcohol use, unspecified, uncomplicated Plan pt is a 28 yo male with hx of schizoaffective disorder, history of alcohol abuse, who presents following being discharged from [facility] accused of drinking while being there being verbally aggressive. Patient reports that he has remained on Zyprexa which he mostly takes regularly, sometimes skipping a night here and there. He says that this past week he got into a verbal debate with a staff person, saying he was careful to not raise his voice, not say any so wears but just trying to express his thoughts. Reports that she called the police, accused him of drinking alcohol and that he needed to leave the premises. He adamantly denies that he had been drinking any alcohol at all; says the police also told the staff person he did not appear to be intoxicated and challenged the decision but ultimately patient was discharged from [facility]. Patient said he wandered around that night having no where to go; he did drink alcohol that next day and self presented to the hospital. Patient reports that a few weeks ago he had another contentious interaction with a staff member whom he said was provoking him. Patient denies any AVH, denies any SI or HI or substance abuse other than the day [facility] the [facility]. He says he likes most of the staff members and that they are great... But feels singled out by a few and ultimately feels they really do not want me there. He is unsure what to do. Patient agrees to continue with Zyprexa Clinical reasoning/formulation; Not clear exactly what occurred at [facility]; patient reports history of verbal altercations with police having been called twice in the past several weeks with comments that patient has been intimidating. Will need collateral to better assess Hospital course: 03/15 Patient continues to report that he is doing well; sleeping and eating well, denies psychiatric symptoms. Patient remains very frustrated with [facility] that discharged him on a Wednesday night with no where to go. He feels hurt by that decision and even though he is offered a chance to return, does not want to go. Initially he was ambivalent but has decided that they really do not care about him all that much and he rather just figure out where to live on his own. Patient also has a job that he very much wants to keep and does not want to miss any shifts due to being in the hospital. dc CIWA; only drinking for 1 day dc Naltrexone; patient says does not need, does not help 03/06: continue current tx plan. Impression: Patient appears to be at baseline and thus far he has been in good behavioral and impulse control on the unit. Patient has had interpersonal struggles with staff in the past and this is a chronic issue. However he is not in imminent risk for harm to self or others. He agrees to remain until Wednesday which keno writer/runner thinks is a good idea since he has got no where else to go and it is good for him to get continued doses of medication to help him remain stable PLAN: Three day notice Q 15 minute checks Continue/Restart Zyprexa 5 mg q.h.s. Trazodone p.r.n. Get collateral Patient educated on: diagnosis and medication risk/benefits Reason for continued inpatient stay Substantial Risk for: med/psych decompensation Time Spent With Patient Time: Total time managing care of this patient today _20___ minutes.
[2024-03-16 20:00] VITALS: BP 130/80; PULSE 106; RESP 18; TEMP 36.9; O2SAT 98
[2024-03-16] MEDS: hydrOXYzine HCL 50 MG TABLET PO (21:10)
[2024-03-16] MEDS: OLANZapine 5 MG TABLET PO (21:10)
[2024-03-16] MEDS: traZODone HCL 100 MG TABLET PO (21:10)
[2024-03-17 08:16] VITALS: BP 153/84; PULSE 93; TEMP 36.4; O2SAT 97
--- NOTE | 2024-03-17 08:47 | P.DS_ITS ---
DS: Providers Provider Date of Service: 03/17/24 Date of admission: 03/13/24 12:10 Date of discharge: 03/17/24 Primary care physician: Unknown Physician Attending physician on admission: Bahman Hudson Attending physician on discharge: Bahman Hudson DS: Diagnosis Discharge Diagnosis (1) Schizoaffective disorder, bipolar type: Status: Acute (2) Alcohol use disorder: Status: Acute DS: Medications Discharge Medications Home Medications: Previous Rx's ?Medication ?Instructions ?Recorded hydroxyzine HCl 50 mg tablet 50 mg PO QID PRN anxiety 30 days 03/16/24 #90 tabs olanzapine 5 mg tablet See Rx Instructions .Route 03/16/24 .COMPLEX 30 days #30 tabs trazodone 100 mg tablet 100 mg PO BEDTIME PRN insomnia 30 03/16/24 days #30 tabs Mental Status Exam Mental Status Exam Narrative: Pt is alert and oriented; behavior is cooperative, calm, friendly on approach; patient is not in distress; dressed in casual attire with adequate hygiene, wearing scarf on head; mood is described as ok and affect a constricted; eye contact appropriate; Speech is soft, low deep voice, normal prosody and not pressured; no psychomotor retardation present; thought process is organized and goal directed; Thought content is on dealing with stress of living situation; denies any paranoid ideations and none expressed; denies any SI/HI. Denies current AVH Patients insight and judgment impaired but at baseline and adequate. Data Data Completed and Pending Completed studies during hospitalization [Text1]: 03/12/24 03/12/24 03/13/24 03:38 06:28 11:23 WBC 8.0 RBC 5.10 Hgb 14.9 Hct 41.9 L MCV 82.2 MCH 29.2 MCHC 35.6 RDW 13.3 Plt Count 259 MPV 9.0 L Immature Gran % (Auto) 0.5 H Neut % (Auto) 41.9 L Lymph % (Auto) 43.9 H [place] % (Auto) 9.0 Eos % (Auto) 4.1 H Baso % (Auto) 0.6 Lymph # (Auto) 3.5 [place] # (Auto) 0.7 Eos # (Auto) 0.3 Baso # (Auto) 0.1 Abs Immat Gran (auto) 0.04 H Absolute Neuts (auto) 3.3 Absolute Nucleated RBC 0.000 Nucleated RBC % (auto) 0.0 Sodium 143 Potassium 3.9 Chloride 106 Carbon Dioxide 23 Anion Gap 18 BUN 12 Creatinine 1.47 H Estim Creat Clear Calc 104.5 Estimated GFR 56 Random Glucose 139 H Calcium 9.2 Total Bilirubin 0.3 AST 67 H ALT 61 H Alkaline Phosphatase 86 Total Protein 7.6 Albumin 4.7 Urine Color Yellow Urine Appearance Clear Urine pH 7.5 Ur Specific [place] 1.015 Urine Protein Negative Urine Glucose (UA) Negative Urine Ketones Negative Urine Blood Negative Urine Nitrite Negative Ur Leukocyte Esterase Negative Salicylates < 5.0 L Urine Opiates Screen Not Detected Ur Buprenorphine Scrn Not Detected Ur Oxycodone Screen Not Detected Urine Methadone Screen Not Detected Urine Fentanyl Screen Not Detected Acetaminophen < 3 Ur Barbiturates Screen Not Detected Ur Phencyclidine Scrn Not Detected Ur Amphetamines Screen Not Detected U Benzodiazepines Scrn Not Detected Urine Cocaine Screen Not Detected U Marijuana (THC) Screen POSITIVE H Ethyl Alcohol 139 DS: Summary Hospital Course Hospital Course: HPI: pt is a 28 yo male with hx of schizoaffective disorder, history of alcohol abuse, who presents following being discharged from [facility] accused of drinking while being there being verbally aggressive. Patient reports that he has remained on Zyprexa which he mostly takes regularly, sometimes skipping a night here and there. He says that this past week he got into a verbal debate with a staff person, saying he was careful to not raise his voice, not say any so wears but just trying to express his thoughts. Reports that she called the police, accused him of drinking alcohol and that he needed to leave the premises. He adamantly denies that he had been drinking any alcohol at all; says the police also told the staff person he did not appear to be intoxicated and challenged the decision but ultimately patient was discharged from [facility]. Patient said he wandered around that night having no where to go; he did drink alcohol that next day and self presented to the hospital. Patient reports that a few weeks ago he had another contentious interaction with a staff member whom he said was provoking him. Patient denies any AVH, denies any SI or HI or substance abuse other than the day after he left the nursing home. He says he likes most of the staff members and that they are great... But feels singled out by a few and ultimately feels they really do not want me there. He is unsure what to do. Patient agrees to continue with Zyprexa -patient reports history of verbal altercations with staff and that police having been called twice in the past several weeks with comments that patient has been intimidating. Hospital course: 03/15 on admission, patient was calm, cooperative and in good behavioral and impulse control. He felt wronged by nursing home staff, feeling that a couple of the staff treat him unfairly and he is hesitant to go back. He agrees to contin ue home medication of Zyprexa q.h.s.. But otherwise he denies any psychiatric symptoms and reports that he is doing well, sleeping and eating well. Patient remains very frustrated with nursing home that discharged him on a Wednesday night with no where to go. He feels hurt by that decision and even though he is offered a chance to return, does not want to go. Initially he was ambivalent but has decided that they really do not care about him all that much and he rather just figure out where to live on his own. Patient also has a job that he very much wants to keep and does not want to miss any shifts due to being in the hospital. -patient did not require CIWA as he is only drinking for 1 day and had no withdrawal symptoms. Discontinued Naltrexone since patient has not been taking, says he does not need and it does not help. Patient remained in good behavioral and impulse control and appropriate with peers and staff. Continued to deny any psychiatric symptoms and refuses any medication management, willing to take only Zyprexa 5 mg q.h.s.. Patient put in a 3 day notice. He was offered to return to the nursing home and while patient considered it for couple days, ultimately patient declined, saying they do not really want me there and I do not want to be there anymore either. Patient was eager to get back to work and not miss any shifts because he was grateful for having the job. His plan is to stay at a long-term until he finds another nursing home. 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 Patient remains at baseline and has been in good behavioral/impulse control throughout his time on the unit; while here he was appropriate with peers and staff. He will likely continue to struggle with relapse and mood dysregulation however this is a chronic issue and 1 will that will not resolve with further stay on inpatient unit. Patient His 3 day up and he is not in imminent risk for harm to self or others. Request for discharge honored. Time spent discussing smoking cessation with patient: 3 to 10 minutes Status at Discharge Functional status at discharge: independent ambulation Overall status at discharge: patient is back to baseline Time Spent with Patient Time attestation: Total time managing care of this patient today 40____ minutes. Time spent: Less than 30 minutes Specific discharge activities: Met with patient; discussed with team; prescriptions, charting Discharge Plan Discharge Anticipated Discharge Date/Time: 03/17/24 10:30 Patient Disposition: Skilled Nursing Discharge Diagnosis: schizoaffective disorder, bipolar type Referrals: OCTAVIO TAVAREZ, MEDICATION PROVIDER [Other] - 04/17/24 11:00 am (IN PERSON) Physician,Unknown J [Primary Care Provider] - 1 Week Discharge Medications: Changed olanzapine 5 mg tablet See Rx Instructions .ROUTE .COMPLEX 30 Days Qty: 30 1RF Rx Instructions: take 1 tab at bedtime. May also take 1 tab up to twice a day as needed for agitation hydroxyzine HCl 50 mg tablet 50 mg PO QID PRN (Reason: anxiety) 30 Days Qty: 90 1RF trazodone 100 mg tablet 100 mg PO BEDTIME PRN (Reason: insomnia) 30 Days Qty: 30 1RF Discontinued naltrexone 50 mg tablet 50 mg PO DAILY Discharge Orders: Discharge Order (Routine); Ordered 03/17/24 Ordered By: Bahman Hudson Diet: Regular diet Activity on Discharge: As tolerated Stand Alone Forms: Patient Portal Discharge page Print Language: Peruvian Care Plan Goals: Maintain mood and safe behaviors Take medications as prescribed Continue to pursue sobriety Practice coping skills Continue with outpatient providers and reach out to them as needed Health Concerns: Mood stability and behaviors Sobriety Plan of Treatment: Follow up with your PCP, psychiatric provider and other outpatient providers r egarding above concerns Take medications as prescribed Assessment: Risk assessment at time of discharge:? Patient was interviewed prior to discharge and found to be fully oriented and without any SI or HI. Patient has improved insight and judgment and wants to continue treatment. Patient is not in imminent risk of harm to self or others and has a safety plan that includes presenting to the closest ER or calling 911 if feeling unsafe.? Patient has been observed closely by nursing and unit staff throughout admission; patient has not engaged in any behaviors that suggest dangerousness to self or others and has demonstrated appropriate behaviors and impulse control
[2024-03-17] MEDS: Thiamine HCL 100 MG TABLET PO (09:09)
[2024-03-17] MEDS: Folic Acid 1 MG TABLET PO (09:09)
--- NOTE | 2024-03-17 10:29 | PC.NURSE ---
Pt discharged off unit with all belongings in possession. Pt has arranged his own transportation.
== END 2024-03-17 10:18 | disposition home or self-care (01) | DRG 750 ==
LOC: HO.ED 03-13 12:59 → HO.PM5 03-13 13:10
PROVIDERS: Physician Assistant; Physician Assistant Medical; Admitting Provider Psychiatry & Neurology Psychiatry; Emergency Provider Emergency Medicine; Visit Provider Psychiatry & Neurology Psychiatry
DX: F25.0 Schizoaffective disorder, bipolar type (principal); F10.10 Alcohol abuse, uncomplicated; Z59.02 Unsheltered homelessness; Z87.81 Personal history of (healed) traumatic fracture; Y90.6 Blood alcohol level of 120-199 mg/100 ml; Z79.899 Other long term (current) drug therapy
CPT/HCPCS: 36415; 80053; 80143; 80179; 80307; 81003; 85025; 99284; S9485

== ENCOUNTER → 2024-03-13 12:10 | Outpatient (BNV) | payer OTHER, SELFPAY | PROVIDERS: Admitting Provider Psychiatry & Neurology Psychiatry; Emergency Provider Emergency Medicine; Visit Provider Psychiatry & Neurology Psychiatry | DX: F25.0 Schizoaffective disorder, bipolar type (principal); F10.90 Alcohol use, unspecified, uncomplicated | CPT/HCPCS: 99231; 99232 ==

== ENCOUNTER 2024-08-08 02:40 | Emergency (ER) | payer MEDICAID, SELFPAY ==
--- NOTE | ~2024-08-08 | XR_ITS ---
CLINICAL HISTORY: fall Left knee, 2 views COMPARISON: None FINDINGS: No acute fracture. No dislocation. No effusion. Unremarkable soft tissues. IMPRESSION: No acute findings. This document has been electronically signed by: Darius Luna MD on 08/08/2024 03:33:44
[2024-08-08 02:44] VITALS: BP 121/77; PULSE 106; RESP 16; TEMP 36.7; O2SAT 99; BMI 38.3
--- NOTE | 2024-08-08 03:43 | PC.NURSE ---
xray ordered, sandwich given.
--- NOTE | 2024-08-08 05:01 | ED_ITS ---
HPI - Extremity Injury (Lower) General Chief Complaint: Extremity Injury, Lower Stated Complaint: right leg pain Time Seen by Provider: 08/08/24 04:48 Source: patient Mode of arrival: ambulatory Limitations: no limitations History of Present Illness ED Provider: Dr. Lucia Pearson HPI Narrative: Patient comes to the emergency room stating that he needs an MRI of his left knee. Patient states that about a month ago he slipped on ice. Patient states that he was seen at [facility], an x-ray was negative. Patient denies being seen by Orthopedics. Related Data Previous Rx's ?Medication ?Instructions ?Recorded hydroxyzine HCl 50 mg tablet 50 mg PO QID PRN anxiety 30 days 03/16/24 #90 tabs olanzapine 5 mg tablet See Rx Instructions .Route 03/16/24 .COMPLEX 30 days #30 tabs trazodone 100 mg tablet 100 mg PO BEDTIME PRN insomnia 30 03/16/24 days #30 tabs Allergies Allergy/AdvReac Type Severity Reaction Status Date / Time No Known Allergies Allergy Verified 08/08/24 02:47 [No Known Allergies*] Review of Systems Review of Systems: Constitutional : No Weight loss, No Fever, No Chills, No Night Sweats, No Fatigue, No Malaise ENT/Mouth : No Hearing loss, No Ear Pain, No Nasal Congestion, No Sinus Pain, No Hoarseness, No sore throat, No Rhinorrhea, No Swallowing Difficulty Eyes: No Eye Pain, No Swelling, No Redness, No Foreign Body, No Discharge, No Vision Changes Cardiovascular : No Chest Pain, No SOB, No Dyspnea on Exertion, No Orthopnea, No Edema, No Palpitations Respiratory : No Cough, No Sputum, No Wheezing, No Smoke Exposure, No Dyspnea Gastrointestinal : No Nausea, No Vomiting, No Diarrhea, No Constipation, No abdominal Pain, No Hematochezia, No Melena Genitourinary : no irregular bleeding, No Dysuria, No Urinary Frequency, No Hematuria, No Urinary Incontinence, No Urgency, No Flank Pain, No Urinary Flow Changes, No Hesitancy Musculoskeletal : Complaining of chronic left knee pain, No Myalgias, No Joint Swelling Skin : No Skin Lesions, No rash Neuro : No Weakness, No Numbness, No Paresthesias, No Loss of Consciousness, No Dizziness, No Headache Psych : No Anxiety/Panic, No Depression, No SI/HI/AH/VH, No Social Issues, Heme/Lymph: No Bruising, No Bleeding,No Lymphadenopathy Endocrine : No Polyuria, No Polydipsia, No Temperature Intolerance [facility] Past Medical History Medical History Alcohol use disorder Schizoaffective disorder, bipolar type Chronic schizophrenia No pertinent past medical history Social History Social History Household Members: None Housing: Homeless Do you presently have visiting nurse or other home services: No Unable to assess alcohol history related to: Refusing to respond Alcohol intake: current Alcohol intake frequency: does not drink Alcohol type: beer and hard liquor Patient Tobacco Use Status: Former Tobacco user Years Smoked: 1 Smoked in Last 30 Days: No e-Cigarette/Vaping Use: Never Used Second Hand Smoke Exposure: No Use of substances other than those prescribed or required for medical reasons: No Substance Use Type: Marijuana Advance Directives: No Advance Directives Information Provided: Yes Do you have a plan to hurt others: No Plan service: No Sexual orientation: Straight/Heterosexual Physical Exam Vital Signs: Vital Signs: Last Vital Signs Temp 98.1 F 08/08/24 02:44 Pulse 106 H 08/08/24 02:44 Resp 16 08/08/24 02:44 BP 121/77 08/08/24 02:44 Pulse Ox 99 08/08/24 02:44 O2 Del Method Room Air 08/08/24 02:44 BMI result Body Mass Index 38.3 Const: Other: Appearance: Alert. Oriented X3. No acute distress. Eyes: Pupils equal, round and reactive to light. ENT: Pharynx normal. Neck: Normal inspection. Neck supple. No lymph nodes noted. No crepitus CVS: Normal heart rate and rhythm. Pulses normal. Normal S1 and S2 Respiratory: No respiratory distress. Breath sounds normal. No Wheezing. No rales Abdomen: Soft and nontender. No rigidity. No distention. Skin: Skin warm and dry. Normal skin color. Normal skin turgor. Extremities: No lower extremity edema. No Lacerations. No Rash ambulatory, no swelling, normal flexion extension Neuro: Oriented X 3. No motor deficit. No sensory deficit. Moving all extremities. No slurred speech. CN 2 through 12 grossly intact Psych: calm, cooperative, normal affect Medical Decision Making Medical Decision Making MDM Narrative: Knee x-ray does not show any acute abnormality. Patient upset that we are not ordering an MRI at this time. I discussed with the patient that MRIs are not done emergently from the emergency room for chronic issues, he will need to be referred through his primary care physician or orthopedic surgeon. Patient was given the phone number to follow-up with them Patient upset that he is not getting referred directly for an MRI outpatient. Patient does not have a PCP, no Orthopedics, no one to follow with the imaging. I discussed with the patient that he needs to be seen by Orthopedics first, and then they can decide if patient needs MRI 1st or physical therapy. Differential Diagnosis Differential Diagnoses: The differential diagnosis associated with the presentation includes (Meniscal injury versus ligament injury) Independent Interpretation I performed an independent interpretation of an: Plain X-Ray Radiology Impression Discussion of test interpretation with radiology: I have reviewed the radiologist's reading. Radiologist Impression: No acute fracture. No dislocation. No effusion. Unremarkable soft tissues. IMPRESSION: No acute findings. Discharge Plan Discharge Clinical Impression: Chronic knee pain Patient Disposition: Home, Self-Care Instructions: Arthralgia (ED) Additional Instructions: Please follow-up with your primary care physician and Orthopedics this week. If you have any worsening or new symptoms, please return to the emergency room or call 911 Prescriptions: No Action olanzapine 5 mg tablet See Rx Instructions .ROUTE .COMPLEX 30 Days Qty: 30 1RF Rx Instructions: take 1 tab at bedtime. May also take 1 tab up to twice a day as needed for agitation hydroxyzine HCl 50 mg tablet 50 mg PO QID PRN (Reason: anxiety) 30 Days Qty: 90 1RF trazodone 100 mg tablet 100 mg PO BEDTIME PRN (Reason: insomnia) 30 Days Qty: 30 1RF Referrals: Asmita Farah PA-C [Physician [employer]] - 1 day Print Language: Zambian
--- NOTE | 2024-08-08 05:19 | PC.NURSE ---
pt refusing bp pressure.
--- NOTE | 2024-08-08 05:20 | PC.NURSE ---
Reviewed discharge instruction with pt, pt verbalized understanding, after several explanation. no sign of distress.
[2024-08-08 05:22] VITALS: BP 121/77; PULSE 106; RESP 16; TEMP 36.7; O2SAT 99
== END 2024-08-08 05:23 | disposition home or self-care (01) ==
PROVIDERS: Emergency Provider Emergency Medicine
DX: M25.562 Pain in left knee (principal); G89.29 Other chronic pain; Z91.81 History of falling
CPT/HCPCS: 73560; 99283; 99284

== ENCOUNTER → 2024-08-08 03:08 | Outpatient (BNV) | payer MEDICAID, SELFPAY | PROVIDERS: Visit Provider Radiology Diagnostic Radiology | DX: M25.561 Pain in right knee (principal) | CPT/HCPCS: 73560 ==

== ENCOUNTER → 2024-10-31 12:52 | Outpatient (BNVA) | payer MEDICAID, SELFPAY | PROVIDERS: Visit Provider Orthopaedic Surgery ==

== ENCOUNTER 2024-11-07 14:05 | Outpatient (AMB) | payer MEDICAID, SELFPAY ==
--- NOTE | 2024-11-07 14:17 | MHC.OFFVIS ---
Vital Signs 11/07/24 14:21 Height 6 ft 1 in Weight 290 lb BMI 38.3 Intake Visit Reasons: Left knee pain and giving way Intake Note: Jefe is a 29 year old male who presents with complaints of progressively worsening left knee pain and giving way. The patient states that when he was 16 years old he suffered a right knee injury while playing football. He underwent anterior cruciate ligament reconstruction surgery at that time. He reports mild intermittent discomfort in his right knee. The patient states that he injured his left knee approximately 6 months ago when he slipped and fell on the ice. Since that time his symptoms have gotten worse. He has failed the last 6 weeks of conservative treatment which has included physical therapy exercises, a home exercise program, Tylenol and anti-inflammatory medicines. Most of the pain is along the medial aspect of his knee. He states that his left knee will give out several times per day. Allergies No Known Allergies (No Known Allergies*) Allergy (Verified 11/07/24 14:18) Medication List - Last Reconciled 11/07/24 by Sukumar Jean Baptiste MD hydroxyzine HCl 50 mg PO QID PRN 30 days olanzapine take 1 tab at bedtime. May also take 1 tab up to twice a day as needed for agitation 30 days trazodone 100 mg PO BEDTIME PRN 30 days PFSH Medical History Alcohol use disorder Schizoaffective disorder, bipolar type Chronic schizophrenia No pertinent past medical history Social History Household Members: None Housing: Homeless Do you presently have visiting nurse or other home services: No Unable to assess alcohol history related to: Refusing to respond Alcohol intake: current Alcohol intake frequency: does not drink Alcohol type: beer and hard liquor Patient Tobacco Use Status: Former Tobacco user Years Smoked: 1 e-Cigarette/Vaping Use: Never Used Second Hand Smoke Exposure: No Substance Use Type: Marijuana service: No Sexual orientation: Straight/Heterosexual Physical Exam Vital Signs: BMI result Body Mass Index 38.3 Const Other: Well-nourished well-developed very friendly male awake alert and oriented x3 in no acute distress Extrem Other: Bilateral lower extremity examination shows good capillary refill, no skin lesions noted, normal sensation light touch Left knee examination shows a minimal effusion, mild crepitus with range of motion, tenderness along his medial joint line, positive Helio's test, no instability Results Reviewed Results Reviewed: Standing full weight-bearing x-rays of the patient's left knee show minimal diffuse joint space narrowing, no acute bony abnormalities Assessment & Plan Assessment & Plan (1) Tear of medial meniscus of left knee: Code(s): S83.242A - Other tear of medial meniscus, current injury, left knee, initial encounter Category: Medical Plan Mr. Blank presents with progressively worsening left knee pain and mechanical symptoms most likely due to a medial meniscus tear. Thus, I will send the patient for an MRI of his left knee for further evaluation. I will contact the patient by phone once the MRI results are available to discuss the findings and treatment options. He will contact me prior to that time should his symptoms worsen in any way. I spent 20 minutes in reviewing the patient's records and imaging studies, seeing the patient and documenting in the medical record. Orders: Orders MR knee LT wo con 11/07/24 S83.242A - Other tear of medial meniscus, current injury, left knee, initial encounter Coding Level of Care Code New Pt Level 3 (67758) Complex EM visit Add On G2211 Diagnoses Tear of medial meniscus of left knee S83.242A
[2024-11-07 14:21] VITALS: BMI 38.3
--- OUTSIDE RECORDS SUMMARY | 2024-11-07 16:15 | XMS_ITS | Clinical Summary ---
Author Organization [facility] Address [address] [place] [address] Phone Care Team Providers Care Provider Relations Specialist Name Role Phone Physician, No Pcp Primary Care Provider Unavaila ble Allergies No known active allergies Medical History Medical History Date Comments Bipolar 1 disorder ([facility] V24, [facility] V28) Depression Social History Tobacco Use Types Packs/Day Years Used Date Smoking Tobacco: Never Smokeless Tobacco: Never Tobacco Cessation:Counseling Given: Not Answered Alcohol Use Standard Drinks/Week Comments Yes 0 (1 standard drink = 0.6 oz pur e alcohol) Sex and Gender Information Value Date Recorded Sex Assigned at Male 07/27/2024 1:30 AM EST Legal Sex Male 5:31 PM EST Gender Identity Male 07/27/2024 1:30 AM EST Sexual Orientation Straight 07/27/2024 1: 30 AM EST Obstetrics History Last Filed Vital Signs Vital Sign Reading Time Taken Comments Blood Pressure 145/96 07/26/2024 11:46 PM EST Pulse 110 07/26/2024 11:46 PM EST Temperature 36.2 ??C (97.2 ??F) 07/26/2024 11:[address] Respiratory Rate 14 07/26/2024 11:46 PM EST Oxygen Saturation 96% 07/26/2024 11:46 PM EST Inhaled Oxygen Concentration - - Weight 132 kg (290 lb) 07/26/2024 11:46 PM EST Height 185.4 cm (6' 1 ) 07/26/2024 11:46 PM EST Body Mass Index 38.26 07/26/2024 11:46 PM EST Plan of Treatment Health Maintenance Due Date Last Done Comments DTaP,Tdap,and Td Vaccines (1 - Tdap) 2012 Hepatitis B Vaccines (1 of 3 - 19+ 3-dose series) 2012 Depression Screening 04/25/2022 HIV Screening 04/25/2022 Hepatitis C Screening 04/25/2022 Social Influencers of Health Screening 04/25/2022 COVID-19 Vaccine (1 - 2023-2 5 season) 2024 Influenza Vaccine (Season Ended) 2025 Hepatitis A Vaccines Aged Out 04/13/2018 No long er eligible based on patient's age to complete this topic HIB Vaccines Aged Out No longer eligi ble based on patient's age to complete this topic HPV Vaccines Aged Out No longer eligi ble based on patient's age to complete this topic IPV Vaccines Aged Out No longer eligi ble based on patient's age to complete this topic MMR Vaccines Aged Out No longer eligi ble based on patient's age to complete this topic Meningococcal ACWY Vaccine Aged Out N o longer eligible based on patient's age to complete this topic Meningococcal B Vaccine Aged Out No l onger eligible based on patient's age to complete this topic Pneumococcal Vaccine: Pediat rics (0 to 5 Years) and At-Risk Patients (6 to 64 Years) Aged Out No longer eligi ble based on patient's age to complete this topic RSV Immunization Patients Un jc 20 months Aged Out No longer eligible b ased on patient's age to complete this topic Varicella Vaccines Aged Out No longer eligible based on patient's age to complete this topic Insurance MEDICAID - [place] Care Teams Provider Relations Specialist Relationship Specialty Start Date End Date Physician, No Pcp PCP - General 04/10/24
== END 2024-11-07 14:32 | disposition home or self-care (01) ==
LOC: HO.HOS 14:05
PROVIDERS: Visit Provider Orthopaedic Surgery
DX: S83.242A Other tear of medial meniscus, current injury, left knee, initial encounter (principal)
CPT/HCPCS: 99203

== ENCOUNTER → 2024-11-07 14:05 | Outpatient (BNVA) | payer MEDICAID, SELFPAY | PROVIDERS: Visit Provider Orthopaedic Surgery | DX: M25.562 Pain in left knee (principal); S83.242A Other tear of medial meniscus, current injury, left knee, initial encounter | CPT/HCPCS: 99202 ==